=== PATIENT | male | born 1955 | race Caucasian/White ===

== ENCOUNTER 2019-01-02 15:30 | Outpatient (CLI) | payer OTHER, SELFPAY ==
--- NOTE | 2019-01-02 15:50 | DI.RAD_ITS ---
SYMPTOM/DIAGNOSIS: DRY COUGH, R05 PA AND LATERAL CHEST: No priors. There is a poor inspiration with crowding of the pulmonary vasculature. Heart size and pulmonary vasculature are within normal limits. No focal consolidating infiltrates, effusions or pneumothoraces are identified. No acute osseous abnormality is identified. IMPRESSION: 1. Limited exam due to poor inspiration. 2. No acute pulmonary process.
== END 2019-01-02 15:50 ==
PROVIDERS: PCP Nurse Practitioner; Visit Provider Nurse Practitioner
DX: R05 Cough (principal)
CPT/HCPCS: 71046

== ENCOUNTER 2019-05-07 01:57 | Outpatient (CLI) | payer OTHER, SELFPAY ==
[2019-05-07 08:37] LABS: ALT 35 U/L (12-78); AST 24 U/L (15-37); Albumin 3.9 g/dL (3.4-5.0); Alkaline Phosphatase 80 U/L (46-116); BUN 27 mg/dL (7-18); Bilirubin, Total 0.8 mg/dL (0.2-1.0); CREATININE 0.93 mg/dL (0.70-1.30); Calcium 8.6 mg/dL (8.5-10.1); Calculated LDL 103 mg/dL; Chloride 105 mmol/L (98-107); Cholesterol 160 mg/dL (50-200); Glucose 94 mg/dL (70-100); HDL Cholesterol 44 mg/dL (40-60); Potassium 4.5 mmol/L (3.5-5.1); Sodium 141 mmol/L (136-145); Total Protein 6.7 g/dL (6.4-8.2); Triglyceride 66 mg/dL (30-150)
== END 2019-05-07 02:17 ==
PROVIDERS: PCP Nurse Practitioner; Visit Provider Nurse Practitioner
DX: E78.00 Pure hypercholesterolemia, unspecified (principal)
CPT/HCPCS: 36415; 80053; 80061; 83721

== ENCOUNTER 2019-09-06 15:53 | Outpatient (REF) | payer OTHER, SELFPAY ==
--- NOTE | 2019-09-06 15:15 | SKI_PTH ---
PATIENT: Edwin Weiss LOC: [facility] U#:[id number] AGE/SX: 64/M ROOM: RE09/06/[address]: Stephanie Duval APRN : 1955 BED: DIS: 09/06/2019 SPEC #: [id number] RECD: 09/06/19 17:20 STATUS: MARTINE REQ #: [id number] JAMEE: 09/06/19 15:[address]: Stephanie Duval DEPT: Surgical Specimen RECD BY: Akila Velazquez ENTERED: 09/06/19 17:20 SP TYPE: ZAIDA HOLDER DR: Sirena Eli APRN Tissues: 1 - SKIN CYST/TAG/DEBRIDEMENT Procedures: SKIN LEVEL 4 Comments: [id number]
== END 2019-09-06 16:13 ==
LOC: LBN 15:53
PROVIDERS: PCP Nurse Practitioner; Visit Provider Nurse Practitioner Family
DX: L98.0 Pyogenic granuloma (principal)
CPT/HCPCS: 88304; 88305

== ENCOUNTER 2019-12-02 11:13 | Outpatient (CLI) | payer OTHER, SELFPAY ==
[2019-12-02 12:43] LABS: ALT 33 U/L (16-63); AST 21 U/L (15-37); Albumin 3.8 g/dL (3.4-5.0); Alkaline Phosphatase 76 U/L (46-116); Anion Gap 7.5 mmol/L (3-11); BUN 23 mg/dL (7-18); Bilirubin, Total 0.5 mg/dL (0.2-1.0); CO2 29.5 mmol/L (21.0-32.0); Calcium 8.5 mg/dL (8.5-10.1); Chloride 104 mmol/L (98-107); Glucose 100 mg/dL (74-106); Lipase 135 U/L (73-393); Potassium 3.8 mmol/L (3.5-5.1); Sodium 141 mmol/L (136-145); Total Protein 6.5 g/dL (6.4-8.2)
[2019-12-02 14:46] LABS: Abs Immature Grans 0.01 k/cumm (0.0-0.09); Absolute Basophil Count 0.02 k/cumm (0.0-0.2); Absolute Lymphocyte Count 1.71 k/cumm (1.2-3.4); Absolute Monocyte Count 1.06 k/cumm (0.11-0.7); Absolute Neutrophil Count 5.49 k/cumm (1.2-6.7); Basophils % 0.2; Eosinophils % 2.4; HCT 45.4 % (40.0-50.0); HGB 15.1 g/dL (13.5-17.5); Immature Grans % 0.1 %; Lymphocytes % 20.1; Mean Corp. HGB Concentration 33.3 g/dL (32.0-36.0); Mean Corpuscular Hemoglobin 31.6 pg (27.0-33.0); Mean Platelet Volume 10.3 fL (8.0-11.0); Monocytes % 12.5; Neutrophils % 64.7; Platelet Count 290 x1000/uL (130-400); RBC 4.78 m/cumm (4.50-6.00); RBC Distribution Width 12.3 % (11.8-14.1); White Blood Cell Count 8.49 k/cumm (4.4-10.8)
== END 2019-12-02 11:33 ==
PROVIDERS: PCP Nurse Practitioner; Visit Provider Nurse Practitioner
DX: R10.13 Epigastric pain (principal); R19.8 Other specified symptoms and signs involving the digestive system and abdomen; R10.32 Left lower quadrant pain; Z87.19 Personal history of other diseases of the digestive system
CPT/HCPCS: 36415; 80053; 83690; 85025

== ENCOUNTER 2019-12-03 17:47 | Emergency (ER) | payer OTHER, SELFPAY ==
[2019-12-03 17:58] VITALS: BP 161/97; PULSE 71; RESP 18; TEMP 36.6; O2SAT 98
[2019-12-03 18:40] LABS: Abs Immature Grans 0.02 k/cumm (0.0-0.09); Absolute Basophil Count 0.03 k/cumm (0.0-0.2); Absolute Eosinophil Count 0.23 k/cumm (0.0-0.7); Absolute Lymphocyte Count 1.94 k/cumm (1.2-3.4); Absolute Monocyte Count 0.85 k/cumm (0.11-0.7); Absolute Neutrophil Count 4.35 k/cumm (1.2-6.7); Basophils % 0.4; Eosinophils % 3.1; HCT 45.8 % (40.0-50.0); HGB 15.6 g/dL (13.5-17.5); Immature Grans % 0.3 %; Lymphocytes % 26.1; Mean Corp. HGB Concentration 34.1 g/dL (32.0-36.0); Mean Corpuscular Volume 93.9 fL (80-95); Mean Platelet Volume 9.8 fL (8.0-11.0); Monocytes % 11.5; Neutrophils % 58.6; Platelet Count 270 x1000/uL (130-400); RBC 4.88 m/cumm (4.50-6.00); RBC Distribution Width 12.2 % (11.8-14.1); White Blood Cell Count 7.42 k/cumm (4.4-10.8)
[2019-12-03 18:54] LABS: ALT 35 U/L (16-63); AST 25 U/L (15-37); Alkaline Phosphatase 73 U/L (46-116); Anion Gap 6.1 mmol/L (3-11); BUN 18 mg/dL (7-18); Bilirubin, Total 0.8 mg/dL (0.2-1.0); CO2 28.9 mmol/L (21.0-32.0); CREATININE 0.97 mg/dL (0.70-1.30); Calcium 8.5 mg/dL (8.5-10.1); Chloride 105 mmol/L (98-107); Glucose 96 mg/dL (74-106); Lipase 129 U/L (73-393); Potassium 3.9 mmol/L (3.5-5.1); Sodium 140 mmol/L (136-145); Total Protein 7.2 g/dL (6.4-8.2)
[2019-12-03] MEDS: Omnipaque 350 MG/ML 100 ML BTL IV (18:56)
--- NOTE | 2019-12-03 18:58 | DI.CT_ITS ---
EXAM: CT ABDOMEN PELVIS W CLINICAL HISTORY: abdominal pain, tender upper abd, rebound tender TECHNIQUE: Imaging Protocol: Axial computed tomography images with coronal and sagittal reformatted images were created and reviewed CONTRAST MATERIAL: Intravenous: Omnipaque 350 Contrast volume:100 mL Oral: No COMPARISON: No exams were available for comparison FINDINGS: ABDOMEN: Lung Bases: Dependent atelectasis. Liver: Normal density. No measurable mass. Portal, Superior Mesenteric, and Splenic Veins: Unremarkable. Gallbladder and Biliary Tract: No radiodense calculus or dilation. Pancreas: Normal density, no abnormal calcifications or inflammatory process. Spleen: Normal. Adrenals: No masses seen. Kidneys: Normal size, contour and axis. No radiodense stones or obstructive uropathy. 2.5 cm left catie al cyst. Abdominal Aorta: Abdominal portion non-dilated. Bowel: There is mild bowel wall thickening in loops of small bowel in the right upper quadrant of the abdomen. Mild increased attenuation in the surrounding mesentery is noted. The findings are suspic ious for an inflammatory or infectious enteritis. No bowel obstruction. Appendix is unremarkable. Peritoneal Cavity: No ascites, collection or mesenteric inflammatory response. Lymph Nodes: Within normal limits. Bones: Unremarkable. Soft Tissues: Unremarkable. PELVIS: Bladder: Symmetric distention, no gross wall thickening. Reproductive Organs: Unremarkable as visualized. Lymph Nodes: Within normal limits. Bones: Within normal limits. IMPRESSION: Findings suspicious for an inflammatory or infectious enteritis in the right abdomen. DATA REPOSITORY: All CT scans at this facility are submitted to the National Radiology Data Registry (NRDR) Dose Index Registry (DIR) with the [employer] [place] [employer] (ACR). RADIATION OPTIMIZATION: All CT scans at this facility use at least one of these dose optimization te chniques: automated exposure control; mA and/or kV adjustment per patient size (includes targeted exa ms where dose is matched to clinical indication); or iterative reconstruction.
--- NOTE | 2019-12-03 19:31 | DI.VRAD_ITS ---
PROCEDURE INFORMATION: Exam: CT Abdomen And Pelvis With Contrast Exam date and time: 12/03/2019 6:24 PM Age: 64 years old Clinical indication: Other: Abdominal pain, tender upper abd, rebound tender; Prior surgery; Surgery date: 6+ months TECHNIQUE: Imaging protocol: Computed tomography of the abdomen and pelvis with intravenous contrast. Radiation optimization: All CT scans at this facility use at least one of these dose optimization techniques: automated exposure control; mA and/or kV adjustment per patient size (includes targeted exams where dose is matched to clinical indication); or iterative reconstruction. Contrast material: OMNIPAQUE 350; Contrast volume: 100 ml; Contrast route: IV; COMPARISON: No relevant prior studies available. FINDINGS: Liver: There is hepatomegaly and fatty infiltration of the liver. No mass. Gallbladder and bile ducts: Normal. No calcified stones. No ductal dilation. Pancreas: Normal. No ductal dilation. Spleen: Normal. No splenomegaly. Adrenals: Normal. No mass. Kidneys and ureters: 25 mm cyst in left kidney. There is no hydronephrosis. Stomach and bowel: Unremarkable. No obstruction. No mucosal thickening. Appendix: A normal appendix is identified. Intraperitoneal space: Unremarkable. No free air. No significant fluid collection. Vasculature: Unremarkable. No abdominal aortic aneurysm. Lymph nodes: Unremarkable. No enlarged lymph nodes. Bladder: Unremarkable as visualized. Reproductive: The prostate gland is enlarged. Bones/joints: Unremarkable. No acute fracture. Soft tissues: Unremarkable. IMPRESSION: No acute abnormality. Dictated and Authenticated by: Joy Almaraz MD. Ordering:ANDRIA Burnett MD
--- NOTE | 2019-12-03 20:13 | W.ED.GENAD ---
Discharge Plan Disposition Patient Disposition: HOME Condition: Stable Discharge Details Chief Complaint: Abd Prob Clinical Impression: Abdominal pain Primary Care Provider: Sirena Eli ED Provider: Lex Camarillo Home Meds and New Rx's Prescriptions: Continued simvastatin 40 mg tablet 40 mg PO DAILY RF: 0 aspirin [Aspir-81] 81 MG tablet,delayed release (DR/EC) 81 mg PO DAILY Qty: 1 RF: 11 tamsulosin 0.4 mg capsule 0.4 mg PO DAILY Qty: 90 RF: 3 Discharge Instructions Instructions: Abdominal Pain (ED) Additional Instructions: Maintain a clear liquid diet tonight. You may advance her diet to soft bland diet tomorrow and then slowly advance thereafter. Please contact your primary care physician to arrange follow-up. Call tomorrow. Return to the ER immediately for any worsening or new concerning symptoms. Referrals: Sirena Eli, [employer] OFFICER [Primary Care Provider] - Discharge Data Discharge Date/Time-TO BE ENTERED AT DEPARTURE: 12/03/19 20:25 Medical Decision Making 64-year-old male presents with upper bilateral abdominal pain for the past 3 days that seems to be coming in sharp waves. He has tenderness diffuse abdomen with some rebound tenderness. I considered acute life-threatening intra-abdominal surgical process including bowel obstruction versus pancreatitis versus other. Labs were reviewed and nondiagnostic. No leukocytosis. Normal LFTs. Normal lipase. Lactate normal. CT of the abdomen pelvis was reviewed and interpreted by radiology:IMPRESSION:No acute abnormality. Patient was reassessed and was asleep when I first entered the room and remained comfortable with no significant tenderness on exam. Plan for outpatient follow-up with PCP. I encouraged the patient to return immediately for any worsening or new concerning symptoms. Patient verbalized understanding of discharge instructions. Lab Data Lab results reviewed: Yes I reviewed the patient's lab results. HPI General Mode of arrival: ambulatory. Date/Time Provider Initiated Documentation: 12/03/19 18:05. Limitations to Documentation: no limitations. Information obtained by: patient. HPI Narrative: 64-year-old male here with chief complaint of abdominal pain. Patient notes abdominal pain started 2 days ago and has persisted. Pain comes in sharp waves. Pain localized to upper abdomen. No modifiers. No associated fever, nausea, vomiting, or diarrhea. He has no associated chest pain or shortness of breath. Patient states that he has had similar pain localized to his left lower quadrant in the past with flares of diverticulitis. Related Data Home Medications Medication Instructions Recorded Confirmed aspirin [Aspir-81] 81 mg PO DAILY #1 tab-cap 11/27/15 12/03/19 tamsulosin 0.4 mg capsule 0.4 mg PO DAILY #90 cap 06/06/19 12/03/19 simvastatin 40 mg tablet 40 mg PO DAILY 12/02/19 12/03/19 Previous Rx's Medication Instructions Recorded tamsulosin 0.4 mg capsule 0.4 mg PO DAILY #90 cap 06/06/19 Allergies Allergy/AdvReac Type Severity Reaction Status Date / Time No Known Allergies Allergy Verified 12/03/19 18:01 General Stated Complaint: Abd Prob AIDA: 3 Review of Systems All systems reviewed & are unremarkable except as noted in HPI and below Constitutional Constitutional: Denies fever(s) Gastrointestinal Gastrointestinal: Reports as per HPI, Reports abdominal pain, Denies melena, Denies loose stools and Denies hematemesis [facility] Medical History (Updated 12/03/19 @ 22:53 by Lex Camarillo MD) Diverticulitis (Chronic) SCC (squamous cell carcinoma) (Acute) R chondral bowl 04/2003 Surgical History Status post epidural steroid injection (Acute 07/12/18) Cervical epidural steroid injection [facility] Family History Mother No problems noted. Father Diabetes Heart disease Myocardial infarction Sister No problems noted. Sister No problems noted. Sister No problems noted. Brother , cancer at age 70. No problems noted. Brother , cancer at age 70. No problems noted. Brother No problems noted. Son No problems noted. Son No problems noted. 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 Working smoke detector in home: Yes Carbon monox detector in home: Yes Do you feel safe at home: Yes Do you feel safe in your relationship?: Yes Exam Const General: cooperative and no acute distress HENMT Mouth: moist mucous membranes Eyes Conjunctivae: normal conjunctivae Sclera: normal sclerae Resp Auscultation: clear to auscultation bilaterally, no rales, no rhonchi and no wheezes Cardio Jugular venous pressure: no JVD Rate: regular rate and not tachycardic Rhythm: regular rhythm GI Palpation: soft, not firm, no guarding, no masses, not rigid, tender (diffuse, worse upper abdomen) with rebound tenderness and No ascites Auscultation: normal bowel sounds Skin General skin exam: no rashes or lesions noted Neuro General: alert, awake and tone normal Extrem General: no edema Psych Appearance: grossly normal Course Vital Signs Vital signs: Vital Signs Temperature 36.6 C 12/03/19 17:58 Pulse 71 12/03/19 17:58 Respiratory Rate 18 12/03/19 17:58 Blood Pressure 161/97 H 12/03/19 17:58 Pulse Oximetry 98 12/03/19 17:58 Temperature 36.6 C 12/03/19 17:58 Temperature Source Skin 12/03/19 17:58 Pulse 71 12/03/19 17:58 Respiratory Rate 18 12/03/19 17:58 Respiratory Effort Non-Labored 12/03/19 18:09 Blood Pressure 161/97 H 12/03/19 17:58 Pulse Oximetry 98 12/03/19 17:58 Oxygen Delivery Method Room Air 12/03/19 17:58 Oxygen Flow Rate 0 12/03/19 17:58 Pain Level 5 12/03/19 17:58 Lab/Test Results Lab/Test Results: Laboratory Tests Range/Units 12/03/19 12/03/19 12/03/19 18:15 18:15 18:15 WBC (4.4-10.8) k/cumm 7.42 RBC (4.50-6.00) m/cumm 4.88 Hgb (13.5-17.5) g/dL 15.6 Hct (40.0-50.0) % 45.8 MCV (80-95) fL 93.9 MCH (27.0-33.0) pg 32.0 MCHC (32.0-36.0) g/dL 34.1 RDW (11.8-14.1) % 12.2 Plt Count (130-400) x1000/uL 270 MPV (8.0-11.0) fL 9.8 Immature Gran % % 0.3 Neutrophils % 58.6 Lymphocytes % 26.1 Monocytes % 11.5 Eosinophils % 3.1 Basophils % 0.4 Absolute Neutrophils (1.2-6.7) k/cumm 4.35 Absolute Lymphocytes (1.2-3.4) k/cumm 1.94 Absolute Monocytes (0.11-0.7) k/cumm 0.85 H Absolute Eosinophils (0.0-0.7) k/cumm 0.23 Absolute Basophils (0.0-0.2) k/cumm 0.03 Sodium (136-145) mmol/L 140 Potassium (3.5-5.1) mmol/L 3.9 Chloride (98-107) mmol/L 105 Carbon Dioxide (21.0-32.0) mmol/L 28.9 Anion Gap (3-11) mmol/L 6.1 BUN (7-18) mg/dL 18 Creatinine (0.70-1.30) mg/dL 0.97 Estimated GFR/1.73 m2 (mL/min/1.73m2) >= 60.00 Glucose (74-106) mg/dL 96 Lactate (0.6-1.4) mmol/L 1.0 Calcium (8.5-10.1) mg/dL 8.5 Total Bilirubin (0.2-1.0) mg/dL 0.8 AST (15-37) U/L 25 ALT (16-63) U/L 35 Alkaline Phosphatase (46-116) U/L 73 Total Protein (6.4-8.2) g/dL 7.2 Albumin (3.4-5.0) g/dL 4.0 Lipase (73-393) U/L 129
[2019-12-03 20:24] VITALS: BP 145/94; PULSE 61; RESP 16; TEMP 36.9; O2SAT 95
== END 2019-12-03 20:25 | disposition home or self-care (01) ==
PROVIDERS: Emergency Provider Student in an Organized Health Care Education/Training Program; PCP Nurse Practitioner
DX: R10.10 Upper abdominal pain, unspecified (principal)
CPT/HCPCS: 36415; 80053; 83690; 99285; 74177; 83605; 85025; 99284; J3490

== ENCOUNTER 2019-12-30 06:03 | Day surgery (SDC) | payer OTHER, SELFPAY ==
[2019-12-30 06:13] VITALS: BP 131/86; PULSE 73; RESP 16; TEMP 36.6; O2SAT 98
[2019-12-30] MEDS: Lactated Ringers 1,000 ML 80 ML IV (06:36)
--- NOTE | 2019-12-30 06:43 | W.COLOREPORT ---
Date of service: 12/30/19 Time of Service: 07: Colonoscopy Report Date of procedure: 12/30/19 Pre-op diagnosis general: Abnormal CT scan/ Colon Cancer Screening Post-op diagnosis procedure note: other (Colorectal polyps and diverticulosis) Procedure: Colonoscopy with polypectomy Surgeon: Cintia Amaral Anesthesia proc note operative: other (General/ ASA 2/Bessy Guaman, NIKOLE) Estimated blood loss (mL): 5 Pathology: other (Cecal polyps x3, ascending polyp, descending polyp, sigmoid polyp, rectal polyp) Complications: None Disposition: same day Indications: Mr. Weiss is a pleasant 64 year old male who is here to discuss a screening colonoscopy. His last Colonoscopy was in 2009 and showed diverticulosis. He has had one episode of diverticulitis in the past. He has had no changes in bowel habits, melena or hematochezia. He does tell me that he started having LUQ discomfort starting last monday. He went to his PCP who ordered an outpatient CT scan. On monday the pain was worse and so he went to the ER. The CT scan showed a few loops of mildly thickened small bowel. He denies any diarrhea. His discomfort has gotten a little better over the last few days. He denies fevers. Labs in the ER were normal. Risks, benefits and complications have been reviewed. Complications include but are not limited to bleeding, pain, perforation, missed small lesion/polyp, sore throat, aspiration and adverse reaction to the medications. Questions were entertained and answered to their satisfaction and they wished to proceed. No guarantees were given or implied. Prep: Miralax/Dulcolax Procedure Start Time: : Procedure End Time: :01 Retraction Time: 30 minutes Findings: Multiple sessile polyps Handful of diverticula in the transverse and descending colon Procedure Description: After informed consent was obtained the patient was taken to the procedure room and placed in a left decubitous position. Monitors were applied and a time out was done. The patients name, date of , procedure, allergies to medications and metal in their body was reviewed. The patient was then sedated. Once sedated and comfortable a rectal exam was done. External exam was normal. Internal exam revealed a normal sphincter tone and no palpable masses. The prostate felt smooth. The scope was then introduced and retro-flexed. No internal hemorrhoids, masses or polyps were identified on retro-flexion. The scope was then advanced to the cecum without difficulty. The TI and appendiceal orifice were identified. The prep was good. The scope was then slowly retracted over 30 minutes back into the rectum. Polyps were removed with cold forceps in the cecum, ascending, descending, sigmoid and rectum. There was mild diverticulosis of the colon. The scope was removed and the patient was woken up and taken back to Same day surgery in stable condition. The patient tolerated the procedure well and there were no immediate complications. Follow up: The patient should follow up in 3-5 years unless they develop changes in bowel habits or other new gastrointestinal complaints.
--- NOTE | 2019-12-30 06:44 | W.PM.DSUDISC ---
Discharge Plan Disposition Patient Disposition: HOME Condition: Good Discharge Details Reason For Visit: Abnormal CT scan/ Colon Cancer Screening Attending Provider: Cintia Amaral Primary Care Provider: Sirena Eli Home Meds and New Rx's Prescriptions: Continued simvastatin 40 mg tablet 40 mg PO DAILY RF: 0 aspirin [Aspir-81] 81 MG tablet,delayed release (DR/EC) 81 mg PO DAILY Qty: 1 RF: 11 tamsulosin 0.4 mg capsule 0.4 mg PO DAILY Qty: 90 RF: 3 Discharge Instructions Instructions: Colorectal Polyps (GEN), Diverticulosis (DC) Additional Instructions: Findings: mild diverticulosis 7 polyps Follow up: 3-5 years Please call if you develop: fevers >101.5 Nausea or Vomiting Abdominal pain that is not transient DAY SURGERY UNIT POST ENDOSCOPY INSTRUCTIONS 1. Because there will be medication in your system for the next 24 hours, you may feel a little sleepy. Your coordination will be affected. Therefore: a. Do not drive or operate dangerous equipment for 24 hours. b. Do not drink alcohol beverages for 24 hours (not even beer). c. Plan to go home and rest for the day. 2. Generally there are no restrictions on your activity after a day or so has gone by, but you may feel a bit fatigued for a few days. 3 After you arrive home you may have a light meal and return to a normal diet as you can tolerate it without feeling sick to your stomach. 4. After surgery, you may feel pain or discomfort. This should be only transient, but if it persists please contact your doctor. 5. If there are any questions regarding the findings of your procedure, please feel free to contact your doctor. 6. If you are unable to contact your doctor with a problem, contact the hospital at [phone]. 7. Continue all your regular medications unless directed otherwise. I understand the above instructions and have no questions. Signature of Patient or Responsible Adult Escort Date/Time Name of Responsible Adult Escort Signature of Nurse Date/Time Activity:: Activity as Tolerated Diet:: high fiber diet Discharge Orders Discharge Orders: Discharge Order (Routine); Ordered 12/30/19 Ordered By: Cintia Amaral DS: Diagnosis Discharge Diagnosis (1) Colorectal polyps: Status: Acute
--- NOTE | 2019-12-30 07:34 | BOWEL_PTH ---
PATIENT: Edwin Weiss LOC: [facility] U#:[id number] AGE/SX: 64/M ROOM: RE12/30/[address]: Cintia Amaral MD : 1955 BED: DIS: 12/30/2019 SPEC #: [id number] RECD: 12/30/19 12:37 STATUS: MARTINE RE #: [id number] JAMEE: 12/30/19 07:[address]: Cintia Amaral DEPT: Surgical Specimen RECD BY: Akila Velazquez ENTERED: 12/30/19 12:40 SP TYPE: Bowel OTHR DR: Sirena Eli APRN Tissues: 1 - BIOPSY BOWEL 2 - BIOPSY BOWEL 3 - BIOPSY BOWEL 4 - BIOPSY BOWEL 5 - BIOPSY BOWEL Procedures: GROSS AND MICRO LEVEL 4 Comments: [id number]
[2019-12-30 08:35] VITALS: BP 125/79; PULSE 59; RESP 16; TEMP 36.4; O2SAT 98
== END 2019-12-30 09:00 | disposition home or self-care (01) ==
PROVIDERS: PCP Nurse Practitioner; Visit Provider Surgery
PROC: 0DJD8ZZ Inspection of Lower Intestinal Tract, Via Natural or Artificial Opening Endoscopic (ICD-10-PCS; CPT 45378; principal; 2019-12-30 07:30)
DX: Z12.11 Encounter for screening for malignant neoplasm of colon (principal); D12.0 Benign neoplasm of cecum; D12.2 Benign neoplasm of ascending colon; D12.4 Benign neoplasm of descending colon; K63.5 Polyp of colon; K62.1 Rectal polyp; K57.30 Diverticulosis of large intestine without perforation or abscess without bleeding; R93.5 Abnormal findings on diagnostic imaging of other abdominal regions, including retroperitoneum
CPT/HCPCS: 45380; 88305; J2704

== ENCOUNTER 2021-01-08 06:11 | Day surgery (SDC) | payer OTHER, SELFPAY ==
[2021-01-08 06:19] VITALS: BP 140/95; PULSE 70; RESP 18; TEMP 36.6; O2SAT 97
[2021-01-08] MEDS: Lactated Ringers 1,000 ML 80 ML IV (06:36)
--- NOTE | 2021-01-08 07:00 | HPE_ITS ---
Date of service: 01/08/21 Time of Service: 07:00 History of Present Illness History of Present Illness Chief Complaint: Symptomatic hammertoes right foot Narrative: 65-year-old male with increasing pain associated with hallux malleus deformity and hammertoes affecting digits 2, 3, 4, and 5 which is now interfering with comfortable shoe gear and ambulatory activities. Nonoperative treatments have failed to provide lasting relief of symptoms he is seeking surgical repair. [facility] Medical History Abdominal pain BPH without obstruction/lower urinary tract symptoms (07/04/13) Carpal tunnel syndrome (07/04/13) Cervical radiculopathy (11/21/14) prob R C5, C6; epi steroid C7 [facility] [place] 03/03/15 Diverticulitis Enteritis Erectile dysfunction (10/10/14) Ganglion of left hand H/O seborrheic keratosis R lateral cheek-Dr Myrick Hypercholesterolemia (07/25/13) PCEq 9.5%; FRS 15%; LDL baseline 156 Prehypertension (10/10/14) SCC (squamous cell carcinoma) R chondral bowl 04/2003 Verruca vulgaris Surgical History Hernia, umbilical History of biopsy R parietal scalp 07/02/19-Dr Myrick History of uvulopalatopharyngoplasty Hx of elbow surgery States he had a detached muscle repaired. S/P colonoscopy (~12/30/19) Status post epidural steroid injection (07/12/18) Cervical epidural steroid injection [facility] Family History Mother Hypertension Father Diabetes Heart disease Myocardial infarction Cancer Social History (Updated 08/06/20 @ 15:04 by Belkys Dorsey RN) Smoking/Tobacco Use Status: Never Smoking risk assessment performed?: Yes Alcohol Intake: current Alcohol Intake frequency: 0-2 drinks per day Alcohol type: beer Drug use: Never Substance use type: does not use Adopted: No Caregiver/Support person: No Household members: spouse Housing: house Number of Children: 2 number of grandchildren: 3 Communication Needs: None Do you need help understanding health information?: Often current occupation: works at [employer] Pets and animals: No Sexually active: Yes Do you think of yourself as: straight/heterosexual Current gender identity: male What is your relationship status?: How often do you talk on the phone with friends or family?: twice per week How often do you get together with friends or relatives?: once per week How often do you attend nondenominational or hoahaoism services?: 1-3 times per year Do you belong to any clubs or organized social groups?: yes Panel score (0-1 are the most socially isolated patients): 3 What type of physical activity do you participate in: walking Duration: > 90 minutes/day Frequency: 5-6 times per week Special erika needs: No Seatbelt use: sometimes Drive intox 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 Working smoke detector in home: Yes Carbon monox detector in home: Yes Additional Social history: unable to assess [facility] Home Medications and Allergies Allergies Allergy/AdvReac Type Severity Reaction Status Date / Time No Known Allergies Allergy Verified 01/08/21 06:10 Home Medications Medication Instructions Recorded Confirmed Type aspirin [Aspir-81] 81 mg PO DAILY #1 tab-cap 11/27/15 01/06/21 History simvastatin 40 mg tablet 40 mg PO DAILY #90 tab 01/23/20 01/08/21 Rx tamsulosin 0.4 mg capsule 0.4 mg PO DAILY #90 cap 05/18/20 01/08/21 Rx Exam Narrative Exam Narrative: 65-year-old white male looking his stated age in no acute distress. Head is normocephalic Eyes PERRLA Hearing is adequate Uvula was midline, airway looks assessable no suspicious oral lesions noted Heart had regular rate and rhythm without gallops rubs murmurs noted Lung reed are clear Abdomen was soft, bowel sounds x4 Peripheral pulses at the ankle are palpable, CFT under 3 seconds to all toes, no edema calves are soft to palpation Muscle groups 5 out of 5 bilaterally skeletal exam is remarkable for contracture of all toes on the right foot including hallux malleus deformity at the interphalangeal joint, flexion contracture of toes 2 through 5. Periarticular tenderness noted. The digits are semireducible. Neurologically he is grossly intact. Toes are downgoing no focal deficits noted at this time. He has a neuroma of the left third intermetatarsal space which is currently minimally symptomatic. Impressions: Hallux malleus deformity right foot hammertoe deformities 2 through 5 right foot Plan: Edwin is being brought to the OR for surgical repair digits 1 through 5 right foot. He understands potential risk and complications pertaining to pain, scarring, infection, malunion, nonunion, delayed union, recurrence of deformities potentially requiring revisional procedures and/or removal of hardware. Neurologic injury was discussed potential for CRPS discussed. All questions have been answered in detail. No promises made final outcome of surgery. Informed consents been obtained. Results Last Vital Signs Temp 36.6 C 01/08/21 06:19 Pulse 70 01/08/21 06:19 Resp 18 01/08/21 06:19 BP 140/95 H 01/08/21 06:19 Pulse Ox 97 01/08/21 06:19 COVID-19 Screening Have you, or household traveled for leisure in last 14 days?: No Had IN PERSON contact w/suspected or confirmed C-19 person: No
[2021-01-08] MEDS: ceFAZolin 1 GM/50 ML BAG IVPB (07:37)
[2021-01-08] MEDS: Bupivacaine 0.5% Pres-Free 30 ML VIAL (07:54)
[2021-01-08] MEDS: Lidocaine 1% Multi-Dose 50 ML VIAL (07:54)
[2021-01-08] MEDS: Dexamethasone 4 MG/ML VIAL (09:23)
--- NOTE | 2021-01-08 09:40 | W.PM.DSUDISC ---
Discharge Plan Disposition Patient Disposition: HOME Condition: Good Discharge Details Reason For Visit: Correction hammertoes right foot Attending Provider: Ej De Leon Primary Care Provider: Sirena Eli Home Meds and New Rx's Prescriptions: New ibuprofen 600 mg tablet 600 mg PO QID PRN (Reason: pain and inflammation) Qty: 60 RF: 1 hydrocodone-acetaminophen [Vicodin HP] 10-300 mg tablet 1 tab PO Q6H PRN (Reason: pain) Qty: 9 RF: 0 Continued tamsulosin 0.4 mg capsule 0.4 mg PO DAILY Qty: 90 RF: 3 aspirin [Aspir-81] 81 MG tablet,delayed release (DR/EC) 81 mg PO DAILY Qty: 1 RF: 11 simvastatin 40 mg tablet 40 mg PO DAILY Qty: 90 RF: 3 Discharge Instructions Stand Alone Forms: Roxy Instructions-DSU, Jenny Robb (DSU) Activity:: Elevate Remove Dressings/Wound Care:: Do Not Remove Shower/Bathe:: Cover Diet:: Normal Diet Discharge Orders Discharge Orders: Discharge Order (Routine); Ordered 01/08/21 Ordered By: Ej De Leon DS: Diagnosis Discharge Diagnosis (1) Hammertoe of right foot: Status: Acute
--- NOTE | 2021-01-08 09:46 | ROE_ITS ---
Date of service: 01/08/21 Time of Service: 09:46 Operative Note Operative Note Refer to Anesthesia Record Edwin is brought to the operative suite, placed in supine position. Prepped and draped in the usual sterile podiatric fashion. Anesthesia was provided through IV general and local block of the right foot utilizing the digit digital blocks consisting of a total of 20 cc of a 50: 50 mixture, 1% lidocaine plain, 0.5% Marcaine plain. Timeout was performed for safety surgery per protocol The right foot was exsanguinated well-padded ankle tourniquet inflated 250 mmHg. Attention was directed to the great toe with 2 converging transverse incisions were made over the interphalangeal joint of the hallux. Skin wedge was excised. The articular cartilage was noted to be degenerated and resected with power instrumentation. The joint surfaces were fenestrated in preparation for a fusion procedure. Fixation was achieved utilizing a 3.5 cannulated screw without difficulty. The hallux appeared to be in excellent position. Copious irrigation was performed. The extensor tendon was repaired with simple interrupted suture 3-0 Vicryl. Skin was coapted with simple interrupted suture of 4-0 nylon. Attention was now directed to the lesser toes on the right foot. 2 converging semielliptical incisions were placed longitudinally dorsally over the second third fourth and fifth digits. Each maneuver was performed simultaneously alternately on each toe. The skin wedges were all excised consecutively. Soft tissue mobilization was performed the extensor tendon from the surrounding soft tissue. A transverse tenotomy capsulotomy was then performed at the PIPJ level of the second toe third toe fourth toe and fifth toe consecutively. With power instrumentation the head of the proximal phalanges was resected at its surgical neck starting with the second toe and ending on the fifth toe. The bony segments were removed. With a hand rasp all rough and bony edges were rasped smooth. Each toe was copiously irrigated with normal saline. Fixation was now achieved with a 0.062 K wire in retrograde fashion for the second toe and a 0.045 K wire for toes 3 and 4 the fifth toe was not wired. The extensor tendons were shortened appropriately and sutured end-to-end with simple interrupted suture 3-0 Vicryl the skin was then coapted on all incisions with 4- 0 nylon simple interrupted suture. Xeroform Betadine ointment gauze fluff compression dressings were applied. Sharp and sponge counts were correct x2. Tourniquet was released at 89 minutes with vascularity returning immediately to all toes. Edwin left the OR with vital signs stable vascular status intact will be followed by myself in the office next week.
[2021-01-08 10:10] VITALS: BP 122/63; PULSE 76; RESP 18; TEMP 36.4; O2SAT 95
== END 2021-01-08 10:55 | disposition home or self-care (01) ==
PROVIDERS: PCP Nurse Practitioner; Visit Provider Podiatrist
PROC: (CPT 28285; principal; 2021-01-08 07:30)
PROC: (CPT 28285; 2021-01-08 07:30)
DX: M20.41 Other hammer toe(s) (acquired), right foot (principal); E78.00 Pure hypercholesterolemia, unspecified; N40.0 Benign prostatic hyperplasia without lower urinary tract symptoms
CPT/HCPCS: 28285 ×5; NC; J0690; J1100; J1885; J2405; J2704

== ENCOUNTER 2021-03-05 01:55 | Outpatient (CLI) | payer OTHER, SELFPAY ==
[2021-03-05 09:18] LABS: ALT 35 U/L (16-63); AST 18 U/L (15-37); Albumin 3.8 g/dL (3.4-5.0); Alkaline Phosphatase 82 U/L (46-116); Anion Gap 6.6 mmol/L (3-11); BUN 19 mg/dL (7-18); Bilirubin, Total 0.5 mg/dL (0.2-1.0); CO2 30.4 mmol/L (21.0-32.0); Calcium 8.4 mg/dL (8.5-10.1); Calculated LDL 113 mg/dL (<100); Chloride 104 mmol/L (98-107); Cholesterol 165 mg/dL (<200); Glucose 98 mg/dL (74-106); HDL Cholesterol 39 mg/dL (40-60); Potassium 4.5 mmol/L (3.5-5.1); Sodium 141 mmol/L (136-145); Total Protein 6.6 g/dL (6.4-8.2); Triglyceride 67 mg/dL (<150)
== END 2021-03-05 01:56 | disposition home or self-care (01) ==
LOC: LBO 01:55
PROVIDERS: PCP Nurse Practitioner; Visit Provider Nurse Practitioner
DX: E78.00 Pure hypercholesterolemia, unspecified (principal)
CPT/HCPCS: 36415; 80053; 80061

== ENCOUNTER → 2021-10-19 10:56 | Outpatient (BNVA) | payer BC, MEDICARE, SELFPAY | PROVIDERS: PCP Nurse Practitioner; Referring Provider Nurse Practitioner; Visit Provider Nurse Practitioner Gerontology | DX: R69 Illness, unspecified (principal) | CPT/HCPCS: 36415; 99214 ==

== ENCOUNTER 2021-10-19 16:54 | Outpatient (REF) | payer BC, MEDICARE, SELFPAY ==
[2021-10-20 18:00] LABS: PSA, Screening 6.3 ng/mL (0.0-4.5)
== END 2021-10-19 16:55 | disposition home or self-care (01) ==
LOC: NCHCN 16:54
PROVIDERS: PCP Nurse Practitioner; Visit Provider Nurse Practitioner Gerontology
DX: N40.0 Benign prostatic hyperplasia without lower urinary tract symptoms (principal); Z12.5 Encounter for screening for malignant neoplasm of prostate
CPT/HCPCS: 84153

== ENCOUNTER → 2021-11-30 08:22 | Outpatient (BNVA) | payer BC, SELFPAY | PROVIDERS: PCP Nurse Practitioner; Referring Provider Nurse Practitioner; Visit Provider Nurse Practitioner Gerontology | DX: R69 Illness, unspecified (principal) | CPT/HCPCS: 36415 ==

== ENCOUNTER 2021-11-30 09:39 | Outpatient (REF) | payer BC, SELFPAY ==
[2021-11-30 11:46] LABS: CREATININE 1.1 mg/dL (0.70-1.30)
== END 2021-11-30 09:40 | disposition home or self-care (01) ==
LOC: LBN 09:39
PROVIDERS: PCP Nurse Practitioner; Visit Provider Nurse Practitioner Gerontology
DX: R97.20 Elevated prostate specific antigen [PSA] (principal)
CPT/HCPCS: 82565

== ENCOUNTER 2022-04-11 04:13 | Outpatient (CLI) | payer BC, SELFPAY | END 2022-04-11 04:14 | disposition home or self-care (01) | LOC: LBO 04:13 | PROVIDERS: PCP Nurse Practitioner; Visit Provider Nurse Practitioner Gerontology | DX: R97.20 Elevated prostate specific antigen [PSA] (principal) | CPT/HCPCS: 36415; 84153 ==

== ENCOUNTER 2022-08-11 13:21 | Outpatient (CLI) | payer BC, SELFPAY ==
--- NOTE | 2022-08-11 13:15 | RT.EKG_ITS ---
APPROVED REPORT Exam: Resting ECG Reason for Exam: lightheadedness Patient Location: O HR:73 bpm ECG Measurements Heart Rate 73 AXIS CA 151 P 33 QRSd 87 QRS -18 QT 376 T 36 QTc 415 Conclusion Sinus rhythm...normal P axis, V-rate 50- 99 Possible inferior infarct, old...Q >35mS, II III aVF Suspected chest leads reversed, V1 for V3
== END 2022-08-11 13:22 | disposition home or self-care (01) ==
LOC: DI.KIM 13:22
PROVIDERS: PCP Nurse Practitioner; Visit Provider Nurse Practitioner
DX: R42 Dizziness and giddiness (principal); R94.31 Abnormal electrocardiogram [ECG] [EKG]
CPT/HCPCS: 93010

== ENCOUNTER 2022-08-26 01:45 | Outpatient (CLI) | payer BC, SELFPAY ==
--- OUTSIDE RECORDS SUMMARY | 2022-08-26 01:47 | XMS_ITS | Clinical Summary ---
:1955 Author Organization [facility] [place] [address] Care Team Providers Name Role Phone SreedharSirena APRN Primary Care Provider Allergies No known active allergies Medications Medication Sig Dispensed Refills Start Date End Date Status aspirin 325 mg Tablet Take 325 mg by 0 Active mouth daily. tamsulosin (FLOMAX) 0.4 Take 0.4 mg by 0 Active mg Capsule, Sust. mouth daily. Release 24 hr simvastatin (ZOCOR) 40 TAKE ONE TABLET 3 02/07/2017 Active mg Tablet BY MOUTH EVERY DAY zoster vaccine live, PF, Once 0 11/27/2015 Active (ZOSTAVAX) 19,400 unit/0.65 mL Suspension for Reconstitution Active Problems Problem Noted Date Mucous cyst of finger 07/06/2017 Seborrheic keratosis 04/03/2017 Solar lentigo 04/03/2017 Verruca vulgaris 07/16/2015 History of SCC (squamous cell carcinoma) of skin 07/16 Radiculopathy of cervical region 02/24/2015 Social History Tobacco Use Types Packs/Day Years Used Date Never Smoker Smokeless Tobacco: Never Used Sex Assigned at Date Recorded Not on file Last Filed Vital Signs Vital Sign Reading Time Taken Comments Blood Pressure 146/88 07/12/2018 2:22 PM EDT Pulse 84 07/12/2018 2:22 PM EDT Temperature - - Respiratory Rate 16 07/12/2018 2:22 PM EDT Oxygen Saturation 96% 07/12/2018 2:22 PM EDT Inhaled Oxygen Concentration - - Weight 102.1 kg (225 lb) 07/12/2018 2:13 PM EDT Height 193 cm (6' 4) 07/12/2018 2:13 PM EDT Body Mass Index 27.39 07/12/2018 2:13 PM EDT Plan of Treatment Health Maintenance Due Date Last Done Comments Covid-19 Vaccine (#1) 1955 Hepatitis C Screening 1973 Tdap adult 1974 Tetanus vaccine 1974 Colonoscopy 2000 Zoster vaccine (1 of 2) 2005 Advance Directive 2010 Pneumoccocal Vaccine: 65+ (1 - PCV) 2020 Influenza (Flu) vaccine (1 of 1 - Influenza standard 06/30/2022 series) Insurance Payer Benefit Plan / Subscriber ID Effective Dates Phone Addre ss Type Group MEDICARE MEDICARE PART [id number] 2020-Presen [id number] [place] [facility] [place] [address] [facility] [id number] 2021-Prese [phone] [address] [facility] OOS [address] [place] [address] Care Teams Dam Attendant Relationship Specialty Start Date End Date Sirena Eli APRN PCP - General Internal Medicine 07/04/19 [facility] [address] [place], [place] [id number]
--- OUTSIDE RECORDS SUMMARY | 2022-08-26 01:47 | XMS_ITS | Encounter Summary ---
:1955 Author Organization [facility] [place] [address] Care Team Providers Name Role Phone Sirena Eli APRN Primary Care Provider Encounter Details Date Type Department Care Team Description 12/31/2021 Travel Social History Tobacco Use Types Packs/Day Years Used Date Never Smoker Smokeless Tobacco: Never Used Sex Assigned at Date Recorded Not on file documented as of this encounter Plan of Treatment Not on filedocumented as of this encounter Visit Diagnoses Not on filedocumented in this encounter Care Teams Director Music Relationship Specialty Start Date End Date Sirena Eli APRN PCP - General Internal Medicine 07/04/[address] [place] [id number] documented as of this encounter
--- OUTSIDE RECORDS SUMMARY | 2022-08-26 01:47 | XMS_ITS | Encounter Summary ---
:1955 Author Organization [facility] [place] [address] Care Team Providers Name Role Phone Sirena Eli APRN Primary Care Provider Reason for Referral Diagnostic Test (Routine) - Closed Specialty Diagnoses / Procedures Referred By Contact Refer red To Contact Radiology Diagnoses Elevated PSA Cynthia Virk APRN [facility] Rad Mri Procedures MRI Pelvis wwo (Prostate) [address] [place] [id number] Referral ID Status Reason Start Date Expiration Date Visits V isits Requested Authorized [id number] Closed Specialty 12/03/2021 06/02/2023 1 1 Service Requested Reason for Visit Diagnostic Test (Routine) - Closed Specialty Diagnoses / Procedures Referred By Contact Refer red To Contact Radiology Diagnoses Elevated PSA Cynthia Virk APRN [facility] Rad Mri Procedures MRI Pelvis wwo (Prostate) [address] [place] [id number] Referral ID Status Reason Start Date Expiration Date Visits V isits Requested Authorized [id number] Closed Specialty 12/03/2021 06/02/2023 1 1 Service Requested Encounter Details Date Type Department Care Team Description 12/31/2021 Hospital Encounter MRI at [facility] [place] Cynthia Virk, Elevated PSA [facility] [address] [place] [phone] [facility] [place] [phone] (Wo rk) Social History Tobacco Use Types Packs/Day Years Used Date Never Smoker Smokeless Tobacco: Never Used Sex Assigned at Date Recorded Not on file documented as of this encounter Medications at Time of Discharge Medication Sig Dispensed Refills Start Date End Date zoster vaccine live, PF, Once 0 11/27/2015 (ZOSTAVAX) 19,400 unit/0.65 mL Suspension for Reconstitution simvastatin (ZOCOR) 40 mg TAKE ONE TABLET BY 3 Tablet MOUTH EVERY DAY aspirin 325 mg Tablet Take 325 mg by 0 mouth daily. tamsulosin (FLOMAX) 0.4 mg Take 0.4 mg by 0 Capsule, Sust. Release 24 hr mouth daily. documented as of this encounter Plan of Treatment Not on filedocumented as of this encounter Procedures Procedure Name Priority Date/Time Associated Diagnosis Comme nts MRI PELVIS WWO Routine 12/31/2021 3:47 PM Elevated PSA Results for this (PROSTATE) EST procedure are i n the results section. documented in this encounter Results MRI Pelvis wwo (Prostate) (12/31/2021 3:47 PM EST) Anatomical Region Laterality Modality Pelvis Magnetic Resonance Specimen (Source) Anatomical Location Collection Method / Collectio n Time Received Time / Laterality Volume Impressions 12/31/2021 4:06 PM EST No focal lesions. ??BPH. PI-RADS 2. Clin ically significant cancer is unlikely to be present. PI-RADS v2.1 Assessment Categories PI-RADS 1 -- Very low (clinically signif icant cancer is highly unlikely to be present) PI-RADS 2 -- Low (clinically significant cancer is unlikely to be present) PI-RADS 3 -- Intermediate (the presence of clinically significant cancer is equivocal) PI-RADS 4 -- High (clinically significan t cancer is likely to be present) PI-RADS 5 -- Very high (clinically signi ficant cancer is highly likely to be present) References: Damian S1, Juan Carlos JH1, Ibarra S1, Smi th C1, Gardner J1, Czarniecki M1, Gold S1, Motley G1, Rayn K1, Josh MJ1, Don BJ1, Isaac PA1, Camila PL1, Debra B1. ??A Grading System for the Assessment of Ris k of Extraprostatic Extension of Prostate Cancer at Multiparametric MRI. Radiology. 2019 Dec;290(3):709-719. doi: 10.1148/radiol.5378861863. Epub 2018Nov 20. Thank you for letting us participate in the care of this patient. ??If you are a health care provider and have any questi ons regarding this report, please contact the number below. ??For patients who have questions please contact the health home care aide that requested your imaging first. ? Electronically signed by: Martell ayers MD, [facility] ([phone]), at 12/31/2021 4:06 PM Narrative 12/31/2021 4:06 PM EST EXAMINATION: MRI PELVIS WWO (PROSTATE) CLINICAL HISTORY: Elevated PSA REASON FOR PROSTATE EXAM: HAS PATIENT HAD PREVIOUS BIOPSY?:No, MOST RECENT PSA LEVEL:6.3 EDU SCORE: TECHNIQUE: Multiparametric MRI of the pr ostate prior to and following IV administration of 20 cc of Dotarem contr ast. ?? QUALITY: Meets PI-RADS technical criteri a. COMPARISON: None FINDINGS: Prostate dimensions: 4.8 x 8 x 6cm. Estimated prostate volume: 120cc (X x Y x Z x 0.52) PSA density: 0.05 (PSA/prostate volume > 0.15 susp, 0.25 highly susp) Peripheral zone: T2: Linear intensities. No focal lesions. Combined PI-RADs: 2. Transition zone: T2: Typical encapsulate d and homogenous circumscribed nodules. No focal lesions. Combined PI-RADs: 2. Extraprostatic disease: N/A Other findings: None. Procedure Note Martell Lance MD - 12/31/2021For matting of this note might be different from the original. EXAMINATION: MRI PELVIS WWO (PROSTATE) CLINICAL HISTORY: Elevated PSA REASON FOR PROSTATE EXAM: HAS PATIENT HAD PREVIOUS BIOPSY?:No, MOST RECENT PSA LEVEL:6.3 EDU SCORE: TECHNIQUE: Multiparametric MRI of the pr ostate prior to and following IV administration of 20 cc of Dotarem contr ast. QUALITY: Meets PI-RADS technical criteri a. COMPARISON: None FINDINGS: Prostate dimensions: 4.8 x 8 x 6cm. Estimated prostate volume: 120cc (X x Y x Z x 0.52) PSA density: 0.05 (PSA/prostate volume > 0.15 susp, 0.25 highly susp) Peripheral zone: T2: Linear intensities. No focal lesions. Combined PI-RADs: 2. Transition zone: T2: Typical encapsulate d and homogenous circumscribed nodules. No focal lesions. Combined PI-RADs: 2. Extraprostatic disease: N/A Other findings: None. IMPRESSION No focal lesions. BPH. PI-RADS 2. Clinic ally significant cancer is unlikely to be present. PI-RADS v2.1 Assessment Categories PI-RADS 1 -- Very low (clinically signif icant cancer is highly unlikely to be present) PI-RADS 2 -- Low (clinically significant cancer is unlikely to be present) PI-RADS 3 -- Intermediate (the presence of clinically significant cancer is equivocal) PI-RADS 4 -- High (clinically significan t cancer is likely to be present) PI-RADS 5 -- Very high (clinically signi ficant cancer is highly likely to be present) References: Damian S1, Juan Carlos JH1, Ibarra S1, Smi th C1, Gardner J1, Czgiancarlo M1, Gold S1, Motley G1, Rayduane K1, Josh MJ1, Don BJ1, Isaac PA1, Camila PL1, Debra B1. A Grading System for the Assessment of Ris k of Extraprostatic Extension of Prostate Cancer at Multiparametric MRI. Radiology. 2019 Mar;290(3):709-719. doi: 10.1148/radiol.9347012509. Epub 2018Nov 20. Thank you for letting us participate in the care of this patient. If you are a health care provider and have any questi ons regarding this report, please contact the number below. For patients w ho have questions please contact the health home care aide that requested your imaging first. Electronically signed by: Martell ayers MD, [facility] ([phone]), at 12/31/2021 4:06 PM Cynthia Virk APRN IMG MRI ORDERABLES documented in this encounter Visit Diagnoses Diagnosis Elevated PSA Elevated prostate specific antigen (PSA) documented in this encounter Administered Medications Inactive Administered Medications - up to 3 most recent administrations Medication Order MAR Action Action Date Dose Rate Site gadoterate meglumine (Dotarem) Given 12/31/2021 3:35 PM EST 20 m Ls (0.5 mMol/mL) injection solution 0-100 mL 0-100 mL, Intravenous, ONCE PRN, 1 dose, Starting on Mon12/31/21 at 1455, Until Mon12/31/21 at 1535, Per Protocol, Radiology Contrast, Routine documented in this encounter Care Teams Wood Panel Inspector Relationship Specialty Start Date End Date Sirena Eli APRN PCP - General Internal Medicine 07/04/[address] [place] [place] [address] documented as of this encounter
--- OUTSIDE RECORDS SUMMARY | 2022-08-26 01:47 | XMS_ITS | Encounter Summary ---
:1955 Author Organization [facility] [place] [address] Care Team Providers Name Role Phone SreedharSirena APRN Primary Care Provider Reason for Visit Reason Comments Follow-up Encounter Details Date Type Department Care Team Description 08/03/2021 Office Visit Dermatology at [facility], History of SCC (squamous cell carcinoma) of skin; Kristin BETHEA Seborrheic keratosis; [address] [facility] [place], [place] [id number] [phone] Social History Tobacco Use Types Packs/Day Years Used Date Never Smoker Smokeless Tobacco: Never Used Sex Assigned at Date Recorded Not on file documented as of this encounter Progress Notes Luke Myrick MD - 08/03/2021 10:15 AM EDT Problem: 1.?Visit for skin tag removal. 2. ??History of SCCA right chonchal bowl April 2003 3. History of BCC with infiltrative features left anterior thigh June 2021 Edwin follows today for treatment of some irritated tags present. He did present on his neck and intohis left arm and on his chest a total of 8 are noted. Assessment and plan: Acrochordons, irritated 1. After obtaining informed patient consent, the sites were anesthetized and then removed with electrodesiccation 2. Not submitted for pathologic analysis 3. Return to clinic here as needed for new lesions/concerns. CC: Sirena Eli APRN documented in this encounter Plan of Treatment Not on filedocumented as of this encounter Visit Diagnoses Diagnosis History of SCC (squamous cell carcinoma) of skin Personal history of other malignant neop lasm of skin Seborrheic keratosis Other seborrheic keratosis Inflamed acrochordon Unspecified hypertrophic and atrophic co ndition of skin documented in this encounter Care Teams Lab Animal Technician Relationship Specialty Start Date End Date Sirena Eli APRN PCP - General Internal Medicine 07/04/[address] [place] [address] documented as of this encounter
--- OUTSIDE RECORDS SUMMARY | 2022-08-26 01:48 | XMS_ITS | Encounter Summary ---
:1955 Author Organization [facility] [place] [address] Care Team Providers Name Role Phone Shannon Remy MD Primary Care Provider Encounter Details Date Type Department Care Team Description 11/21/2018 [place] [facility] [place] Mucous cyst of [address] [place] [address] Dr Govind MD [facility] [phone] [place] [phone] [place] [address] Social History Tobacco Use Types Packs/Day Years [...] mg by 0 Capsule, Sust. Release 24 mouth daily. hr predniSONE (DELTASONE) 20 Daily 0 10/10/2014 07/12/2021 mg Tablet documented as of this encounter Plan of Treatment Not on filedocumented as of this encounter Procedures Procedure Name Priority Date/Time Associated Diagnosis Comme nts XR HAND MIN 3 VIEWS Routine 11/21/2018 4:58 PM Mucous cyst of Results for this RIGHT EST finger procedure are i n the results section. documented in this encounter Results XR Hand Min 3 views Right (Generic) (11/21/2018 4:58 PM EST) Anatomical Region Laterality Modality Hand Right Digital Radiography Specimen (Source) Anatomical Location Collection Method / Collectio n Time Received Time / Laterality Volume Impressions 11/21/2018 5:26 PM EST Small well-defined lucency at the margin of the index DIP joint consistent with the clinically described cyst. A similar larger lucency at the middle f samuel proximal interphalangeal joint is also consistent with a cyst as is a less well-defined lucency at the third metacarpal head. Thank you for letting us participate in the care of this patient. For questions regarding this report, please contact e number below. ? Narrative 11/21/2018 5:26 PM EST EXAMINATION: XR HAND MIN 3 VIEWS RIGHT (GENERIC) CLINICAL HISTORY: right index finger cys t TECHNIQUE: 3 views RIGHT hand COMPARISON: None FINDINGS: There is a well-defined radiolucency wit h a sclerotic rim within the proximal aspect of the middle finger middle phala nx. There is no periostitis. The appearance is consistent with a cyst. At both the index finger and the middle finger metacarpal head, a small well defined foci of radiolucency is seen at the margin of the DIP joint and the metacarpophalangeal joint. In both cases the appearance is consistent with subchondral cyst formation. Elsewhere there is severe degenerative a rthropathy at the triscaphe joint and the first carpometacarpal joint. Less we ll-seen is degenerative arthropathy at the distal radioulnar joint. Procedure Note Avel Jones MD - 11/21/2018Forma tting of this note might be different from the original. EXAMINATION: XR HAND MIN 3 VIEWS RIGHT ( GENERIC) CLINICAL HISTORY: right index finger cys t TECHNIQUE: 3 views RIGHT hand COMPARISON: None FINDINGS: There is a well-defined radiolucency wit h a sclerotic rim within the proximal aspect of the middle finger middle phala nx. There is no periostitis. The appearance is consistent with a cyst. At both the index finger and the middle finger metacarpal head, a small well defined foci of radiolucency is seen at the margin of the DIP joint and the metacarpophalangeal joint. In both cases the appearance is consistent with subchondral cyst formation. Elsewhere there is severe degenerative a rthropathy at the triscaphe joint and the first carpometacarpal joint. Less we ll-seen is degenerative arthropathy at the distal radioulnar joint. IMPRESSION Small well-defined lucency at the margin of the index DIP joint consistent with the clinically described cyst. A similar larger lucency at the middle f samuel proximal interphalangeal joint is also consistent with a cyst as is a less well-defined lucency at the third metacarpal head. Thank you for letting us participate in the care of this patient. For questions regarding this report, please contact e number below. Cas Whitney MD IMG DX ORDERABLES documented in this encounter Visit Diagnoses Diagnosis Mucous cyst of finger Sebaceous cyst documented in this encounter Care Teams Smoke Jumper Relationship Specialty Start Date End Date Shannon Remy MD PCP - General General Internal Medicine 06/09/17 07/03/19 [address] [place] [address] documented as of this encounter
--- OUTSIDE RECORDS SUMMARY | 2022-08-26 01:48 | XMS_ITS | Encounter Summary ---
:1955 Author Organization [facility] [place] [address] Care Team Providers Name Role Phone Shannon Remy MD Primary Care Provider Reason for Visit Reason Comments Advice Only mucous cyst right index fing er Consultation (Routine) - Closed Specialty Diagnoses / Procedures Referred By Contact Refer red To Contact Plastic Surgery Diagnoses mucous cyst of finger Shannon Remy MD [facility] [address] [address] [place] [address] Referral ID Status Reason Start Date Expiration Date Visits V isits Requested Authorized [id number] Closed Consult, 06/09/2017 06/09/2018 1 1 [facility] Encounter Details Date Type Department Care Team Description 07/06/2017 Office Visit Plastic Surgery at [facility] s cyst of finger [facility] [place] Govind [facility] [address] [place] PLASTIC [place] [address] [place] [address] [phone] Social History Tobacco Use Types Packs/Day Years Used Date Never Smoker Smokeless Tobacco: Never Used Sex Assigned at Date Recorded Not on file documented as of this encounter Last Filed Vital Signs Vital Sign Reading Time Taken Comments Blood Pressure - - Pulse - - Temperature - - Respiratory Rate - - Oxygen Saturation - - Inhaled Oxygen Concentration - - Weight 102.1 kg (225 lb) 07/06/2017 2:06 PM EDT per pt Height 190.5 cm (6' 3) 07/06/2017 2:06 PM EDT per pt Body Mass Index 28.12 07/06/2017 2:06 PM EDT documented in this encounter Patient Instructions Patient InstructionsHazel Coffman RMA - 07/06/2017 2:15 PM EDT You were given written and verbal preoperative instructions today. To prepare for your upcoming surgery, please review the Pre-Operative Instruction brochure that was given to you. Remember to do the pre op wash, with Hibiclens soap, as instructed. 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 Feel free to call our office @ [phone] if you have any questions or concerns. We monitor the phonesfrom 8-5 Monday through Monday.Written and verbal preoperative instructions were given at this visit. Please review the written information prior to your procedure and contact us with any questions. Feel free to call our office at if you have any questions or concerns. We monitor the phones from 8-5 Monday - Monday. documented in this encounter Progress Notes Cas Whitney MD - 07/06/2017 2:15 PM EDT Plastic Surgery Hand Consultation Note I have been asked to see the patient by Shannon Remy MD CC: Mucous cyst of right index finger Hand Dominance: Right Workers Compensation: No Mechanism of Injury and HPI: Edwin Weiss is a 62 y.o. male who presents with a mass at the dorsal aspect of the PIP of the right index finger. He reports that a couple months ago he bumped the finger and once the scabbing fell away the bump remained. No past medical history on file. No past surgical history on file. Social History Social History ??? Marital status: Spouse name: N/A ??? Number of children: N/A ??? Years of education: N/A Occupational History ??? Not on file. Social History Main Topics ??? Smoking status: Never Smoker ??? Smokeless tobacco: Never Used ??? Alcohol use Not on file ??? Drug use: Not on file ??? Sexual activity: Not on file Other Topics Concern ??? Not on file Social History Narrative No Known Allergies Current Outpatient Prescriptions on File Prior to Visit Medication Sig Dispense Refill ??? simvastatin (ZOCOR) 40 mg Tablet TAKE ONE TABLET BY MOUTH EVERY DAY 3 ??? aspirin 325 mg Tablet Take 325 mg by mouth daily. ??? tamsulosin (FLOMAX) 0.4 mg Capsule, Sust. Release 24 hr Take 0.4 mg by mouth daily. No current facility-administered medications on file prior to visit. Examination: No acute distress Right Upper extremity: Hand: Thumb CMC joint with no subluxation, negative CMC Grind, no thenar/intrinsic atrophy, OA of index DIP, mass at dorsum of PIP c/w ganglion Cyst, no PIP extension lag, all fingers warm/pink/sensateto LT, no nail abnormality, no skin abnormality Impression: Edwin Weiss is a 62 y.o. male patient with a mucous cyst of his right index finger. I explained that the bump is likely a result of arthritis and increased production of fluid. We discussed multiple treatment options including steroid injection and surgical excision. Plan: Surgical scheduling for excision of cyst MNS Procedure: Excision of mucous cyst on right index finger Timeframe: Elective Time allotted: 60 minutes CPT : 91285 Follow up: 7-10 days IMily, am acting as scribe for Cas Palma MD . All work documented was performed by Cas Palma MD. ???I performed the above scribed service and agree with the accuracy of the note?? Cas Whitney MD. Hazel Coffman RMA - 07/06/2017 2:15 PM EDT Pre-Op Teaching for Surgery Surgery: Mucous cyst removal right index Written and verbal pre-operative instructions were given and reviewed with patient: Patient was advised to perform the pre-op scrub, and to coordinate a ride home following surgery. Smoking status and medications were further reviewed to rule out/address current use of Nicotine, Coumadin, Plavix. Patient was instructed to call the clinic at with any questions or concerns prior to surgery. documented in this encounter Plan of Treatment Not on filedocumented as of this encounter Visit Diagnoses Diagnosis Mucous cyst of finger Sebaceous cyst documented in this encounter Care Teams Analytics Intern Relationship Specialty Start Date End Date Shannon Remy MD PCP - General General Internal Medicine 06/09/17 07/03/[address] [place] [address] documented as of this encounter
--- OUTSIDE RECORDS SUMMARY | 2022-08-26 01:48 | XMS_ITS | Encounter Summary ---
:1955 Author Organization [facility] [place] [address] Care Team Providers Name Role Phone Sirena Eli APRN Primary Care Provider Reason for Visit Reason Comments Skin Check Consultation (Routine) - Closed Specialty Diagnoses / Procedures Referred By Contact Refer red To Contact Dermatology Diagnoses Other hypertrophic disorders of the skin Other seborrheic keratosis Hemangioma of skin and subcutaneous tissue Melanocytic nevi, unspecified Skin Tag, Seborrheic Keratosis, Peters Angioma, Numerous Moles, Sirena Eli, Luke Dalton MD Non-Healing Wound; Est. Patient-Notes Re ceived [address] [facility] Procedures Consult [place], [place] DERMATOLOGY [address] [place] [address] Fax: Referral ID Status Reason Start Date Expiration Date Visits V isits Requested Authorized [id number] Closed Consult, Test 03/02/2021 03/02/2022 6 6 & Treat PCP Updated and/or Approved Encounter Details Date Type Department Care Team Description 07/12/2021 Office Visit Dermatology at Luke Myrick, History of SCC (squamous cell carcinoma) of skin; Kristin BETHEA Seborrheic keratosis [address] [facility] Eren B DERMATOLOGY [place], [place] [address] [phone] Social History Tobacco Use Types Packs/Day Years Used Date Never Smoker Smokeless Tobacco: Never Used Sex Assigned at Date Recorded Not on file documented as of this encounter Progress Notes Luke Myrick MD - 07/12/2021 2:00 PM EDT Problem: 1. ?? New skin lesions of concern 2. 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 It has been present for a number of years but has not healed. He also has some tags like to have removed. Physical examination reveals an erythematous 2 cm crusting scabbing area on the left anterior thigh concerning for SCC versus BCCA. He has number of tags present on his arms and the base of his neck laterally left and right. 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 After obtaining informed consent site was anesthetized removed with shave C&D x3 2. After curettage site measured 2 cm in diameter. 3. Wound care instructions and supplies given Acrochordons, underarms and base of neck 1. Schedule a 15-minute appointment for removal of these in the near future. CC: Sirena Eli APRN ?? documented in this encounter Plan of Treatment Not on filedocumented as of this encounter Visit Diagnoses Diagnosis History of SCC (squamous cell carcinoma) of skin Personal history of other malignant neop lasm of skin Seborrheic keratosis Other seborrheic keratosis documented in this encounter Care Teams Oracle Bpm Developer Relationship Specialty Start Date End Date Sirena Eli APRN PCP - General Internal Medicine 07/04/[address] [place] [address] documented as of this encounter
--- OUTSIDE RECORDS SUMMARY | 2022-08-26 01:48 | XMS_ITS | Encounter Summary ---
:1955 Author Organization [facility] [place] [address] Care Team Providers Name Role Phone Shannon Remy MD Primary Care Provider Reason for Referral Diagnostic Test (Routine) - Closed Specialty Diagnoses / Procedures Referred By Contact Refer red To Contact Radiology Diagnoses Radiculopathy of cervical region Yao Rosales MD [facility] Rad Mri Procedures MRI Cervical Spine wo Contrast (Generic) [place] [address] [place] [address] Referral ID Status Reason Start Date Expiration Date Visits V isits Requested Authorized [id number] Closed Specialty 07/09/2018 07/09/2019 1 1 Service Requested Reason for Visit Diagnostic Test (Routine) - Closed Specialty Diagnoses / Procedures Referred By Contact Refer red To Contact Radiology Diagnoses Radiculopathy of cervical region Yao Rosales MD [facility] Rad Mri Procedures MRI Cervical Spine wo Contrast (Generic) [place] [address] [place] [address] Referral ID Status Reason Start Date Expiration Date Visits V isits Requested Authorized [id number] Closed Specialty 07/09/2018 07/09/2019 1 1 Service Requested Encounter Details Date Type Department Care Team Description 07/12/2018 Hospital Encounter MRI at [facility] Yao Rosales Radiculopathy of [facility] MD Tasha cervical region Drive [facility] [address] PAIN MEDICINE [phone] [place] [address] Social History Tobacco Use Types Packs/Day Years [...] Priority Date/Time Associated Diagnosis Comme nts MRI CERVICAL SPINE Routine 07/12/2018 7:46 AM Radiculopathy of Results for this WO CONTRAST EDT cervical region procedure ar e in the results section. documented in this encounter Results MRI Cervical Spine wo Contrast (Generic) (07/12/2018 7:46 AM EDT) Anatomical Region Laterality Modality C-spine Magnetic Resonance Specimen (Source) Anatomical Location Collection Method / Collectio n Time Received Time / Laterality Volume Impressions 07/12/2018 9:22 AM EDT 1. ??Severe spinal canal narrowing at C5-C6 and moderate spinal canal narrowing at C6-C7. 2. ??Severe bilateral neural foraminal n arrowing at C5-C6. 3. ??Severe right-sided neural foraminal narrowing at C6-C7. Narrative 07/12/2018 9:22 AM EDT EXAMINATION: MRI CERVICAL SPINE WO CONTRAST (GENERIC) CLINICAL HISTORY: cervical spine pain an d radicular arm pain TECHNIQUE: Cervical spine MRI without co ntrast. Routine radiculopathy protocol. COMPARISON: None FINDINGS: Alignment is near-anatomic. Mi ld disc degenerative changes most prominent at C5-C6. No aggressive marrow lesions. The cervical cord is of normal size and signal intensity. Following disc levels are outlined below : At C2-C3 canal and neural foramen are pa tent. At C3-C4 is a posterior disc osteophyte complex that mildly narrows the thecal sac. Uncovertebral and facet arthropathy severely narrow the left-sided neural foramen. Minimal right-sided neural fora holly narrowing. At C4-C5 is a right paracentral disc ext rusion that mildly indents the thecal sac. No significant neural foraminal clau rowing. At C5-C6 is severe spinal canal narrowin g because of a posterior disc osteophyte complex. Bilateral foraminal/far lateral disc herniations with uncovertebral and facet arthropathy severely narrow the bi lateral neural foramen. At C6-C7 is moderate canal narrowing bec ause of a posterior disc osteophyte complex. Right foraminal/far lateral dis c extrusion along with facet arthropathy severely narrows the right-sided foramen . Mild left-sided neural foraminal narrowing because of degenerative change . At C7-T1 no significant canal or neural foraminal narrowing. Procedure Note Josiah Motta MD - 07/12/2018Formatti ng of this note might be different from the original. EXAMINATION: MRI CERVICAL SPINE WO CONTR AST (GENERIC) CLINICAL HISTORY: cervical spine pain an d radicular arm pain TECHNIQUE: Cervical spine MRI without co ntrast. Routine radiculopathy protocol. COMPARISON: None FINDINGS: Alignment is near-anatomic. Mi ld disc degenerative changes most prominent at C5-C6. No aggressive marrow lesions. The cervical cord is of normal size and signal intensity. Following disc levels are outlined below : At C2-C3 canal and neural foramen are pa tent. At C3-C4 is a posterior disc osteophyte complex that mildly narrows the thecal sac. Uncovertebral and facet arthropathy severely narrow the left-sided neural foramen. Minimal right-sided neural fora holly narrowing. At C4-C5 is a right paracentral disc ext rusion that mildly indents the thecal sac. No significant neural foraminal clau rowing. At C5-C6 is severe spinal canal narrowin g because of a posterior disc osteophyte complex. Bilateral foraminal/far lateral disc herniations with uncovertebral and facet arthropathy severely narrow the bi lateral neural foramen. At C6-C7 is moderate canal narrowing bec ause of a posterior disc osteophyte complex. Right foraminal/far lateral dis c extrusion along with facet arthropathy severely narrows the right-sided foramen . Mild left-sided neural foraminal narrowing because of degenerative change . At C7-T1 no significant canal or neural foraminal narrowing. IMPRESSION 1. Severe spinal canal narrowing at C5-C 6 and moderate spinal canal narrowing at C6-C7. 2. Severe bilateral neural foraminal clau rowing at C5-C6. 3. Severe right-sided neural foraminal n arrowing at C6-C7. Yao Rosales MD IMG MRI ORDERABLES documented in this encounter Visit Diagnoses Diagnosis Radiculopathy of cervical region Brachial neuritis or radiculitis nos documented in this encounter Care Teams Rubber Cutting Machine Tender Relationship Specialty Start Date End Date Shannon Remy MD PCP - General General Internal Medicine 06/09/17 07/03/[address] [place] [address] documented as of this encounter
--- OUTSIDE RECORDS SUMMARY | 2022-08-26 01:48 | XMS_ITS | Encounter Summary ---
:1955 Author Organization [facility] [place] [address] Care Team Providers Name Role Phone Julius Antonio MD Primary Care Provider [phone] Encounter Details Date Type Department Care Team Description 01/07/2015 Orders Only Functional Hinduism Eric Beavers MD Program at [facility] [address] [place] [address] [place], [place] [id number] [phone] (Wo rk) Social History Tobacco Use Types Packs/Day Years Used Date Never Assessed Sex Assigned at Date Recorded Not on file documented as of this encounter Plan of Treatment Not on filedocumented as of this encounter Procedures Procedure Name Priority Date/Time Associated Diagnosis Comme nts FILM LIBRARY Routine 01/07/2015 11:55 AM Results for this STORAGE ONLY MR EDT procedure ar e in SPINE the results section. documented in this encounter Results Film Library- Storage only MR Spine (01/07/2015 11:55 AM EDT) Anatomical Region Laterality Modality Other Specimen (Source) Anatomical Collection Method Collection Time Re ceived Time Location / / Volume Laterality 01/07/2015 11:55 AM EDT Narrative 02/23/2015 12:03 PM EDT This is a Non-reportable exam Procedure Note INDER, UNSIGNED REPORT - 02/23/2015Formatt ing of this note might be different from the original. This is a Non-reportable exam Raymond Beavers MD IMG FILM LIBRARY ORDERABLES documented in this encounter Visit Diagnoses Not on filedocumented in this encounter Care Teams Low Pressure Kettle Operator Relationship Specialty Start Date End Date Julius Antonio MD PCP - General 09/21/10 04/03/[address] [place] [address] documented as of this encounter
--- OUTSIDE RECORDS SUMMARY | 2022-08-26 01:48 | XMS_ITS | Encounter Summary ---
:1955 Author Organization [facility] [place] [address] Care Team Providers Name Role Phone Sirena Eli APRN Primary Care Provider Encounter Details Date Type Department Care Team Description 07/03/2019 External Results Medical Records Provider, [place] [address] Social History Tobacco Use Types Packs/Day Years Used Date Never Smoker Smokeless Tobacco: Never Used Sex Assigned at Date Recorded Not on file documented as of this encounter Plan of Treatment Not on filedocumented as of this encounter Procedures Procedure Name Priority Date/Time Associated Diagnosis Comme nts SURGICAL PATHOLOGY Routine 07/03/2019 Results f or this SCAN procedure are i n the results section . documented in this encounter Results Scan Doc: Surgical Pathology (07/03/2019) Narrative This result has an attachment that is no t available. Historical Provider MD HANKINS MGR SCAN EXT ORDR/RSLT documented in this encounter Visit Diagnoses Not on filedocumented in this encounter Care Teams Wood Strip Block Floor Installer Relationship Specialty Start Date End Date Sirena Eli APRN PCP - General Internal Medicine 07/04/[address] [place] [id number] documented as of this encounter
--- OUTSIDE RECORDS SUMMARY | 2022-08-26 01:48 | XMS_ITS | Encounter Summary ---
:1955 Author Organization [facility] [place] [address] Care Team Providers Name Role Phone Shannon Remy MD Primary Care Provider Reason for Visit Reason Comments Follow Up Surgery right index mass removal Encounter Details Date Type Department Care Team Description 01/09/2019 Office Visit Plastic Surgery at [facility] s cyst of finger Heater Kostas Faust MD [address] [place] [address] PLASTIC SURGERY [phone] [place] [id number] Social History Tobacco Use Types Packs/Day Years Used Date Never Smoker Smokeless Tobacco: Never Used Sex Assigned at Date Recorded Not on file documented as of this encounter Progress Notes Cas Whitney MD - 01/09/2019 2:15 PM EDT Plastic Surgery Post Op Note Reason for visit: F/U status post procedure Date of surgery: 12/27/18 Procedure(s): Right index finger cyst excision Complications: None reported Date of surgery: 07/27/17 ??Procedure(s): Excision mucous cyst, right index finger Complications: None reported HPI: Pt reports he has been well. Examination: Patient is alert, conversant, comfortable, ambulating Incision: CDI, healing well. No collection, no erythema, no evidence of cellulitis. Mild finger swelling, ROM intact, no sign of recurrence Impression: Edwin Weiss is a 63 y.o. male who was seen today for follow-up after the above procedure. Please see the operative note for details. He is doing well without complaints. Plan: Follow up with recurrent symptoms Light use of finger another 2 weeks I, Amanda Cardona, have performed the documentation for this encounter in the presence of and acting as a scribe for Dr. Whitney. I performed the services which were documented by the scribe, and I agree with the accuracy of the documentation in this encounter. Cas Whitney MD documented in this encounter Plan of Treatment Not on filedocumented as of this encounter Visit Diagnoses Diagnosis Mucous cyst of finger Sebaceous cyst documented in this encounter Care Teams Head Of Art Relationship Specialty Start Date End Date Shannon Remy MD PCP - General General Internal Medicine 06/09/17 07/03/[address] [place] [address] documented as of this encounter
--- OUTSIDE RECORDS SUMMARY | 2022-08-26 01:48 | XMS_ITS | Encounter Summary ---
:1955 Author Organization [facility] [place] [address] Care Team Providers Name Role Phone Julius Antonio MD Primary Care Provider [phone] Reason for Visit Reason Comments Neck Pain Encounter Details Date Type Department Care Team Description 04/03/2015 Office Visit Spine [facility] at [facility] Cabrera Radiculo pathy [facility] PT cervical region [facility] [place] [address] Social History Tobacco Use Types Packs/Day Years Used Date Never Smoker Smokeless Tobacco: Never Used Sex Assigned at Date Recorded Not on file documented as of this encounter Progress Notes Collette Cabrera, PT - 04/03/2015 3:07 PM EDT Spine Center Physical Therapy Note Referring provider: Raymond Beavers M.D. Diagnosis: 1. Radiculopathy of cervical region 2. 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 Weiss reports in general his distal symptoms of present less frequently. Mr. Weiss currently complains of neck pain with intermittent radiation into the right shoulder and scapulaand it intermittently to the right elbow. There is intermittent numbness and tingling in the dorsum of the right hand including digits 1 through 4, but no weakness. Symptoms worsen when looking down, looking up, turning, side bending to the right, and lying on the right side. Symptoms ease when lying on the left side, sitting reclined, or lying in the supine position. The pain is usually at its leastin the morning and then worsens by noon and remains relatively stable throughout the remainder of the day. Sleep continues to be occasionally disturbed due to the pain, but less so than in the past. Objective: Mr. Weiss returns today for a scheduled follow up appointment. He 's about in the examroom without difficulty and appears comfortable while seated. Sitting and standing posture is good. Active range of motion of the cervical spine is limited to 50?? flexion, 40?? extension, 60?? right rotation, 60?? left rotation, 35?? right sidebending, and 35?? left sidebending. End range extension, bilateral rotation, and right sidebending worsens the pain. Repeated movement testing of the cervicalspine did seem to suggest a directional preference toward retraction. Treatment Received: Discussed the natural history of neck and arm pain in the context of underlying degenerative changes and the rational for exercise based treatment. Patient Education/ Home Exercise Program: Reviewed and modified Mr. Weiss 's home exercise program. The home exercise program now includes cervical retraction with or without overpressure followed by extension 6-8 times per day. He will continue to use cervical left sidebending or cervical flexion combined with left rotation as needed throughout the day to relieve his symptoms. Assessment: Mr. Weiss's symptoms are improving and he is now ready to progress the home exercise program. Goals: 1. Independent with home exercise program 2. Able to sit without discomfort 3. Able to turn without discomfort 4. Able to look up without discomfort Plan: Follow up in 1 week to reassess and progress the home exercise program. Mr. Weiss was encouraged to call with any questions or concerns regarding todays visit or the home exercise program. Length of visit: A total of 20 minutes was spent re-assessing, treating, and instructing Edwin Weiss in a home exercise program. documented in this encounter Plan of Treatment Not on filedocumented as of this encounter Visit Diagnoses Diagnosis Radiculopathy of cervical region Brachial neuritis or radiculitis nos documented in this encounter Care Teams Supervisor [employer] Relationship Specialty Start Date End Date Julius Antonio MD PCP - General 09/21/10 04/03/[address] [place] [address] documented as of this encounter
--- OUTSIDE RECORDS SUMMARY | 2022-08-26 01:48 | XMS_ITS | Encounter Summary ---
:1955 Author Organization [facility] [place] [address] Care Team Providers Name Role Phone Julius Olmedo MD Primary Care Provider [phone] Reason for Visit Reason Comments Back Pain Right Shoulder Pain Encounter Details Date Type Department Care Team Description 03/03/2015 Procedure visit Pain Management at Aram Pillai V, Radi culopathy of [facility] DO cervical region Counts include 234 beds at the [facility] [address] [place], [place] [phone] [facility] Social History Tobacco Use Types Packs/Day Years Used Date Never Smoker Smokeless Tobacco: Never Used Sex Assigned at Date Recorded Not on file documented as of this encounter Last Filed Vital Signs Vital Sign Reading Time Taken Comments Blood Pressure 140/95 03/03/2015 10:45 AM EDT Pulse 71 03/03/2015 10:45 AM EDT Temperature - - Respiratory Rate 20 03/03/2015 10:45 AM EDT Oxygen Saturation 96% 03/03/2015 10:45 AM EDT Inhaled Oxygen Concentration - - Weight 104.3 kg (230 lb) 03/03/2015 10:28 AM EDT Height 193 cm (6' 4) 03/03/2015 10:28 AM EDT Body Mass Index 28 03/03/2015 10:28 AM EDT documented in this encounter Patient Instructions Patient Ofelia Bullock LPN - 03/03/2015 10:30 AM EDT Pain Management Center Discharge Instructions: You were seen by Dr. Aram Pillai DO who performed cervical epidural steroid injection. It is normal that the injection site will be sore for up to 48 hours. You may also experience mild stiffness in the joint near the injection site. [x] You may resume your normal activities: tomorrow. You may shower today. DO NOT tub bathe, use whirlpools, hot tubs or pool therapy for 2 days. Remove Band-Aid(s) later today/tomorrow. Do not drive until tomorrow. Use caution walking/climbing stairs as you may be unsteady on your feet. You may use your usual medications, including pain medications, as directed, unless otherwise instructed. You may use an ice pack as needed for the first 24 hours, on for 20 minutes then off for 20 minutes.Do not apply heat today. Attempt to empty your bladder 4-6 hours after your procedure. You received the following medications: Lidocaine, Omnipaque (contrast dye) and Dexamethasone SodiumPhosphate 10 mg. During regular business hours, please phone the Pain Management Center at for appointments or with any questions or if the following or other troubling symptoms develop: 1) Prolonged dizziness or weakness (more than 1 day). 2) Localized swelling, redness or drainage at the injection site(s). 3) Temperature of 101 degrees that lasts for more than 4 hours. After 5 PM or on weekends, call and ask for Pain Clinic provider on-call. If you are unable to reach the Pain Management Center and have a complication, please call your Primary Care Provider or proceed to your local emergency department. Ofelia Hammonds LPN documented in this encounter Progress Notes Ofelia Hammonds LPN - 03/03/2015 10:29 AM EDT Pre-Procedure Screening Questions: 1. Status: No 2. Patient states they have a company driver to transport after procedure? Yes 3. Patient taking antibiotics at present? No 4. NPO per Pain Management Center protocol? Yes 5. Patient diabetic: No 6. Patient routinely taking anticoagulants ? No Anticoagulant: Date Stopped: Current INR: Patient Vital Signs documented in Doc Flowsheets associated with this encounter. Patient Discharge Instructions were reviewed with patient and copy provided to patient. documented in this encounter Procedure Notes Aram Pillai DO - 03/03/2015 10:52 AM EDTAssociated Order(s): EPIDURAL STEROID INJECTION Procedure(s): EPIDURAL STEROID INJECTION Pre-Procedure Diagnose(s): Radiculopathy of cervical region Procedure Note Cervical Interlaminar Epidural Steroid Injection Date of Service: 03/03/2015 Patient: Edwin Weiss Provider: Aram Camarillo DO Edwin Weiss has been referred to the Pain Management Center for cervical epidural steroid injection. Mr. Weiss was interviewed and the medical record were reviewed. There were no medical, pharmacologic, radiographic or other structural contraindications to attempting fluoroscopically guided cervical interlaminar epidural steroid injection. Risks, potential side effects, indications, and potential benefits of the procedure were reviewed with Mr. Weiss. Questions and concernswere addressed. After it was clear that the patient was fully informed about the procedure, the printed consent form was signed by the patient and myself. A standard time-out procedure was performed. The patient was placed in the prone position on the fluoroscopy table and automated blood pressure cuff as well as pulse oximeter was applied. The skin entry point for entering the epidural space by a midline C7-T1 interlaminar approach was identified under fluoroscopy and marked. The skin entry pointwas thoroughly cleaned with Chlorhexadine preparation and the skin was draped. Next a mixture of 9ccof 1% lidocaine mixed with 1cc of Sodium Bicarbonate was infiltrated into the area of the planned skin entry point and underlying subcutaneous tissues. Next an 18 gauge Tuohy needle was placed under flu oroscopic guidance and with loss of resistance technique into the epidural space utilizing multiple AP and 55 degree contralateral fluoroscopic views. Upon correct needle placement and loss of resistance, there were no paresthesiae or return of blood or CSF through the needle. Next 2cc of preservative-free Omnipaque 240 was injected with clear epidural spread in the A/P and oblique views. Next, a solution of 10mg of preservative-free Dexamethasone mixed with 1ml of preservative-free normal saline was injected through with no unusual discomfort expressed by Mr. Weiss. Mr. Weiss's vital signs were stable throughout the procedure and were as recorded in the docflowsheet by the nursing staff. If given, dosages of intravenous drugs for anxiolysis and analgesia were documented in MAR. Follow up plans and appointments were discussed with the Mr. Weiss. Post procedure instruction was given as documented in nursing documentation and having met discharge criteria, he was discharged from the Pain Management Center. COMMENTS: Follow up with Dr. Beavers in 3 weeks. ARAM PILLAI DO, MPH ABPMR-subspecialty board certification in Pain Medicine Attending Physician-Pain Management CC: Raymond Beavers MD [facility] [place] [address] JULIUS OLMEDO MD [address] [place] [id number] documented in this encounter Plan of Treatment Not on filedocumented as of this encounter Procedures Procedure Name Priority Date/Time Associated Diagnosis Comme nts FILM LIBRARY Routine 03/03/2015 11:04 Results for this STORAGE ONLY PAIN AM EDT procedure are in CLINIC C ARM the results section. EPIDURAL STEROID Routine 03/03/2015 10:53 Radiculopathy of Res ults for this INJECTION AM EDT cervical region procedure ar e in the results section. documented in this encounter Results Film Library-storage only pain clinic C-arm (03/03/2015 11:04 AM EDT) Anatomical Region Laterality Modality Other Specimen (Source) Anatomical Collection Method Collection Time Re ceived Time Location / / Volume Laterality 03/03/2015 11:04 AM EDT Narrative 03/03/2015 11:04 AM EDT This is a Non-reportable exam Procedure Note INDER, UNSIGNED REPORT - 03/03/2015Formatt ing of this note might be different from the original. This is a Non-reportable exam Aram Camarillo DO IMG FILM LIBRARY ORDERABLES EPIDURAL STEROID INJECTION (03/03/2015 10:53 AM EDT) Narrative Aram Pillai DO - 03/03/2015 10:53 AM EDT Aram Pillai DO ? 03/03/2015 10:53 AM Procedure Note Cervical Interlaminar Epidural Steroid I njection Date of Service: ??03/03/2015 Patient: ??Edwin Weiss ?? MRN: ??[id number] Provider: ??Aram Pillai V, DO ?? Edwin Weiss has been referred to the Pain Management Center for cervical epidural steroid injection. ?? Mr. Weiss was interviewed and the [facility] record were reviewed. ??There were no medical, pharm acologic, radiographic or other structural contraindications to at tempting fluoroscopically guided cervical interlaminar epidural st eroid injection. ??Risks, potential side effects, indications, and potential benefits of the procedure were reviewed with Mr. Margarito luong. ??Questions and concernswere addressed. ??After it was c lear that the patient was fully informed about the procedure, the printed consent form was signed by the patient and myself. ??A andard time-out procedure was performed. The patient was placed in the prone posi tion on the fluoroscopy table and automated blood pressure cuff as well as pulse oximeter was applied. ??The skin entry point for entering the epidural space by a midline C7-T1 interlaminar ap proach was identified under fluoroscopy and marked. ??The skin entry point was thoroughly cleaned with Chlorhexadine pr eparation and the skin was draped. ??Next a mixture of 9cc of 1 % lidocaine mixed with 1cc of Sodium Bicarbonate was infiltrated in to the area of the planned skin entry point and underlying subcutaneous tissues. ?? Next an 18 gauge Tuohy needle was placed under fluoroscopic guidance and with loss of resistance ashley hnique into the epidural space utilizing multiple AP and 55 degre e contralateral fluoroscopic views. ??Upon correct needl e placement and loss of resistance, there were no paresthesiae o r return of blood or CSF through the needle. Next 2cc of preserva tive-free Omnipaque 240 was injected with clear epidural spread in the A/P and oblique views. Next, a solution of 10mg of prese rvative-free Dexamethasone mixed with 1ml of preserva tive-free normal saline was injected through with no unusual dis comfort expressed by Mr. Weiss. Mr. Weiss's vital signs were stable t hroughout the procedure and were as recorded in the docflowsheet by the nursing staff. ?? If given, dosages of intravenous drugs f or anxiolysis and analgesia were documented in MAR. Follow up plans and appointments were di scussed with the Mr. Weiss. ??Post procedure instruction w as given as documented in nursing documentation and having met dis charge criteria, he was discharged from the Pain Management Cent er. COMMENTS: Follow up with Dr. Beavers in 3 weeks. ARAM PILLAI DO, MPH ABPMR-subspecialty board certification i n Pain Medicine Attending Physician-Pain Management CC: Raymond Beavers MD [facility] [place] [address] JULIUS OLMEDO MD [address] [place] [address] Aram Camarillo DO NEUROLOGY ORDERABLES documented in this encounter Visit Diagnoses Diagnosis Radiculopathy of cervical region Brachial neuritis or radiculitis nos documented in this encounter Administered Medications Inactive Administered Medications - up to 3 most recent administrations Medication Order MAR Action Action Date Dose Rate Site dexamethasone sodium (PF) Given 03/03/2015 11:15 AM EDT 10 mg injection 10 mg 10 mg, Epidural, ONCE, 1 dose, On Tu03/03/15 at 1115, Routine iohexol (OMNIPAQUE) 240 mg/mL solution 1 mL Given 03/03/2015 11:15 AM EDT 1 mL 1 mL, Epidural, ONCE, 1 dose, On Tu03/03/15 at 1115, Wasted 49 ml, Routine documented in this encounter Care Teams Black Off Worker Relationship Specialty Start Date End Date Julius Olmedo MD PCP - General 09/21/10 04/03/17 [address] [place], [place] [address] documented as of this encounter
--- OUTSIDE RECORDS SUMMARY | 2022-08-26 01:48 | XMS_ITS | Encounter Summary ---
:1955 Author Organization [facility] [place] [address] Care Team Providers Name Role Phone Shannon Remy MD Primary Care Provider Encounter Details Date Type Department Care Team Description 07/09/2018 Orders Only Pain Management at Yao Rosales Rad iculopathy [facility] MD cervical region [facility] (Pr imary Dx) Drive [place], [place] PAIN MEDICINE [address] [place] [address] [phone] Social History Tobacco Use Types Packs/Day Years Used Date Never Smoker Smokeless Tobacco: Never Used Sex Assigned at Date Recorded Not on file documented as of this encounter Plan of Treatment Not on filedocumented as of this encounter Visit Diagnoses Diagnosis Radiculopathy of cervical region - Prima ry Brachial neuritis or radiculitis nos documented in this encounter Care Teams Guest Advisor Relationship Specialty Start Date End Date Shannon Remy MD PCP - General General Internal Medicine 06/09/17 07/03/[address] [place] [address] documented as of this encounter
--- OUTSIDE RECORDS SUMMARY | 2022-08-26 01:48 | XMS_ITS | Encounter Summary ---
:1955 Author Organization [facility] [place] [address] Care Team Providers Name Role Phone Shannon Remy MD Primary Care Provider Reason for Visit Reason Comments Follow-up Encounter Details Date Type Department Care Team Description 07/02/2019 Office Visit Dermatology at [facility], History of SCC (squamous cell carcinoma) of skin; Kristin BETHEA Verruca vulgaris; [address] Seborrheic keratosis Eren B DERMATOLOG[facility] [place], [place] [id number] [phone] Social History Tobacco Use Types Packs/Day Years Used Date Never Smoker Smokeless Tobacco: Never Used Sex Assigned at Date Recorded Not on file documented as of this encounter Progress Notes Luke Myrick MD - 07/02/2019 4:30 PM EDT Problem: 1. New lesions of concern 2. 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 He was treated x4 by Dr. Remy. Examination was a pleasant 64-year-old gentleman who has a fleshy to tone papule on the right parietal scalp, he has a small seborrheic keratosis on the right lateral cheek, and he has a verrucous papule 111 mm in length on the right lateral index finger. He is well tanned. Assessment plan: Growing nevus x1 year, right parietal scalp 1. After obtaining informed consent site was anesthetized and removed with shave biopsy and electro desiccated 2. Triple antibiotic ointment placed 3. Wound care instructions and supplies given 4. We will notify patient of his biopsy results in 1 week. Benign seborrheic keratosis right lateral cheek 1. Patient reassured Verruca vulgaris right index finger lateral 1. LN 2 x 2 applied aggressively to site 2. Patient admitted this was a more vigorous freezing then he experienced previously 3. Return to clinic in 3 weeks for repeat check. Hold in reserve the option of bleomycin injections CC: Shannon Remy MD documented in this encounter Plan of Treatment Not on filedocumented as of this encounter Visit Diagnoses Diagnosis History of SCC (squamous cell carcinoma) of skin Personal history of other malignant neop lasm of skin Verruca vulgaris Viral warts, unspecified Seborrheic keratosis Other seborrheic keratosis documented in this encounter Care Teams Harvesting Manager Relationship Specialty Start Date End Date Shannon Remy MD PCP - General General Internal Medicine 06/09/17 07/03/[address] [place] [address] documented as of this encounter
--- OUTSIDE RECORDS SUMMARY | 2022-08-26 01:48 | XMS_ITS | Encounter Summary ---
:1955 Author Organization [facility] [place] [address] Care Team Providers Name Role Phone Shannon Remy MD Primary Care Provider Reason for Referral Surgical (Routine) - Specialty Diagnoses / Procedures Referred By Contact Refer red To Contact Plastic Surgery Diagnoses Mucous cyst of finger Cas Whitney MD [facility] Plastics Procedures Excision digital mucous cyst [facility] [place] [address] [place] [address] Referral ID Status Reason Start Date Expiration Date Visits V isits Requested Authorized [id number] Consult, 12/27/2018 12/27/2019 1 1 Test & Treat Reason for Visit Reason Comments Procedure right index finger cyst exci lb Surgical (Routine) - Closed Specialty Diagnoses / Procedures Referred By Contact Refer red To Contact Plastic Surgery Diagnoses right index finger cyst excision, CPT 54655 Self Cas Whitney MD [facility] PLASTIC SURGERY [place], [place] [address] Phone: Fax: Referral ID Status Reason Start Date Expiration Date Visits Requ ested Visits Authorized [id number] Closed 11/21/2018 11/21/2019 1 1 Encounter Details Date Type Department Care Team Description 12/27/2018 Procedure visit Plastic Surgery at Cas Whitney cous cyst of finger [facility] [place] Govind [facility] [address] [place], [place] PLASTIC SURGERY [address] [place] [address] [phone] Social History Tobacco Use Types Packs/Day Years Used Date Never Smoker Smokeless Tobacco: Never Used Sex Assigned at Date Recorded Not on file documented as of this encounter Patient Instructions Patient InstructionsVoight-Sabino Hazel M, Ziyad - 12/27/2018 3:00 PM EST The healing process is different for each person / and or procedure. You can expect some discomfort. There will also be swelling and possible bruising that will subside in the next few days or weeks. Note that your pain, swelling, bruising and drainage are directly related to activity. Dressing: Keep your incision/dressing dry 2 days. You may shower after this time, but do not soak in a pool or bath until completely healed. Sutures: Your sutures are absorbable and do not need to be removed. Spitting Sutures : Occasionally an area of redness & tenderness develops where a dissolving stitch becomes irritated & pushed to the surface. This stitch is clear or white & looks like fishline. If it occurs, it is not an emergency. You may clip the stitch or call the clinic for an appointment with the nurse. If bleeding occurs which soaks through the outside bandage, apply firm, direct pressure with your hand over the bandage for 15 minutes. Activity Restrictions: To minimize swelling,pain, & bleeding follow these instructions: Hand Surgery: Keep the affected hand elevated above the heart for the next 2-7 days. Do not lift with or strain the hand. Do not wash dishes or soak in a tub of water. Medication: Take regular or extra strength Tylenol as directed. Avoid Ibuprofen and Aspirin for 48 hours. Problems to report to your doctor: . A Temperature over 100 F or 38 C. . Excessive redness or warmth spreading away from the incision line after the first 48 hours. . Thick, yellow, foul smelling drainage larger than a dime from the incision or drain site. . Increased pain that is not relieved by you pain medicine. Contact Your Doctor: . During Office Hours: Monday through Monday from 8am - 5pm Call . On weekends or after office hours:Call and ask the test operator to page the plastic surgeon information technology intern. . Prescription Line: Call the line at from 8am-4pm Monday through Monday. documented in this encounter Procedure Notes Cas Whitney MD - 12/27/2018 3:00 PM ESTAssociated Order(s): EXCISION OF DIGITAL MUCOUS CYST Pre-Procedure Diagnose(s): Mucous cyst of finger Consent: Written from patient after discussion of risks and benefits. I have reviewed the risks, benefits and alternatives to the surgical management of excision of lesion including infection, bleeding, recurrence, nerve injury, identification of malignancy need for treatment with steroids and scar revision. All issues were discussed and the patients understanding this wishes to proceed. ?? Physicians: Cas Whitney M.D. Anesthesia: Local with lidocaine 1% with epi in digital block Description: After anesthesia was provided, the site was prepped and draped in sterile fashion. A finger tourniquet was placed. A curvilinear incision over the dorsum of the PIP joint was re-insiced and the underlying cyst dissected free form the skin, the mass was adherent to the extensor tenosynovium and once released release a mucinous clear fluid c/w joint fluid. The finger tourniquet was released, hemostasis obtained with bipolar and the skin closed with 4-0 chromic sutures and a sterile dressing applied. Specimens: none Complications: none immediate EBL: 3 cc Disposition: Pt. tolerated the procedure well. After the procedure, the patient was discharged home. Hazel Coffman RMA - 12/27/2018 3:00 PM EST Plastic Surgery Minor Worksheet Surgery: right index finger mass removal Skin Prep: Chlorhaprep Cautery Unit: MNS 1 [id number] Settings: Coa Cuttin Tornicot Site: Right index Xylocaine Plain: 8.0 cc Prescription: none Post op instructions: See AVS documented in this encounter Plan of Treatment Not on filedocumented as of this encounter Procedures Procedure Name Priority Date/Time Associated Diagnosis Comme nts EXCISION OF DIGITAL Routine 12/27/2018 3:00 PM Mucous cyst of Results for this MUCOUS CYST EST finger procedure are i n the results section. documented in this encounter Results Excision digital mucous cyst (12/27/2018 3:00 PM EST) Narrative Cas Whitney MD - 12/27/2018 3:00 PM EST Cas Whitney MD ? 01/01/2019 ??9:30 AM Consent: Written from patient after disc ussion of risks and benefits. I have reviewed the risks, benefits and alternatives to the surgical management of excision of lesio n including infection, bleeding, recurrence, nerve injury, iden tification of malignancy need for treatment with steroids and sca r revision. All issues were discussed and the patients understa nding this wishes to proceed. ?? Physicians: Cas Whitney M.D. Anesthesia: Local with lidocaine 1% with epi in digital block Description: After anesthesia was provid ed, the site was prepped and draped in sterile fashion. ??A finge r tourniquet was placed. ?? A curvilinear incision over the dorsum o f the PIP joint was re-insiced and the underlying cyst disse cted free form the skin, the mass was adherent to the extensor te nosynovium and once released release a mucinous clear fluid c/w joint fluid. ??The finger tourniquet was released, hemostas is obtained with bipolar and the skin closed with 4-0 chromic sut ures and a sterile dressing applied. Specimens: none Complications: none immediate EBL: 3 cc Disposition: Pt. tolerated the procedure well. After the procedure, the patient was discharged ho la. Cas Whitney MD PROCEDURE/MINOR SURGICAL ORD ERABLES documented in this encounter Visit Diagnoses Diagnosis Mucous cyst of finger Sebaceous cyst documented in this encounter Care Teams Waiter/Waitress First Class Relationship Specialty Start Date End Date Shannon Remy MD PCP - General General Internal Medicine 06/09/17 07/03/[address] [place] [address] documented as of this encounter
--- OUTSIDE RECORDS SUMMARY | 2022-08-26 01:48 | XMS_ITS | Encounter Summary ---
:1955 [place] [address] Care Team Providers Name Role Phone Julius Antonio MD Primary Care Provider Encounter Details Date Type Department Care Team Description 11/12/2015 Office Visit Pain Management at [facility] Josiah Crenshaw DO [facility] [place] [address] PAIN CLINIC [phone] [place], [place] [address] (Wo rk) Social History Tobacco Use Types Packs/Day Years Used Date Never Smoker Smokeless Tobacco: Never Used Sex Assigned at Date Recorded Not on file documented as of this encounter Plan of Treatment Not on filedocumented as of this encounter Procedures Procedure Name Priority Date/Time Associated Diagnosis Comme nts FILM LIBRARY Routine 11/13/2015 3:00 PM Pain Results f or this STORAGE ONLY PAIN EST procedure are in CLINIC C ARM the results section. documented in this encounter Results Film Library-storage only pain clinic C-arm (11/13/2015 3:00 PM EST) Specimen (Source) Anatomical Location Collection Method / Collectio n Time Received Time / Laterality Volume Narrative RAD - 11/13/2015 3:00 PM EST See PACS for result report. Josiah Camarillo DO G FILM LIBRARY ORDERABLES Performing Organization Address City/State/ZIP Code Phon e Number [place], [place] documented in this encounter Visit Diagnoses Diagnosis Pain Generalized pain documented in this encounter Care Teams Elementary Librarian Relationship Specialty Start Date End Date Julius Antonio MD PCP - General 09/21/10 04/03/[address] [place] [address] documented as of this encounter
--- OUTSIDE RECORDS SUMMARY | 2022-08-26 01:48 | XMS_ITS | Encounter Summary ---
:1955 Author Organization [facility] Address [place] [id number] Care Team Providers Name Role Phone Sirena Eli APRN Primary Care Provider Reason for Visit Reason Comments Follow-up Consultation (Routine) - Specialty Diagnoses / Procedures Referred By Contact Refer red To Contact Dermatology Diagnoses Disorder of the skin and subcutaneous tissue, unspecified Facial Lesion Sirena Eli APRN Hammer, Charles J, MD Procedures Consult [address] [place], [place] DERMATOLOGY [address] [place] [address] Fax: Referral ID Status Reason Start Date Expiration Date Visits V isits Requested Authorized [id number] 05/01/2019 04/30/2020 1 1 Encounter Details Date Type Department Care Team Description 07/25/2019 Office Visit Dermatology at [facility], History of SCC (squamous cell carcinoma) of skin; Kristin BETHEA Verruca vulgaris; [address] [facility] Seborrheic keratosis Eren B DERMATOLOGY [place], [place] [id number] [phone] Social History Tobacco Use Types Packs/Day Years Used Date Never Smoker Smokeless Tobacco: Never Used Sex Assigned at Date Recorded Not on file documented as of this encounter Progress Notes Luke Myrick MD - 07/25/2019 3:00 PM EDT Problem: 1. Follow-up verruca vulgaris 2. 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 What not to be a hemangioma of his right parietal scalp, is healing well. Physical examination reveals a pleasant 64-year-old gentleman who has a minimal crust scab remainingat the hemangioma biopsy site on his right parietal scalp, and has some crust scab still present also at the right lateral index finger. It is difficult to rule in or rule out residual verruca. Assessment plan: Verruca vulgaris right lateral index finger 1. Today no treatment given 2. Instead recommend that I see him again in another 3 weeks for repeat check. 3. May cancel his appointment if it has healed without residual verruca. 4. Hold in reserve the option of bleomycin injections CC: Shannon Remy MD documented in this encounter Plan of Treatment Not on filedocumented as of this encounter Visit Diagnoses Diagnosis History of SCC (squamous cell carcinoma) of skin Personal history of other malignant neop lasm of skin Verruca vulgaris Viral warts, unspecified Seborrheic keratosis Other seborrheic keratosis documented in this encounter Care Teams Hose Wrapper Relationship Specialty Start Date End Date Sirena Eli APRN PCP - General Internal Medicine 07/04/[address] [place] [address] documented as of this encounter
--- OUTSIDE RECORDS SUMMARY | 2022-08-26 01:48 | XMS_ITS | Encounter Summary ---
:1955 Author Organization [facility] [place] [address] Care Team Providers Name Role Phone Julius Antonio MD Primary Care Provider [phone] Encounter Details Date Type Department Care Team Description 10/21/2015 Telephone Pain Management at [facility] [place] [address] Social History Tobacco Use Types Packs/Day Years Used Date Never Smoker Smokeless Tobacco: Never Used Sex Assigned at Date Recorded Not on file documented as of this encounter Miscellaneous Notes Telephone Encounter - Jamarcus Puentes LPN - 10/21/2015 10:08 AM EST Fluoroscopy Procedure Request Procedure Requested: Neither cervical epidural steroid injection Date(s) of Last Procedure: 03-03-15 Did requested procedure relieve pain? _x__ Yes - For how long 5.5months? 90 % of relief received from previous injection. Have you had any steroid injections anywhere in your body within the last two weeks? no Patient taking anticoagulants? _x__ No Patient has pacemaker/defibrillator: No Changes in usual pain pattern or pertinent recent trauma or surgery? _x_ No, patient transferred or will be contacted by planetarium technician to make appointment for requested procedure. Patient's questions regarding requested procedure were answered and patient verbalized understanding. Patient knows how to contact the Pain Management Center and understands that they may do so at any time should they have further questions or concerns. Jamarcus F. Puentes, COLD ROLL INSPECTOR documented in this encounter Plan of Treatment Not on filedocumented as of this encounter Visit Diagnoses Not on filedocumented in this encounter Care Teams Operating Room Registered Nurse Relationship Specialty Start Date End Date Julius Antonio MD PCP - General 09/21/10 04/03/[address] [place] [address] documented as of this encounter
--- OUTSIDE RECORDS SUMMARY | 2022-08-26 01:48 | XMS_ITS | Encounter Summary ---
:1955 Author Organization [facility] [place] [address] Care Team Providers Name Role Phone Shannon Remy MD Primary Care Provider Reason for Visit Consultation (Routine) - Closed Specialty Diagnoses / Procedures Referred By Contact Refer red To Contact Pain Management Diagnoses CERVICAL RADICULOPATHY, RIGHT SHOULDER PAIN, UNSPECIFIED CHRONICITY Sirena Eli APRN [facility] 3d Procedures PRO INJECTION DX/THER SBST INTRLMNR CRV/THRC W/IMG GDN [address] [place] [place] [id number] [place] [phone] Fax: Referral ID Status Reason Start Date Expiration Date Visits V isits Requested Authorized [id number] Closed Consult, 05/31/2018 05/31/2019 1 1 Test & Treat Connection Center Encounter Details Date Type Department Care Team Description 07/09/2018 Procedure visit Pain Management at [facility] PATIENT NOT SEEN SHALOM Cordova MD [facility] [address] [facility] PAIN MEDICINE [address] [place] [address] [phone] Social History Tobacco Use Types Packs/Day Years Used Date Never Smoker Smokeless Tobacco: Never Used Sex Assigned at Date Recorded Not on file documented as of this encounter Progress Notes Yao Rosales MD - 07/09/2018 9:42 AM EDT This patient was not seen in this encounter. He requires a cervical MRI completed within the last 24months in order to proceed with ANASTASIIA. His most recent cervical MRI was 42 [address] an order for a cervical MRI and he will have is ANASTASIIA rescheduled. Yao [facility] MD [facility] Board Certified Fruit Rancher documented in this encounter Plan of Treatment Not on filedocumented as of this encounter Visit Diagnoses Diagnosis DH PATIENT NOT SEEN documented in this encounter Care Teams Technical Developer Relationship Specialty Start Date End Date Shannon Remy MD PCP - General General Internal Medicine 06/09/17 07/03/[address] [place] [address] documented as of this encounter
--- OUTSIDE RECORDS SUMMARY | 2022-08-26 01:48 | XMS_ITS | Encounter Summary ---
:1955 Author Organization [facility] [place] [address] Care Team Providers Name Role Phone Julius Antonio MD Primary Care Provider [phone] Reason for Referral Consultation (Routine) - Closed Specialty Diagnoses / Procedures Referred By Contact Refer red To Contact Pain Management Diagnoses Radiculopathy of cervical region Raymond Beavers MD [facility] [address] [place] [address] SP[place], [place] [address] [place] [phone] Fax: Referral ID Status Reason Start Date Expiration Date Visits V isits Requested Authorized [id number] Closed Consult, 02/24/2015 02/24/2016 3 3 Test & Treat Reason for Visit Reason Comments Right Arm Pain elbow to hand Right Shoulder Pain Other pain in right ribs Encounter Details Date Type Department Care Team Description 02/24/2015 Office Visit Spine Center at Raymond Beavers Radiculop [facility] Carmella Cordova MD cervical region [facility] [address] [place] [address] [phone] Social History Tobacco Use Types Packs/Day Years Used Date Never Smoker Smokeless Tobacco: Never Used Sex Assigned at Date Recorded Not on file documented as of this encounter Last Filed Vital Signs Vital Sign Reading Time Taken Comments Blood Pressure 149/91 02/24/2015 3:10 PM EDT Pulse - - Temperature - - Respiratory Rate - - Oxygen Saturation - - Inhaled Oxygen Concentration - - Weight 104.3 kg (230 lb) 02/24/2015 3:10 PM EDT Height 193 cm (6' 4) 02/24/2015 3:10 PM EDT Body Mass Index 28 02/24/2015 3:10 PM EDT documented in this encounter Progress Notes Raymond Beavers MD - 02/24/2015 3:48 PM EDT CHIEF COMPLAINT: Neck and right arm pain and numbness. SUBJECTIVE: This problem began without injury or incident in 08/2014 with a stiff neck, which gradually involved pain radiating down to his right elbow and then diffusely into his right hand with numbness all of this affecting more the thumb, index, and long finger compared to the fourth and fifth digits. No power loss with this, but this is a very annoying problem of pain and numbness and has not really resolved over recent months despite efforts with physical therapy and home exercise program, a course of what sounds like oral steroids. He has been able to continue to work and he has no problems with coordination of his hand nor with gait disturbance. He feels his general health is otherwise very stable. OBJECTIVE: His affect is bright. Cervical range of motion is important for exact reproduction of his right upper extremity symptoms with extension and a coupled side flexion to the right. He is easily able to relieve this, however, by resuming by a neutral position. His touch sensation is grossly accurate in the upper extremities. His power screen has done without weakness. He is symmetrically hyporeflexic throughout all four extremities. There is no Mary sign and no ataxia on tandem walking. His MRI of the cervical spine from 12/2014 was reviewed with him at length. This showed straightening of the usual cervical lordosis with disc osteophyte complexes that are right side predominant at C4-C5, C5-C6, and C6-C7. 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 In this context, this was a counseling-based visit for 25 of the 45-minute encounter talking about the options of temporizing, cervical epidural steroid injection, surgical decompression with anterior cervical discectomy and fusion, and consideration of trying to pinpoint the offended nerve root, perhaps more specifically more with electrodiagnostic testing. I think he and his have a good understanding of these issues and we have mutually decided to proceed as follows. PLAN: Cervical epidural steroid injection, review progress three weeks thereafter with contingency of surgical consultation if this is not effective for him. documented in this encounter Plan of Treatment Scheduled Referrals Name Type Priority Associated Diagnoses Order S chedule Referral to Pain Outpatient Referral Routine Radiculopathy of Ordered: Clinic cervical region 02/24/2015 documented as of this encounter Visit Diagnoses Diagnosis Radiculopathy of cervical region Brachial neuritis or radiculitis nos documented in this encounter Care Teams Time Clerk Relationship Specialty Start Date End Date Julius nAtonio MD PCP - General 09/21/10 04/03/[address] [place] [address] documented as of this encounter
--- OUTSIDE RECORDS SUMMARY | 2022-08-26 01:48 | XMS_ITS | Encounter Summary ---
:1955 Author Organization [facility] [place] [address] Care Team Providers Name Role Phone Shannon Remy MD Primary Care Provider Reason for Referral Consultation (Routine) - Closed Specialty Diagnoses / Procedures Referred By Contact Refer red To Contact Orthopaedics Diagnoses Osteoarthritis of spine with radiculopathy, cervical region [facility] [address] [place] [address] [address] [phone] Referral ID Status Reason Start Date Expiration Date Visits V isits Requested Authorized [id number] Closed Consult, 07/12/2018 07/12/2019 1 1 Test & Treat Reason for Visit Reason Comments Right Arm Pain Surgical (Routine) - Closed Specialty Diagnoses / Procedures Referred By Contact Refer red To Contact Pain Management Diagnoses Spondylolysis, cervical region ANASTASIIA (NPO) Sirena Eli, MANAGER QA Obed Alvarado MD Procedures PRO INJECTION DX/THER SBST INTRLMNR CRV/THRC W/IMG GDN PROCEDURE [address] [place], [place] PAIN CLINIC [id number] [place] [phone] Fax: Referral ID Status Reason Start Date Expiration Date Visits Requ ested Visits Authorized [id number] Closed 07/12/2018 07/12/2019 1 1 Encounter Details Date Type Department Care Team Description 07/12/2018 Procedure visit Pain Management at Obed Alvarado, Os teoarthritis of spine with radiculopathy, cervical region (Primary Dx); [facility] Radiculopathy of cervical region [facility] [address] [facility] [place] [phone] Social History Tobacco Use Types Packs/Day Years [...] Mass Index 27.39 07/12/2018 2:13 PM EDT documented in this encounter Patient Instructions Patient InstructionsPamela Vivar LPN - 07/12/2018 2:15 PM EDT Pain Management Center Discharge Instructions: You were seen by Dr. Obed Alvarado MD and Corazon Griffin MD who performed cervical epidural steroid injection. It [...] your procedure. You received the following medications: Depo-Medrol 80 mg, Lidocaine and Omnipaque (contrast dye). During regular business hours, please phone the Pain Management Center at with any questions or if the following [...] or proceed to your local emergency department. Pamela Vivar LPN Special instructions documented in this encounter Progress Notes Corazon Griffin MD - 07/12/2018 2:15 PM EDT PREPROCEDURE HISTORY AND PHYSICAL Date of Visit: July 12, 2018 Chief Complaint: Neck pain HPI: Subjective Edwin Weiss is a 63 y.o. male who presents today for cervical epidural steroid injection. The history is obtained from the patient, and I have reviewed medical records provided by the referring physician and located in the electronic medical record to fill in gaps in the patient's recollection of events, treatments and outcomes. LOCATION: Neck and right upper extremity. PAIN LEVEL AT REST 10 PAST MEDICAL HISTORY: No past medical history on file. PAST SURGICAL HISTORY: No past surgical history on file. ALLERGIES: Review of patient's allergies indicates no known allergies. MEDICATIONS: Medications 07/12/18 5749 Medication Sig Taking? predniSONE (DELTASONE) 20 mg Tablet Daily zoster vaccine live, PF, (ZOSTAVAX) 19,400 unit/0.65 mL Suspension for Reconstitution Once simvastatin (ZOCOR) 40 mg Tablet TAKE ONE TABLET BY MOUTH EVERY DAY aspirin 325 mg Tablet Take 325 mg by mouth daily. tamsulosin (FLOMAX) 0.4 mg Capsule, Sust. Release 24 hr Take 0.4 mg by mouth daily. FAMILY HISTORY: No family history on file. SOCIAL HISTORY: Social History Social History ??? Marital status: [...] ??? Not on file Social History Narrative ROS: Patient denies recent fevers, chills, infections, wounds, hospitalizations, ED visits or antibioticsuse PHYSICAL EXAM: CV: RRR Pulm: CTA B Skin: No concerning infection, erythema or warmth near the procedure site RADIOLOGIC DATA: MRI reviewed ASSESSMENT: 1. Osteoarthritis of spine with radiculopathy, cervical region Assessment Edwin Wesis is a 63 y.o. male who presents today for cervical epidural steroid injection. Risks and benefits were discussed with the patient and all questions answered. There are no contraindications to proceed. PLAN: Proceed with procedure as planned. Corazon Griffin MD Pain Fellow [facility] Cervical Epidural Steroid Injection Date of Service: 07/12/2018 Patient: Edwin Weiss Provider: Corazon Griffin MD Edwin Weiss has been referred to the Pain Management Center for cervical epidural steroid injection. Mr. Weiss was interviewed and the medical record reviewed. There were no medical, pharmacologic, radiographic or other structural contraindications to attempting fluoroscopically guided epidural steroid injection. Risks and expected side effects as well as potential benefit of the procedure were rev iewed with Mr. Weiss, and his voiced concerns addressed. The printed consent form was signed and witnessed. Standard time-out procedure was performed. The patient was placed in the prone position on the fluoroscopy table and automated blood pressure cuff and pulse oximeter applied. The skin entry point for entering the epidural space by a midline C7-T1 interlaminar approach was identified under fluoroscopy and marked. Following thorough Chlorhexadine preparation of the skin and draping and 1% lidocaine infiltration of the skin entry point and subcutaneous tissues, an 17 gauge Tuohy needle was placed under fluoroscopic guidance and with loss of resistance technique into the epidural space. Upon needle placement and loss of resistance there were no paresthesiae or return of blood or CSF through the needle. An Arrow catheter was thread cephalad to the C7-T1 level right of midline. 1 ml of Omnipaque 240 were injected with clear epiduralspread in the A/P, lateral and oblique views. 80mg Depomedrol with 1ml sterile normal saline were injected through the catheter with no unusual discomfort expressed by Mr. [...] discharged from the Pain Management Center. COMMENTS: No IV needed. Patient was sent to the Spine center for cervical evaluation for severe cervical stenosis. CC: Shannon Remy MD [address] [place] [address] Pamela Vivar LPN - 07/12/2018 2:15 PM EDT Pre-Procedure Screening Questions: 1. Status: No 2. 3. Patient states they have a local driver to transport after procedure? Yes 4. Patient taking antibiotics at present? No 5. NPO per Pain Management Center protocol? Yes 6. 7. Patient diabetic: No __ borderline (not treated with medications) __ managed with oral medications __ managed with injected medications 8. Patient routinely taking anticoagulants ? No Date stopped Current INR Patient Vital Signs documented in Doc Flowsheets associated with this encounter. Patient Discharge Instructions were reviewed with patient and copy provided to patient. documented in this encounter Plan of Treatment Scheduled Referrals Name Type Priority Associated Diagnoses Order S chedule Referral to Spine Outpatient Referral Routine Osteoarthritis o f spine Ordered: Center with radiculopathy, 07/12/20 18 cervical region documented as of this encounter Visit Diagnoses Diagnosis Osteoarthritis of spine with radiculopat hy, cervical region - Primary Radiculopathy of cervical region Brachial neuritis or radiculitis nos documented in this encounter Administered Medications Inactive Administered Medications - up to 3 most recent administrations Medication Order MAR Action Action Date Dose Rate Site iohexol (OMNIPAQUE) 240 mg/mL Given 07/12/2018 2:45 PM EDT 1 mL solution 1 mL 1 mL, Epidural, ONCE, 1 dose, On Mari 07/12/18 at 1445, Wasted 49 ml, Routine methylPREDNISolone acetate (DEPO-Medrol) Given 07/12/2018 2:45 P M EDT 80 mg injection 80 mg 80 mg, Epidural, ONCE, 1 dose, On Mari 07/12/18 at 1445, Routine documented in this encounter Care Teams Manager Quality Systems Relationship Specialty Start Date End Date Shannon Remy MD PCP - General General Internal Medicine 06/09/17 07/03/[address] [place] [address] documented as of this encounter
--- OUTSIDE RECORDS SUMMARY | 2022-08-26 01:48 | XMS_ITS | Encounter Summary ---
:1955 Author Organization [place] [address] Care Team Providers Name Role Phone Julius Antonio MD Primary Care Provider [phone] Reason for Visit Reason Comments Skin Check Encounter Details Date Type Department Care Team Description 04/03/2017 Office Visit Dermatology at [facility], History of SCC (squamous cell carcinoma) of skin; Kristin BETHEA Seborrheic keratosis; [address] Solar lentigo Eren B DERMATOLOGY [place], [place] [id number] [phone] Social History Tobacco Use Types Packs/Day Years Used Date Never Smoker Smokeless Tobacco: Never Used Sex Assigned at Date Recorded Not on file documented as of this encounter Progress Notes Luke Myrick MD - 04/03/2017 4:00 PM EDT PROBLEM: 1. New moles of concern. 2. History of SCCA right conchal bowl, 04/2003. Edwin follows up and has been doing well. His is concerned about some lesions on his back. He continues to get a lot of sun. He was out this weekend working on a deck and got quite red, but he states he never babb. He turns red as a lobster but then he just turns all to burgos. 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 Often he is out on a boat or camping as well. I asked him initially if he had been down in [place] this summer, but no. This is just all from exposure that he has had just in February. Physical examination reveals a pleasant 61-year-old gentleman who has numerous lentigos and ephelides over the upper shoulders and upper back. He has a couple of lentigos that are turning to small SKs on his midback, right at midline. Fortunately, careful examination of the thinning vertex of the scalp, the face, the ears, the neck, the chest, the back, hands, arms, forearms, thighs and calves is otherwise benign. A/P: Benign skin examination. a. Patient reassured about benign solar lentigos and seborrheic keratoses. b. Stressed to him, urged him, to follow better sun avoidance precautions, wear a shirt when working out on the deck, use sunscreen, wear a hat, etc. Stressed that he has already had 1 SCCA and that more are on their way, at heightened risk if he continues his current sun exposure levels. c. Patient states that he will try to do better. Recommend I see him back here p.r.n. for new lesions/concerns. CC: Julius Antonio MD documented in this encounter Plan of Treatment Not on filedocumented as of this encounter Visit Diagnoses Diagnosis History of SCC (squamous cell carcinoma) of skin Personal history of other malignant neop lasm of skin Seborrheic keratosis Other seborrheic keratosis Solar lentigo Other dyschromia documented in this encounter Care Teams Medical Legal Investigator Relationship Specialty Start Date End Date Julius Antonio MD PCP - General 09/21/10 04/03/17 [address] [place] [address] documented as of this encounter
--- OUTSIDE RECORDS SUMMARY | 2022-08-26 01:48 | XMS_ITS | Encounter Summary ---
:1955 Author Organization [facility] [place] [address] Care Team Providers Name Role Phone Julius Atnonio MD Primary Care Provider [phone] Encounter Details Date Type Department Care Team Description 11/11/2015 Telephone Pain Management [place] [address] Social History Tobacco Use Types Packs/Day Years Used Date Never Smoker Smokeless Tobacco: Never Used Sex Assigned at Date Recorded Not on file documented as of this encounter Miscellaneous Notes Telephone Encounter - Ofelia Hammonds LPN - 11/11/2015 1:44 PM EST Edwin Weiss :1955 Message left: I left a message on answering machine Mr. Weiss at 1:44 PM regarding his upcoming cervical epidural steroid injection with Dr. Josiah Crenshaw DO. Message included the followin. Patient instructed to arrive at 7:00 (30 minutes prior to procedure start time) on 11/12/15 (date of procedure) with their vending route driver. 2. Following instructions left in the message: - Bring Updated list of medications including dosage and reason for taking. - Call the Pain Clinic Nurse at for: ~Procedure instructions. ~If you are taking antibiotics. ~If you have any signs or symptoms of infection, cold or flu. ~If you have any skin breakdown (rashes, cysts, or abscess.) ~If you are taking anticoagulants / blood thinners (Plavix, Pletal, Lovenox, Coumadin, etc). ~If you had any steroid injections anywhere in your body within the last two weeks? 3. If patient NPO: No food after 1:30 (6 hours prior to procedure start time); clear fluids only up until 5:30 (2 hours prior to procedure start time) JOHN Gilbert documented in this encounter Plan of Treatment Not on filedocumented as of this encounter Visit Diagnoses Not on filedocumented in this encounter Care Teams Clamp Operator Relationship Specialty Start Date End Date Julius Antonio MD PCP - General 09/21/10 04/03/[address] [place] [address] documented as of this encounter
--- OUTSIDE RECORDS SUMMARY | 2022-08-26 01:48 | XMS_ITS | Encounter Summary ---
:1955 Author Organization [facility] [place] [address] Care Team Providers Name Role Phone Shannon Remy MD Primary Care Provider Encounter Details Date Type Department Care Team Description 07/09/2018 [facility] [place] [address] Social History Tobacco Use Types Packs/Day Years Used Date Never Smoker Smokeless Tobacco: Never Used Sex Assigned at Date Recorded Not on file documented as of this encounter Plan of Treatment Not on filedocumented as of this encounter Visit Diagnoses Not on filedocumented in this encounter Care Teams Health Unit Supervisor Relationship Specialty Start Date End Date Shannon Remy MD PCP - General General Internal Medicine 06/09/17 07/03/19 [address] [place] [address] documented as of this encounter
--- OUTSIDE RECORDS SUMMARY | 2022-08-26 01:48 | XMS_ITS | Encounter Summary ---
:1955 Author Organization [facility] [place] [place] [address] Care Team Providers Name Role Phone Shannon Remy MD Primary Care Provider Reason for Visit Reason Comments Neck Pain tingling to right arm someti mes fingers go numb Consultation (Routine) - Closed Specialty Diagnoses / Procedures Referred By Contact Refer red To Contact Orthopaedics Diagnoses Osteoarthritis of spine with radiculopathy, cervical region Obed Alvarado MD [facility] D [facility] [place] [address] [place] [address] Referral ID Status Reason Start Date Expiration Date Visits V isits Requested Authorized [id number] Closed Consult, 07/12/2018 07/12/2019 1 1 Test & Treat Encounter Details Date Type Department Care Team Description 07/24/2018 Office Visit Spine Center at Ricardo Wilcox, Radiculo mukesh of [place] cervical region [facility] [address] [place] [address] [phone] Social History Tobacco Use Types Packs/Day Years Used Date Never Smoker Smokeless Tobacco: Never Used Sex Assigned at Date Recorded Not on file documented as of this encounter Progress Notes Ricardo Wilcox MD - 07/24/2018 3:00 PM EDT Images from the original note were not included. Ricardo Wilcox MD MS FAOA Department of Orthopaedics [facility] July 24, 2018 Mr. Weiss is a 63-year-old tpsab-nzyu-pumiahzs gentleman seen today in the Spine Center in consultation from Dr. Alvarado. He is seen and evaluated for resolving right arm pain numbness and tingling to all digits of the right hand. Left upper extremity is asymptomatic. Right arm was more problematicthan the neck pain. He had a similar problem 3 years ago when he was seen in the Spine Center at that time. He underwent physical therapy which did not help. He underwent an injection which alleviated his symptoms up until most recently when about 3 months ago with a spontaneous onset he redeveloped right arm pain as described above. He has no weakness. He is worse with cervical extension. Night paingenerally is not a problem. He has no problems with gait balance of fine motor control. His review of systems is negative for GI, , constitutional symptoms. 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 He has a history of diverticulitis. He has no medication allergies. Height is 6 feet 4 inches, weight is 225 pounds with a body mass index of 27.23. Pain over the past week is rated as a 1. He is accompanied by his . This is a healthy-appearing physically fit gentleman. He moves easily and comfortably about the office. His gait is normal. He can Toe Walk and Heel Walk and tandem gait without problems. His cervical spine is normal in appearance and is nontender to palpation. He has about 60 degrees of bilateral rotation full flexion of 50% of extension. He has neck pain with extension. Spurling's maneuver is notable for right-sided shoulder pain only. His reflexes are notable for diminished brachioradialis on theright otherwise his reflexes are normal clonus and Babinski's are absent. Mary reflexes are negative. He is not spastic. Is not myelopathic. Cervical MRI is reviewed from this institution on 07/12/18 demonstrating multilevel cervical spondylosis worse at C5-6, and C6-C7 but present also at C4- C5 on the right and C3-C4 left greater than right. Impression: Resolving right cervical radiculitis, level unclear based on global numbness in all fingers of his right hand. Neurologic exam is very reassuring for the absence of any myelopathic symptoms. Symptoms have responded well to his first epidural injection the cervical spine on 07/12/18. Recommendation: I reviewed these findings including the MRI with the patient and his . I noted the multilevel degenerative changes which would certainly complicate any surgical strategy from an anterior point of view. Options would include ACDF C5-6 C6-C7 recognizing that this may not be his last operation even adjacent segment degeneration. Additional options for consideration would be posteriorcervical foraminotomies multilevel right side. If his symptoms return I would recommend return to the pain clinic for epidural injections as these have been quite helpful and consideration of gabapentin. Will check as needed. authorGEN voice recognition was used for this dictation and I apologize for any mis-wording. [facility] Center Response Trends Patient-reported scores: myD-H Spine Questionnaire responses 02/24/2015 07/23/2018 VR36 - Physical Function (Range: 0-100) 54.5 - VR36 - Bodily Pain (Range: 0-100) 52.7 - VR36 - PCS (Range: 0-100) 50 - VR36 - MCS (Range: 0-100) 30.9 - Neck Disability Index (Range: 0-100) 18 (Mild disability) 16 (Mild disability) PROMIS-10 Physical Health Score - 50.8 PROMIS-10 Mental Health Score - 50.8 Ricardo Wilcox MD MS FAOA Department of Orthopaedic Surgery [place] [address] [facility] Department Chair of Orthopaedic Surgery [facility] [phone] [email or web address] documented in this encounter Plan of Treatment Scheduled Referrals Name Type Priority Associated Diagnoses Order S chedule Referral to Spine Outpatient Referral Routine Osteoarthritis o f spine Ordered: Center with radiculopathy, 07/12/20 18 cervical region documented as of this encounter Visit Diagnoses Diagnosis Radiculopathy of cervical region Brachial neuritis or radiculitis nos documented in this encounter Care Teams Aircraft Tool Maker Relationship Specialty Start Date End Date Shannon Remy MD PCP - General General Internal Medicine 06/09/17 07/03/[address] [place] [address] documented as of this encounter
--- OUTSIDE RECORDS SUMMARY | 2022-08-26 01:48 | XMS_ITS | Encounter Summary ---
:1955 Author Organization [facility] [place] [place] [address] Care Team Providers Name Role Phone Shannon Remy MD Primary Care Provider Encounter Details Date Type Department Care Team Description 07/24/2018 Hospital Encounter XRay at [facility] Ricardo Wilcox, Stenosis of cervical [facility] spine [facility] [address] [place] [phone] [place] [address] Social History Tobacco Use Types Packs/Day Years [...] Priority Date/Time Associated Diagnosis Comme nts XR CERVICAL SPINE 2 Routine 07/24/2018 1:48 PM Stenosis of cer vical Results for this OR 3 VIEWS EDT spine procedure are i n the results section. documented in this encounter Results XR Cervical Spine 2 Or 3 Views (07/24/2018 1:48 PM EDT) Anatomical Region Laterality Modality C-spine N/A Digital Radiography Specimen (Source) Anatomical Location Collection Method / Collectio n Time Received Time / Laterality Volume Impressions 07/24/2018 4:15 PM EDT Degenerative disc disease at the 5/C6 without evidence of dynamic instability. I have personally reviewed the image(s) and the residents interpretation and agree with the findings, Lakeshia Saucedo at 07/01 4:15 PM Narrative 07/24/2018 4:15 PM EDT EXAMINATION: XR CERVICAL SPINE 2 OR 3 VIEWS CLINICAL HISTORY: Cervical spine stenosi s. TECHNIQUE: AP, lateral extension, and lateral flexi on views of the cervical spine. COMPARISON: MR cervical spine dated 07/12/2018. FINDINGS: On the lateral views, cervical spine is only visualized as far inferiorly as the C7 superior endplate. No spondylolisthes is is identified on either the flexion or extension view. The predental interva l is normal in both flexion and extension views. There is no evidence of dynamic instability. The visualized vertebral body heights are preserved. Th ere is slightly decreased intervertebral disc space height at C5/C6, compatible w ith known degenerative disc disease, with small associated endplate osteophyt es. No significant prevertebral soft tissue swelling. Procedure Note Lakeshia Saucedo MD - 07/24/2018Formatting o f this note might be different from the original. EXAMINATION: XR CERVICAL SPINE 2 OR 3 EWS CLINICAL HISTORY: Cervical spine stenosi s. TECHNIQUE: AP, lateral extension, and lateral flexi on views of the cervical spine. COMPARISON: MR cervical spine dated 07/12/2018. FINDINGS: On the lateral views, cervical spine is only visualized as far inferiorly as the C7 superior endplate. No spondylolisthes is is identified on either the flexion or extension view. The predental interva l is normal in both flexion and extension views. There is no evidence of dynamic instability. The visualized vertebral body heights are preserved. Th ere is slightly decreased intervertebral disc space height at C5/C6, compatible w ith known degenerative disc disease, with small associated endplate osteophyt es. No significant prevertebral soft tissue swelling. IMPRESSION Degenerative disc disease at the 5/C6 wi thout evidence of dynamic instability. I have personally reviewed the image(s) and the residents interpretation and agree with the findings, Lakeshia Saucedo at 07/01 4:15 PM Ricardo Wilcox MD IMG DX ORDERABLES documented in this encounter Visit Diagnoses Diagnosis Stenosis of cervical spine Spinal stenosis in cervical region documented in this encounter Care Teams Stage Driver Relationship Specialty Start Date End Date Shannon Remy MD PCP - General General Internal Medicine 06/09/17 07/03/[address] [place] [address] documented as of this encounter
--- OUTSIDE RECORDS SUMMARY | 2022-08-26 01:48 | XMS_ITS | Encounter Summary ---
:1955 Author Organization [facility] [place] [address] Care Team Providers Name Role Phone Julius Antonio MD Primary Care Provider [phone] Reason for Visit Reason Comments Neck Pain Encounter Details Date Type Department Care Team Description 03/25/2015 Office Visit Spine Center at Collette Cabrera, PT [facility] Radiculopathy [facility] Julius Antonio MD [address] [place] [address] [place] [phone] Social History Tobacco Use Types Packs/Day Years Used Date Never Smoker Smokeless Tobacco: Never Used Sex Assigned at Date Recorded Not on file documented as of this encounter Progress Notes Collette Cabrera PT - 03/25/2015 9:34 AM EDT PHYSICAL THERAPY INITIAL EXAMINATION Date of First Exam/ First Treatment: 03/25/2015 Referring provider: Raymond Beavers M.D. Diagnosis: 1. Radiculopathy of cervical region 2. Disc osteophyte complex C4-C5, C5-C6, and C6-C7 Date of onset: August 2014 Work Status: [employer]; at work Edwin Weiss was [facility] physical therapy consult at the request of Raymond Beavers M.D. He was seen with the expectation to see if there is anything that can be done from an exercise perspective to ease the pain and improve his ability to function. History of Present Illness: Mr. Weiss reports in August 2014 without incident or trauma he began to have a stiff and painful and neck. These symptoms gradually worsened over the next several days and began to radiate down the right upper extremity to the elbow. A recent MRI of the cervical spine has revealed disc osteophyte complexes at C4-C5, C5-C6, and C6-C7. Treatment to date has included physical therapy and most recently a cervical epidural steroid injection. Since his injection the pain has improved considerably. Mr. Weiss currently complains of neck pain with radiation to the right shoulder and scapula and intermittently to that right elbow. He has intermittent numbness and tinglingin the dorsum of the right hand including digits 1 through 4, but no weakness. Symptoms worsen when looking down, looking up, turning, side bending to the right, and lying on the right side. Symptoms sees when lying on the left side, sitting reclined, or lying in the supine position. The pain is usually at its least in the morning and then worsens by noon time and remains relatively stable throughoutthe rest of the day. Sleep is disturbed on occasion due to the pain. Mr. Weiss's functional self care goal includes being able to look down and without difficulty. Patient Active Problem List Diagnosis Code ??? 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 He does not use tobacco, drinks alcohol in moderation and exercises by walking. Physical Exam: Mr. Weiss is a pleasant 59 y.o. male who moves about in the exam room without difficulty and appears somewhat uncomfortable while seated. Sitting posture is poor and standing is good.Examination of the spine in the standing position reveals a mildly protruded head posture. Active range of motion of bilateral shoulders is full and painless. Active range of motion of the cervical spine is limited to 50?? flexion, 20?? extension, 40?? right rotation, 40?? left rotation, 30?? right sidebending, and 30?? left sidebending. End range flexion, extension, bilateral rotation, and right sidebending all worsen the pain. Slouched sitting worsens and peripheralizes the pain while sitting fully erect centralizes it. Repeating movement testing of the cervical spine did not reveal a clear directional preference. In fact, it is clear he feels most comfortable with the spine in midrange. Physical Therapy Assessment: Mr. Weiss is a man with a history of neck and right arm pain which is interfering with his ability to function. The physical exam is significant for poor sitting posture, reduced range of motion of the cervical spine, and no clear directional preference with movement testing. The history and exam is consistent with cervical radiculopathy likely related to disc osteophyte complexes at multiple levels. I believe that these deficits can improve with physical therapy treatments directed to the neck consisting of instruction in mechanical soft care, posture correction, and self mobilization exercises. Mr. Weiss has a good rehabilitation potential and I anticipate to meet with him for 4-5 additional visits over the next 8-10 weeks. Treatment Plan: The natural history of radiculopathies and rational for exercise based treatment wasreviewed. Mr. Weiss was given a home exercise program consisting of cervical left sidebending or cervical flexion combined with left rotation as needed throughout the day to relieve his symptoms. Along with the prescribed exercises, we discussed the principles of symptom self monitoring and posturecorrection of the seated and lying position. While here in the clinic he trialed several supports and found the original Gabbi cervical roll and the original Gabbi SuperRoll to be most comfortable. He was strongly encouraged to read the Treat Your Own Neck booklet prior to the next appointment. He will call with any questions, concerns, or if the pain worsens. Mr. Weiss will [facility] a follow up appointment early next week with the hope that he is ready to [facility]. Physical Therapy Goals in 4 weeks: 1. Independent with home exercise program 2. Able to sit without discomfort 3. Able to turn without discomfort 4. Able to look up without discomfort The plan has been discussed with the patient and Edwin Weiss has agreed with the planned treatment. 45 minutes were spent interviewing, assessing, and instructing Edwin Weiss in a home exercise program. documented in this encounter Plan of Treatment Not on filedocumented as of this encounter Visit Diagnoses Diagnosis Radiculopathy of cervical region Brachial neuritis or radiculitis nos documented in this encounter Care Teams Attending Anesthesiologist Relationship Specialty Start Date End Date Julius Antonio MD PCP - General 09/21/10 04/03/[address] [place] [address] documented as of this encounter
--- OUTSIDE RECORDS SUMMARY | 2022-08-26 01:48 | XMS_ITS | Encounter Summary ---
:1955 Author Organization [place] [address] Care Team Providers Name Role Phone Julius Antonio MD Primary Care Provider [phone] Encounter Details Date Type Department Care Team Description 10/21/2015 Telephone Pain Management at [facility] Jamarcus Puentes, [place] [address] Social History Tobacco Use Types Packs/Day Years Used Date Never Smoker Smokeless Tobacco: Never Used Sex Assigned at Date Recorded Not on file documented as of this encounter Miscellaneous Notes Telephone Encounter - Jamarcus Puentes LPN - 10/21/2015 10:04 AM EST Returned pt's call related to scheduling a repeat procedure. No answer. Left message. documented in this encounter Plan of Treatment Not on filedocumented as of this encounter Visit Diagnoses Not on filedocumented in this encounter Care Teams Philosophy Instructor Relationship Specialty Start Date End Date Julius Antonio MD PCP - General 09/21/10 04/03/17 [address] [place] [address] documented as of this encounter
--- OUTSIDE RECORDS SUMMARY | 2022-08-26 01:48 | XMS_ITS | Encounter Summary ---
:1955 Author Organization [facility] Address [place] [address] Care Team Providers Name Role Phone Julius Antonio MD Primary Care Provider [phone] Reason for Referral Physical Therapy (Routine) - Closed Specialty Diagnoses / Procedures Referred By Contact Refer red To Contact Physical Therapy Diagnoses Radiculopathy of cervical region Raymond Beavers MD [facility] Spine Pt [facility] D [facility] SPINE [address] [address] Referral ID Status Reason Start Date Expiration Date Visits V isits Requested Authorized [id number] Closed Evaluate and 03/25/2015 03/24/2016 3 3 Treat Reason for Visit Reason Comments Right Shoulder Pain Right Arm Pain Encounter Details Date Type Department Care Team Description 03/25/2015 Office Visit Spine Center at Raymond Beavers Radiculop nikki Carmella Cordova MD cervical region [facility] [address] [place] [facility] [address] [place] [address] [phone] Social History Tobacco Use Types Packs/Day Years Used Date Never Smoker Smokeless Tobacco: Never Used Sex Assigned at Date Recorded Not on file documented as of this encounter Plan of Treatment Scheduled Referrals Name Type Priority Associated Diagnoses Order S chedule Referral to Outpatient Referral Routine Radiculopathy of Orde red: Physical Therapy cervical region 03/25/20 15 documented as of this encounter Visit Diagnoses Diagnosis Radiculopathy of cervical region Brachial neuritis or radiculitis nos documented in this encounter Care Teams Loom Changer Relationship Specialty Start Date End Date Julius Antonio MD PCP - General 09/21/10 04/03/[address] [place] [address] documented as of this encounter
--- OUTSIDE RECORDS SUMMARY | 2022-08-26 01:48 | XMS_ITS | Encounter Summary ---
:1955 Author Organization [place] [address] Care Team Providers Name Role Phone Shannon Remy MD Primary Care Provider Reason for Visit Reason Comments Follow Up Surgery s/p excision digital mucous cyst dos 07/27/17 Encounter Details Date Type Department Care Team Description 08/03/2017 Office Visit Plastic Surgery at Cas Whitney s cyst of finger [facility] MD Govind [facility] [address] [place] PLASTIC SURGERY [address] [place] [address] [phone] Social History Tobacco Use Types Packs/Day Years Used Date Never Smoker Smokeless Tobacco: Never Used Sex Assigned at Date Recorded Not on file documented as of this encounter Progress Notes Cas Whitney MD - 08/03/2017 4:00 PM EDT Plastic Surgery Post Op Note Reason for visit: F/U status post procedure Date of surgery: 07/27/17 Procedure(s): Excision mucous cyst Complications: None reported HPI: Pt reports he has been doing well since surgery. He has been keeping the incision line covered with a bandage. Examination: Patient is alert, conversant, comfortable, ambulating Incision: CDI, healing well. No collection, no erythema, no evidence of cellulitis. FROM of finger, finger n/v intact. Impression: Edwin Weiss is a 62 y.o. male who was seen today for follow-up after the above procedure. Please see the operative note for details. He is doing well without complaints. I recommend he not soak the finger in water for one more week. He may follow up with me with any concerns. Plan: Ok to wash with soap and water, pat dry Do not soak for 1 more week Follow up PRN I, Mily Childs, am acting as scribe for Cas Palma MD . All work documented was performed by Cas Palma MD. ???I performed the above scribed service and agree with the accuracy of the note?? Cas Whitney MD documented in this encounter Plan of Treatment Not on filedocumented as of this encounter Visit Diagnoses Diagnosis Mucous cyst of finger Sebaceous cyst documented in this encounter Care Teams Electronic Video Games Servicer Relationship Specialty Start Date End Date Shannon Remy MD PCP - General General Internal Medicine 06/09/17 07/03/[address] [address] documented as of this encounter
--- OUTSIDE RECORDS SUMMARY | 2022-08-26 01:48 | XMS_ITS | Encounter Summary ---
:1955 Author Organization [facility] [place] [address] Care Team Providers Name Role Phone Julius Olmedo MD Primary Care Provider [phone] Reason for Visit Reason Comments Neck Pain Surgical (Routine) - Closed Specialty Diagnoses / Procedures Referred By Contact Refer red To Contact Pain Management Procedures Aram Pillai DO [facility] Mso Pain PRO INJ CERV/THORAC, W/WO [facility] Ocon[facility] PRG FLUORO [place]IDE [place], [place] [address] [place] [address] Phone: Fax: Referral ID Status Reason Start Date Expiration Date Visits Requ ested Visits Authorized [id number] Closed 10/22/2015 10/21/2016 1 1 Encounter Details Date Type Department Care Team Description 11/12/2015 Procedure visit Pain Management at Aram Pillai Spon dylolysis of [facility] DO cervical region [facility] [address] [facility] [address] [place], [place] [phone] [facility] Social History Tobacco Use Types Packs/Day Years Used Date Never Smoker Smokeless Tobacco: Never Used Sex Assigned at Date Recorded Not on file documented as of this encounter Last Filed Vital Signs Vital Sign Reading Time Taken Comments Blood Pressure 153/107 11/12/2015 7:39 AM EST Pulse 58 11/12/2015 7:39 AM EST Temperature - - Respiratory Rate 18 11/12/2015 7:39 AM EST Oxygen Saturation 98% 11/12/2015 7:39 AM EST Inhaled Oxygen Concentration - - Weight 99.8 kg (220 lb) 11/12/2015 7:30 AM EST Height 190.5 cm (6' 3) 11/12/2015 7:30 AM EST Body Mass Index 27.5 11/12/2015 7:30 AM EST documented in this encounter Patient Instructions Patient InstructionsPamela Vivar, JOHN - 11/12/2015 7:37 AM EST Pain Management Center Discharge Instructions: You were seen by Dr. Aram Pillai DO and Sherri Harrison DO who performed cervical epidural steroid injection. [...] instructions documented in this encounter Progress Notes Pamela Vivar LPN - 11/12/2015 7:31 AM EST Pre-Procedure Screening Questions: 1. Status: No 2. 3. Patient states they have a delivery route driver to transport after procedure? Yes 4. Patient taking antibiotics at present? No 5. NPO per Pain Management Center protocol? No 6. 7. Patient diabetic: No __ borderline (not treated with medications) __ managed with oral medications __ managed with injected medications 8. Patient routinely taking anticoagulants ? No Date stopped Current INR Patient Vital Signs documented in Doc Flowsheets associated with this encounter. Patient Discharge Instructions were reviewed with patient and copy provided to patient. documented in this encounter Procedure Notes Sherri Harrison DO - 11/12/2015 7:27 AM ESTAssociated Order(s): EPIDURAL STEROID INJECTION Procedure(s): EPIDURAL STEROID INJECTION Pre-Procedure Diagnose(s): Spondylolysis of cervical region Procedure Note Cervical Interlaminar Epidural Steroid Injection Date of Service: 11/12/2015 Patient: Edwin Weiss Provider: SHERRI HARRISON DO Edwin Weiss has been referred to [...] from the Pain Management Center. COMMENTS: No complications. I was the attending physician supervising the resident in the above care and I was present with the resident for the entire procedure. ARAM PILLAI DO, MPH Territory Sales Executive of Anesthesiology and Medicine/Formerly [facility] [employer] [facility] Stock Wetter, Pain Medicine Fellowship ABPM&R - Subspecialty board certification in Pain Medicine CC: Julius Olmedo MD [facility] [place] [address] JULIUS OLMEDO MD [facility] [place] [address] documented in this encounter Plan of Treatment Not on filedocumented as of this encounter Procedures Procedure Name Priority Date/Time Associated Diagnosis Comme nts EPIDURAL STEROID Routine 11/12/2015 8:41 AM Spondylolysis of R esults for this INJECTION EST cervical region procedure ar e in the results section. documented in this encounter Results EPIDURAL STEROID INJECTION (11/12/2015 8:41 AM EST) Anais Pillai Aram Camarillo, DO - 11/12/2015 8:[address] Pillai Aram Camarillo, DO ? 11/12/2015 ??8:41 AM Procedure Note Cervical Interlaminar Epidural Steroid I njection Date of Service: ??11/12/2015 Patient: ??Edwin Weiss ?? MRN: ??[id number] Provider: ??SHERRI HARRISON, DO ?? Edwin Weiss has been referred to the Pain Management Center for cervical epidural steroid injection. ?? Mr. Weiss was interviewed and the [facility] record were reviewed. ??There were no [...] signed by the patient and myself. ??A st beatty time-out procedure was performed. The patient was [...] from the Pain Management Cent er. COMMENTS: No complications. I was the attending physician supervisin g the resident in the above care and I was present with the re sident for the entire procedure. 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 documented in this encounter Administered Medications Inactive Administered Medications - up to 3 most recent administrations Medication Order MAR Action Action Date Dose Rate Site dexamethasone(PF) (DECADRON) 10 Given 11/12/2015 7:45 AM EST 10 mg mg/mL injection 10 mg 10 mg, Epidural, ONCE, 1 dose, On Mari 11/12/15 at 0745, Routine iohexol (OMNIPAQUE) 240 mg/mL solution 1 mL Given 11/12/2015 7:45 AM EST 1 mL 1 mL, Epidural, ONCE, 1 dose, On Mari 11/12/15 at 0745, Wasted 49 ml, Routine documented in this encounter Care Teams Car Detailer Relationship Specialty Start Date End Date Julius Olmedo MD PCP - General 09/21/10 04/03/17 [address] [place] [address] documented as of this encounter
--- OUTSIDE RECORDS SUMMARY | 2022-08-26 01:48 | XMS_ITS | Encounter Summary ---
:1955 Author Organization [facility] [place] [address] Care Team Providers Name Role Phone Shannon Remy MD Primary Care Provider Encounter Details Date Type Department Care Team Description 07/02/2019 [place] [address] Social History Tobacco Use Types Packs/Day Years [...] Associated Diagnosis Comme nts SURGICAL PATHOLOGY Routine 07/02/2019 12:00 PM Re sults for this REPORT EDT procedure are i n the results section. documented in this encounter Results Surgical Pathology Report (07/02/2019 12:00 PM EDT) Component Value Ref Test Analysis Performed At [facility] Method Time Signature Surgical [id number] ? Location: [facility] Pathology MARTIN Report The signing pathologist has (i) examined the relevant preparation(s) for the [facility] specimen(s) and (ii) rendered or confirmed the diagnosis(es) . HOSPITAL LABORATORY . ?Surgic al Pathology DIAGNOSIS Skin, right parietal scalp, shave biopsy: - ??Hemangioma, ??present at the base of the biopsy specimen Electronically signed by: ??Sp BETHEA, PhD, Martin Verified: ??07/04/2019 ?Dermatopathologist Performed at: ??-[facility] Dept. of Pathology, [place], [place] CLINICAL INFORMATION Specimen Submitted: A - Skin, R parietal scalp, shave Clinical History and Diagnosis: Growing papule; nevus, adnexal tumor versus? Referring Identifier: ?(not provided) SPECIMEN PROCESSING A - Labeled/Fixative: Patient demographics, formalin. Quantity/Size: ??Single, 0.7 x 0.6 x 0.2 cm. Tissue Description: Shave of centrally nodular, pink-burgos ski n. Sections/Processing: Inked, bisected and entirely submitted in 1 cassette labeled A1. ??ejr Specimen (Source) Anatomical Collection Method Collection Time Re ceived Time Location / / Volume Laterality 07/02/2019 12:00 PM EDT Luke Myrick MD PATHOLOGY/CYTOLOGY ORDERABLE S Performing Organization Address City/State/ZIP Code Phon [place] [address] documented in this encounter Visit Diagnoses Not on filedocumented in this encounter Care Teams Automobile Mechanic Helper Relationship Specialty Start Date End Date Shannon Remy MD PCP - General General Internal Medicine 06/09/17 07/03/[address] [place] [address] documented as of this encounter
--- OUTSIDE RECORDS SUMMARY | 2022-08-26 01:48 | XMS_ITS | Encounter Summary ---
:1955 Author Organization [facility] [place] [address] Care Team Providers Name Role Phone Shannon Remy MD Primary Care Provider Reason for Visit Reason Onset Date Comments Pre Procedure Call 07/10/2018 Encounter Details Date Type Department Care Team Description 07/10/2018 Telephone Pain Management at [facility], [place] [phone] Social History Tobacco Use Types Packs/Day Years Used Date Never Smoker Smokeless Tobacco: Never Used Sex Assigned at Date Recorded Not on file documented as of this encounter Miscellaneous Notes Telephone Encounter - [facility], [place] - 07/10/2018 3:20 PM EDT Edwin Weiss :1955 Contact made with patient: I spoke to Mr. Weiss at 3:20 PM regarding his upcoming Neither cervical epidural steroid injection scheduled on 07/12/18 (date) scheduled at 2:15 (time) with Dr. Obed Alvarado MD. Medication and Allergy reconciliation: 1. Changes were made in the telephone encounter per patient; marked as reviewed, and closed. 2. Patient confirmed no IVP dye allergy. 3. Have you had any steroid injections anywhere in your body within the last two weeks? no Arrival time: The patient was instructed to arrive at 1:45 (30 minutes prior to procedure start time - 60 minutes prior for RF patients with a pacemaker) on 07/12/18 (date of procedure). Orchestra Leader: The patient was reminded that they need to have a wedding transportation driver accompany them to his procedure who will remain onsite. Antibiotics/Skin assessment/Illness symptoms/Pain level assessment : 1. The patient confirmed that he is not taking antibiotics at this time. 2. The patient confirmed that he does not have any rashes, blisters, or skin breakdown on their body. 3. The patient confirmed that he does not have any active infections. 4. The patient confirmed that he does not have any symptoms of illness: fever, chills, cold, flu, nausea, vomiting. 5. The patient confirmed that he isstill experiencing significant pain. (Significant pain is definedas interfering with performing ADL.) Pain and Anti-anxiety Medications: 1. Nerve Block Procedure Patients: Patient was instructed NOT to take their pain medications on the day of the procedure and anti-anxiety medications are part of their daily medication regiment; they can and should continue taking that medication. 2. All Other Procedure Patients: The patient was instructed that if they take daily pain or anti-anxiety medications, they can and should continue taking on the day of the procedure. Does patient have history of any diagnosed bleeding disorders: No Anticoagulants: No NSAIDs: Does the patient take Aspirin/ASA? Yes 325 The patient confirmed that he discontinued taking Aspirin on 06/30/18 (date). Does the patient take an NSAID? No Diabetic instructions: Patient was advised to inform their PCP regarding safe fasting and the NPO requirements for their upcoming procedure and given the Pain Management Center Nurse Triage Line . Implant: Patient has pacemaker/defibrillator: No Prior to checking in at [facility], please be sure to empty your bladder. Patient confirmed understanding that if they do not follow the above their instructions, their procedure is likely to be cancelled. JARETT Weaver documented in this encounter Plan of Treatment Not on filedocumented as of this encounter Visit Diagnoses Not on filedocumented in this encounter Care Teams Retail Merchandising Manager Relationship Specialty Start Date End Date Shannon Remy MD PCP - General General Internal Medicine 06/09/17 07/03/[address] [place] [address] documented as of this encounter
--- OUTSIDE RECORDS SUMMARY | 2022-08-26 01:48 | XMS_ITS | Encounter Summary ---
:1955 Author Organization [facility] [place] [address] Care Team Providers Name Role Phone Julius Antonio MD Primary Care Provider [phone] Reason for Visit Reason Comments Neck Pain Encounter Details Date Type Department Care Team Description 03/30/2015 Office Visit [facility] at [facility], [facility] Radiculopathy [facility] Julius Antonio MD [address] [place] [address] [place] [phone] Social History Tobacco Use Types Packs/Day Years Used Date Never Smoker Smokeless Tobacco: Never Used Sex Assigned at Date Recorded Not on file documented as of this encounter Progress Notes Collette Cabrera PT - 03/30/2015 3:22 PM EDT Spine Center Physical Therapy Note Referring provider: Raymond Beavers M.D. Diagnosis: 1. Radiculopathy of cervical region 2. Disc osteophyte complex C4-C5, C5-C6, and C6-C7 Date of onset: August 2014 Work Status: [employer]; at work Subjective: Mr. Weiss reports in [...] but less so than in the past. A towel roll tucked inside the pillowcase has been helpful in making him able to sleep better. Objective: Mr. Weiss returns today for a scheduled follow up appointment. He 's about in the examroom without difficulty and appears comfortable while seated. Sitting and standing posture is good. Active range of motion of the cervical spine is limited to 50?? flexion, 30?? extension, 50?? right rotation, 50?? left rotation, 30?? right sidebending, and 30?? left sidebending. End range extension, bilateral rotation, and right sidebending worsens the pain. Repeated movement testing of the cervicalspine didn't seem to suggest a directional preference toward retraction. Treatment Received: Discussed the natural history of neck and arm pain in the context of underlying degenerative changes and the rational for exercise based treatment. Patient Education/ Home Exercise Program: Reviewed and modified Mr. Weiss 's home exercise program. The home exercise program now includes cervical retraction with or without overpressure 6-8 times per day. He will continue [...] look up without discomfort Plan: Follow up on Monday to reassess and progress the home exercise [...] nos documented in this encounter Care Teams Stone Gang Sawyer Relationship Specialty Start Date End Date Julius Antonio MD PCP - General 09/21/10 04/03/[address] [place] [address] documented as of this encounter
--- OUTSIDE RECORDS SUMMARY | 2022-08-26 01:48 | XMS_ITS | Encounter Summary ---
:1955 Author Organization [facility] Address [place] [id number] Care Team Providers Name Role Phone Julius Antonio MD Primary Care Provider Reason for Visit Reason Comments Skin Check Skin Lesion Encounter Details Date Type Department Care Team Description 07/16/2015 Office Visit Dermatology at Luke Myrick, History of SCC (squamous cell carcinoma) of skin; Kristin BETHEA Verruca vulgaris [address] Eren B DERMATOLOGY [place], [place] [id number] [phone] Social History Tobacco Use Types Packs/Day Years Used Date Never Smoker Smokeless Tobacco: Never Used Sex Assigned at Date Recorded Not on file documented as of this encounter Patient Instructions Patient InstructionsLibra Dias LPN - 07/16/2015 2:55 PM EDT Images from the original note were not included. [facility] Skin Lesions: After Your Visit Your Care Instructions A skin lesion is a general term used for the different types of bumps, spots, moles or other growthsthat may appear on your skin. Most skin lesions are harmless, but sometimes they can be a sign of skin cancer or other health problems. Depending on what type of lesion you have, your doctor may cut out all or a small area of the skin tissue and send it to a lab to be looked at under a microscope. This is called a biopsy. A biopsy may be done to figure out what the lesion is or to make sure it is not skin cancer. Follow-up care is a barbosa part of your treatment and safety. Be sure to make and go to all appointments, and call your doctor if you are having problems. It's also a good idea to know your test results and keep a list of the medicines you take. How can you care for yourself at home? ?? If your doctor removed or biopsied a skin lesion, keep the wound bandaged and dry for the first day. ?? After the first day, clean the wound with soap and water 2 times a day unless your doctor gives you different instructions. Don't use hydrogen peroxide or alcohol, which can slow healing. ?? You may cover the wound with a thin layer of petroleum jelly, such as Vaseline, and a nonstick bandage. ?? If you have stitches, you may get other instructions. You will have to return to have the stitches removed. ?? If a scab forms, do not pull it off. Let it fall off on its own. Wounds heal faster if no scab forms. Washing the area every day and using the ointment will help keep a scab from forming. ?? If the wound bleeds, put direct pressure on it with a clean cloth until the bleeding stops. ?? Take an [id number] pain medicine, such as acetaminophen (Tylenol), ibuprofen (Advil, Motrin), or naproxen (Aleve). Read and follow all instructions on the label. ?? Do not take two or more pain medicines at the same time unless the doctor told you to. Many pain medicines have acetaminophen, which is Tylenol. Too much acetaminophen (Tylenol) can be harmful. ?? If you had a growth frozen off with liquid nitrogen, you may get a blister. Do not break it. Let it dry up on its own. It is common for the blister to fill with blood. You do not need to do anything about this, but if it becomes too painful, call your doctor. When should you call for help? Call your doctor now or seek immediate medical care if: ?? You have signs of infection, such as: ?? Increased pain, swelling, warmth, or redness. ?? Red streaks leading from the wound. ?? Pus draining from the wound. ?? A fever. ?? The wound is bleeding a lot, and direct pressure does not stop it. Watch closely for changes in your health, and be sure to contact your doctor if: ?? You do not get better after 2 weeks of home care. Where can you learn more? Visit our health information library at [email or web address] Eighto You can also view health information on [employer], your personal patient account. Log in or sign up today. Enter E372 in the search box to learn more about Skin Lesions: After Your Visit. ?? [id number] [employer]. Care instructions adapted under license by [facility]. This care instruction is for use with your licensed healthcare professional. If you have questionsabout a medical condition or this instruction, always ask your healthcare professional. [employer] disclaims any warranty or liability for your use of this information. Content Version: 10.4.851834; Current as of: January 08, 2014 documented in this encounter Progress Notes Luke Myrick MD - 07/16/2015 3:12 PM EDT Problem: 1. Repeat skin check. 2. New skin lesion of concern. 3. History of SCCA, right conchal bowl, April 2003. Edwin follows up and is doing well. He is concerned about some new lesion. His is sure that he uses sunscreen when they are out on their boat or out camping. He still gets quite a dark burgos. He has had a lesion behind his left knee that is often rubbed and irritated, does not heal and go away. He also has some other spots he would like me to check. Physical examination reveals a pleasant now 60-year-old gentleman who has a verruca vulgaris on the left popliteal fossa. He has a dermatofibroma on the left medial knee. 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 Fortunately, careful examination of the head and the neck, the chest, the back, hands, arms, forearms, thighs, and calves is otherwise benign. There is no evidence of any malignant or premalignant lesions. Assessment and Plan: 1. Verruca vulgaris. a. LN2 times two applied to single site. 2. Benign skin examination, rodriguez red hemangiomas/dermatofibromas. a. Patient reassured. b. No treatment necessary. c. Recommend return to clinic here p.r.n. for new lesions/concerns. d. Encouraged him to continue use of sunscreen when out of doors, as his is insistent upon. Return to clinic here p.r.n. at the patient's request or that of Dr. Antonio. COPY: Julius Antonio M.D. documented in this encounter Plan of Treatment Not on filedocumented as of this encounter Visit Diagnoses Diagnosis History of SCC (squamous cell carcinoma) of skin Personal history of other malignant neop lasm of skin Verruca vulgaris Viral warts, unspecified documented in this encounter Care Teams Support Worker Relationship Specialty Start Date End Date Julius Antonio MD PCP - General 09/21/10 04/03/[address] [place] [address] documented as of this encounter
--- OUTSIDE RECORDS SUMMARY | 2022-08-26 01:48 | XMS_ITS | Encounter Summary ---
:1955 Author Organization [facility] [place] [address] Care Team Providers Name Role Phone Shannon Remy MD Primary Care Provider Reason for Visit Reason Comments Follow-up right index cyst Encounter Details Date Type Department Care Team Description 11/21/2018 Office Visit Plastic Surgery at [facility] s cyst of finger [facility] [address] MD Govind [address] [place] [address] PLASTIC SURGERY [phone] [place] [address] Social History Tobacco Use Types Packs/Day Years Used Date Never Smoker Smokeless Tobacco: Never Used Sex Assigned at Date Recorded Not on file documented as of this encounter Patient Instructions Patient InstructionsHazel Coffman RMA - 11/21/2018 3:45 PM EST You were given written and verbal preoperative instructions today. To prepare for your upcoming surgery, please review the Pre-Operative Instruction brochure that you were given at today's appointment. Remember to do the pre op wash as instructed, remove all jewelry, and wear clothing that is easy to get in and out of. There is no dietary restriction. You may eat and drink up until the time of your procedure. Feel free to call our office [phone] if you have any questions or concerns. We monitor the phones from 8-5 Monday through Monday. documented in this encounter Progress Notes [facility] MD - 11/21/2018 3:45 PM EST Plastic Surgery Post Op Note Reason for visit: F/U status post procedure Date of surgery: 07/27/17 Procedure(s): Excision right index mucous cyst Complications: None reported HPI: Pt reports the cyst of his right index finger returned approximately 3-4 months ago. Examination: Patient is alert, conversant, comfortable, ambulating Incision: CDI, healed well, recurrent 1cm dorsal mass at PIP c/w ganglion as before No collection, no erythema, no evidence of cellulitis. FROM of finger, finger n/v intact. Impression: Edwin Weiss is a 63 y.o. male who was seen today for follow-up after the above procedure. His cyst has recurred in the same location. I do not suspect a steroid injection will be effective at reducing the size of this cyst given its larger size. Plan: XR right hand prior to surgery Surgical scheduling for right index finger cyst excision I, Mily Childs, have performed the documentation for this encounter in the presence of and acting as a scribe for [facility] MD. I performed the services which were documented by the scribe, and I agree with the accuracy of the documentation in this encounter. [facility] MD documented in this encounter Plan of Treatment Not on filedocumented as of this encounter Results XR Hand Min 3 [...] Diagnosis Mucous cyst of finger Sebaceous cyst Mucous cyst of finger Sebaceous cyst documented in this encounter Care Teams Loan Approver Relationship Specialty Start Date End Date Shannon Remy MD PCP - General General Internal Medicine 06/09/17 07/03/[address] [place] [address] documented as of this encounter
--- OUTSIDE RECORDS SUMMARY | 2022-08-26 01:48 | XMS_ITS | Encounter Summary ---
:1955 Author Organization [facility] [place] [address] Care Team Providers Name Role Phone Shannon Remy MD Primary Care Provider Reason for Visit Reason Comments Procedure exc digital mucous cyst righ t index finger Surgical (Routine) - Closed Specialty Diagnoses / Procedures Referred By Contact Refer red To Contact Plastic Surgery Diagnoses EXC DIGITAL MUCOUS CYST cpt: [phone] Shannon Remy MD Matthew, Michael K, MD Procedures PRO EXC SKIN BENIG 1.1-2CM FACE, FACIAL PROCEDURE [address] [facility] [address] [place] PLASTIC SUR[facility] [place] [address] [place] [address] Fax: Referral ID Status Reason Start Date Expiration Date Visits Requ ested Visits Authorized [id number] Closed 07/27/2017 07/27/2018 1 1 Encounter Details Date Type Department Care Team Description 07/27/2017 Procedure visit [facility]astic Surgery at [facility] coustefani cyst of finger [facility] MD Govind [facility] [address] [place] [facility] [address] [place] [address] [phone] Social History Tobacco Use Types Packs/Day Years Used Date Never Smoker Smokeless Tobacco: Never Used Sex Assigned at Date Recorded Not on file documented as of this encounter Patient Instructions Patient InstructionsVoight-Hazel Gallo Ziyad - 07/27/2017 3:00 PM EDT The healing process is different for each [...] or soak in a tub of water. Keep surgery site elevated as much as possible for several days. Protect your incision from the sun for at least 6 months. Medication: Take regular or extra strength Tylenol [...] or after office hours:Call and ask the spot machine operator to page the plastic surgeon char conveyor tender cellar. . Prescription Line: Call the line at from 8am-4pm Monday through Monday. Narcotic renewals will not be honored after hours or on weekends. Make your request a few days before you run out as it may take up to 24 hours for physician approval. documented in this encounter Progress Notes Hazel Coffman RMA - 07/27/2017 3:00 PM EDT Plastic Surgery Minor Worksheet Surgery: Right index mass removal Skin Prep: Chlorhaprep Cautery Unit: MNS 1 [id number] Bipolar Settings: Coa Cuttin Tornicot Site: Right index Xylocaine Plain: 8.0 cc Prescription: none Post op instructions: See AVS documented in this encounter Procedure Notes [facility] MD - 07/27/2017 3:00 PM EDTAssociated Order(s): EXCIS BENIGN FACE,EARS,EYELIDS,NOSE,LIPS(MSO) Procedure Note Plastic Surgery Procedure: Excision lesion 1 cm with simple closure 1 cm Anatomic Location: Right index finger Pre-op diagnosis: Finger mass Consent: Written from patient after discussion of risks and benefits. I have reviewed the risks, benefits and alternatives to the surgical management of excision of lesion including infection, bleeding, recurrence, nerve injury, identification of malignancy need for treatment with steroids and scar revision. All issues were discussed and the patients understanding this wishes to proceed. Physicians: Cas Whitney M.D. Anesthesia: Local with lidocaine 1% with epi in digital block Description: After anesthesia was provided, the site was prepped and draped in sterile fashion. A finger tourniquet was placed. A curvilinear incision over the dorsum of the PIP joint was made and the underlying cyst dissected free form the skin, the mass was adherent to the extensor tenosynovium and once released release a mucinous clear fluid c/w joint fluid. No significant communication to the PIPjoint was noted. The finger tourniquet was released, hemostasis obtained with bipolar and the skin closed with 4-0 chromic sutures and a sterile dressing applied. Specimens: none Complications: none immediate EBL: 3 cc Disposition: Pt. tolerated the procedure well. After the procedure, the patient was discharged home. documented in this encounter Plan of Treatment Not on filedocumented as of this encounter Procedures Procedure Name Priority Date/Time Associated Diagnosis Comme nts EXCISION BENIGN Routine 07/27/2017 3:28 PM Result s for this FACE, EARS, EDT procedure are i n EYELIDS, NOSE, LIPS the resu lts section. documented in this encounter Results ExcisBen Les(Face/ear/eyld/nse/lip)(MSO) (07/27/2017 3:28 PM EDT) Narrative Cas Whitney MD - 07/27/2017 3:28 PM EDT [facility] MD ? 07/27/2017 ??3:28 PM Procedure Note Plastic Surgery Procedure: Excision lesion 1 cm with sim ple closure 1 cm Anatomic Location: Right index finger Pre-op diagnosis: Finger mass Consent: Written from patient after disc ussion of risks and benefits. I have reviewed the risks, benefits and alternatives to the surgical management of excision of lesio n including infection, bleeding, recurrence, nerve injury, iden tification of malignancy need for treatment with steroids and sca r revision. All issues were discussed and the patients understa nding this wishes to proceed. Physicians: Cas Whitney M.D. Anesthesia: Local with lidocaine 1% with epi in digital block Description: After anesthesia was provid ed, the site was prepped and draped in sterile fashion. ??A finge r tourniquet was placed. ?? A curvilinear incision over the dorsum o f the PIP joint was made and the underlying cyst dissected free f orm the skin, the mass was adherent to the extensor tenosynoviu m and once released release a mucinous clear fluid c/w joint fluid. ??No significant communication to the PIP joint was noted . ??The finger tourniquet was released, hemostasis obtained with b ipolar and the skin closed with 4-[address] and a [address] erile dressing applied. Specimens: none Complications: none immediate EBL: 3 cc Disposition: Pt. tolerated the procedure well. After the procedure, the patient was discharged ho ny. [facility] MD DERM PROCEDURE ORDERABLES documented in this encounter Visit Diagnoses Diagnosis Mucous cyst of finger Sebaceous cyst documented in this encounter Care Teams News Content Specialist Relationship Specialty Start Date End Date Shannon Remy MD PCP - General General Internal Medicine 06/09/17 07/03/[address] [place] [address] documented as of this encounter
--- OUTSIDE RECORDS SUMMARY | 2022-08-26 01:50 | XMS_ITS | Encounter Summary ---
:1955 Author Organization [facility] Address [address] [place] [address] Care Team Providers Name Role Phone Unavailable Primary Care Provider Unavailable Encounter Details Date Type Department Care Team Description 01/01/2010 Results Only [facility] Kirk Spencer MD Laboratory Services - [facility] [address] [place] [address] [address] [place] [address] Social History Tobacco Use Types Packs/Day Years Used Date Never Assessed Sex Assigned at Date Recorded Not on file documented as of this encounter Plan of Treatment Not on filedocumented as of this encounter Procedures Procedure Name Priority Date/Time Associated Diagnosis Comme [facility] SURGICAL PATHOLOGY Routine 01/01/2010 0:00 EST Re sults for this procedure are i n the results section. documented in this encounter Results SURGICAL PATHOLOGY (01/01/2010 0:00 EST) Pathology Report: SURGICAL PATHOLOGY REPORT ? [facility] Reports generated via electr KiteDesk interface contain original data; ? LAB however they are lacking the format of the original report. ? Caution should be taken when reading/interpreting unformatted reports. ? Name: ? LEITHEAD, EDWIN ? Accession #: ? [id number] ? : ? 1955 (Age: 54) ??M ? Collec t Date: ? 01/01/2010 ? Location: ? [facility] ? R eceive Date: ? 01/01/2010 ? Provider: SREEDHAR GARCIA SON DO ? Copy to: STEVEN OLMEDO MD ? Final Pathologic Diagnosis: ? A. ?Colon, sigm oid, biopsy: ? 1. ?Colonic muc rios with no specific pathologic features. ??See comment. ?? B. ?Rectum, bio psy: ? 1. ?Colorectal mucosa with no pathologic features. ? Comment: ? Sections of the sigmo id show very rare acute inflammatory cells associated with the epithelium, the cli nical significance of which is uncertain and may be related to bowel prep effect . ??No features of chronicity are seen. (. ? Butnor)/mpl ? Document reviewed and electr onically signed by: ? DARLEEN Fernandez BUTNOR MD ? Report ??Date: 01/05/2010 14 :30 ? By the signature above, the attending physician certifies that he/she has ? personally conducted a gross and/or microscopic examination of the described ? specimens and rendered or co nfirmed the above diagnosis. ? Specimen(s) Received: ? A. ?Bx sigmoid ? B. ? Bx rectum ? Clinical History: ? Hx of diverticulitis ? Gross Description: ? Received in Hollande' s fixative labelled Leithead, Edwin and bx sigmoid are three pieces of tissue w hich range from 0.3 x 0.3 x 0.2 cm to 0.2 x 0.2 x ?? 0.1 cm, which are submitted intact as (A). ? Received in Aryan's fixat gibson labelled Leithead, Edwin and bx rectum are ?? two pieces of tissue which m easure 0.2 x 0.2 x 0.2 cm which are submitted intact as (B). ??(J. Tessitorphill)/mpl ? End of Report ? Specimen Performing Organization Address City/State/ZIP Code Phon e Number [facility] [address] [place] [address] SERVICES [facility] [address] [place] [address] documented in this encounter Visit Diagnoses Not on filedocumented in this encounter
--- OUTSIDE RECORDS SUMMARY | 2022-08-26 01:50 | XMS_ITS | Encounter Summary ---
:1955 Author Organization [facility] Address [address] [place] [address] Care Team Providers Name Role Phone Julius Antonio MD Primary Care Provider [phone] Encounter Details Date Type Department Care Team Description 09/07/2019 Lab Requisition [facility] Stephanie Duval for other Pathology & E, DYE RANGE OPERATOR general examination Laboratory Medicine - [address] [place] [address] [address] [place] [phone] Social History Tobacco Use Types Packs/Day Years Used Date Never Assessed Sex Assigned at Date Recorded Not on file documented as of this encounter Plan of Treatment Not on filedocumented as of this encounter Procedures Procedure Name Priority Date/Time Associated Diagnosis Comme nts SURGICAL PATHOLOGY Today 09/06/2019 15:15 Encounter for othe r Results for this EST general examination procedur e are in the results section. documented in this encounter Results SURGICAL PATHOLOGY (09/06/2019 15:15 EST) Final Diagnosis A. SKIN OF BACK, RIGHT LOW, BIOPSY: [facility] Electronically - Pyogenic granuloma. CENTER signed by CONY Rasmussen M D on SERVICES 09/10/2019 at 1 010 Microscopic There is a papule [facility] [[email or web address] MEDICAL Description formed by a dermal CENTER proliferation of LABORATORY vascular channels SERVICES associated with an edematous and inflamed stroma. The vessels are lined by hypertrophic endothelial cells and there is mural swelling. The overlying epidermis is centrally ulcerated but forms a collarette at the periphery of the papule. Clinical History Skin tag versus nevus got ir ritated and started to detach and bleed and would not stop bleeding was removed with scissors; skin tag/nevus removal with scissors; was located right low back. [facility] SERVICES Attestation By the signature [facility] [[email or web address] MEDICAL Electronica lly below, the attending CENTER signed by Grady, physician certifies LABORATORY Tania Wilburn MD on that they have SERVICES 09/10/2019 at 1010 personally conducted a gross and/or microscopic examination of the described specimens and rendered or confirmed the above diagnosis. Gross Description A. Received in formalin labe lled with proper patient identification (initials L, G) and skin/back is a shave biopsy of an irregularly burgos-brown slightly crusted papule (0.9 x 0.5 x 0.1 cm). The margin is inked blue. Bisected and submitted in A1. [facility] MIHRAB ALI 09/09/2019 08:51 LABORATORY SERVICES Scanned Images [facility] SERVICES Specimen Tissue - Skin (tissue) specimen (specime n) Performing Organization Address City/State/ZIP Code Phon e Number [facility] [address] [place] [address] SERVICES documented in this encounter Visit Diagnoses Diagnosis Encounter for other general examination documented in this encounter Care Teams Firefighter Relationship Specialty Start Date End Date Julius Antonio MD PCP - General 01/04/[address] [place] [phone] documented as of this encounter
--- OUTSIDE RECORDS SUMMARY | 2022-08-26 01:50 | XMS_ITS | Encounter Summary ---
:1955 Author Organization [facility] Address [address] [place] [address] Care Team Providers Name Role Phone Julius Antonio MD Primary Care Provider Encounter Details Date Type Department Care Team Description 12/30/2019 Lab Requisition [facility] Haydee Amaral for Pathology & MD Mike screening for Laboratory Medicine [address] malignant neoplasm - [place], [place] of colon [address] [facility] [address] [place], [place] [address] Social History Tobacco Use Types Packs/Day Years Used Date Never Assessed Sex Assigned at Date Recorded Not on file documented as of this encounter Plan of Treatment Not on filedocumented as of this encounter Procedures Procedure Name Priority Date/Time Associated Diagnosis Comme [facility] SURGICAL PATHOLOGY Today 12/30/2019 7:34 EST Encounter for R esults for this screening for procedure are in malignant neoplasm the resul ts of colon section. documented in this encounter Results SURGICAL PATHOLOGY (12/30/2019 7:34 EST) Final Diagnosis A. COLON, CECUM, POLYP X3, BIOPSY: [facility] MEDICAL Electronically - Tubular adenomas. CENTER signed b CONY Melendrez MD on B. COLON, ASCENDING, POLYP, BIOPSY: SERVI GONZALEZ 12/31/2019 at 1242 - Fragments of sessile serrated adenoma. C. COLON, DESCENDING, POLYP, BIOPSY: - Tubular adenoma. D. COLON, SIGMOID, POLYP, BIOPSY: - Hyperplastic polyp. E. RECTUM, POLYP, BIOPSY: - Hyperplastic polyp. Clinical History Abnormal CT scan/screening [facility] SERVICES Attestation By the signature [facility] lly below, the attending CENTER signed by Hipolito Leon, physician certifies LABORATORY Lloyd Faust MD on that they have 1) SERVICES 12/31/2019 a t 1242 personally conducted a gross and/or microscopic examination of the described specimen(s), and/or personally interpreted the results of laboratory testing of the described specimen(s), and 2) personally rendered or confirmed the above diagnosis. Gross Description A. Received in formalin labe lled with proper patient identification (initials L, G) and cecal polyp are multiple fragments of burgos tissue, each measuring 0.2 x 0.2 x 0.2 cm. The specimens are submitted entirely in A 1-A2. [facility] B. Received in formalin labe lled with proper patient identification (initials L, G) and ascending colon polyp is an aggregate of polypoid tissue (0.6 x 0.5 x 0.2 cm). The specimen is submitted entirely in B 1-B2. LAB ORATORY SERVICES C. Received in formalin labe lled with proper patient identification (initials L, G) and descending colon polyp are 2 fragments of burgos tissue; each measuring 0.3 x 0.2 x 0.2 cm. The specimens are submitted entirely in C1. D. Received in formalin labe lled with proper patient identification (initials L, G) and sigmoid colon polyp is a single fragment of burgos tissue (0.2 x 0.2 x 0.2 cm). The specimen is submitted entirely in D1. E.Received in formalin label led with proper patient identification (initials L, G) and rectum polyp is a single fragment of burgos tissue (0.3 x 0.2 x 0.1 cm). The specimen is submitted entirely in E1. 12/30/2019 17:23 Scanned Images [facility] SERVICES Specimen Tissue - Specimen from rectum (specimen) Tissue specimen (specimen) - Ascending c olon structure (body structure) Tissue specimen (specimen) - Descending colon structure (body structure) Tissue specimen (specimen) - Entire sigm oid colon (body structure) Tissue specimen (specimen) - Specimen fr om rectum (specimen) Performing Organization Address City/State/ZIP Code Phon e Number [facility] [address] [place] [address] SERVICES documented in this encounter Visit Diagnoses Diagnosis Encounter for screening for malignant ne oplasm of colon Special screening for malignant neoplasm s, colon documented in this encounter Care Teams Selling Specialist Relationship Specialty Start Date End Date Julius Antonio MD PCP - General 01/04/10 [address] [place] [phone] documented as of this encounter
--- OUTSIDE RECORDS SUMMARY | 2022-08-26 01:50 | XMS_ITS | Clinical Summary ---
:1955 Author Organization [facility] Address [address] [place] [address] Care Team Providers Name Role Phone Julius Antonio MD Primary Care Provider [phone] Social History Tobacco Use Types Packs/Day Years Used Date Never Assessed Sex Assigned at Date Recorded Not on file Plan of Treatment Health Maintenance Due Date Last Done Comments Hepatitis C Screen 1955 COVID-19 Vaccine (#1) 1960 Fall Risk Screening 2020 Care Teams Evp And Chief Operating Officer Relationship Specialty Start Date End Date Julius Antonio MD PCP - General 01/04/10 [address] [place] [phone]
--- OUTSIDE RECORDS SUMMARY | 2022-08-26 01:50 | XMS_ITS | Encounter Summary ---
:1955 Author Organization [facility] Address [address] [place] [address] Care Team Providers Name Role Phone Julius Olmedo MD Primary Care Provider [phone] Encounter Details Date Type Department Care Team Description 10/13/2003 Results Only [facility] - Katharina Louis MD conversion [address] [place], [place] [id number] [place] [address] [id number] [phone] Social History Tobacco Use Types Packs/Day Years Used Date Never Assessed Sex Assigned at Date Recorded Not on file documented as of this encounter Plan of Treatment Not on filedocumented as of this encounter Procedures Procedure Name Priority Date/Time Associated Diagnosis Comme nts SURGICAL PATHOLOGY Routine 10/13/2003 0:00 EST Re sults for this procedure are i n the results section. documented in this encounter Results SURGICAL PATHOLOGY (10/13/2003 0:00 EST) Pathology Report: SURGICAL PATHOLOGY REPORT NAVA HUYNH Reports generated via electronic interface contain ba ginal data; LAB however they are lacking the format of the original re port. Caution should be taken when reading/interpreting unfo rmatted reports. Name: ? EDWIN HOOD ? Accession #: ? [id number] ? : ? 1955 (Age: 48) ??M ? Collect Date: ? 10/13/2003 ? Location: ? [facility] ? Receive Date: ? 003 ? Provider: KATHARINA DIETRICH MD Copy to: JULIUS OMLEDO MD ? Final Pathologic Diagnosis: A. ?Tonsil, right, tonsillectomy: 1. ?Tonsil with reactive follicular hyper plasia. 2. 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 B. ?Tonsil, left, tonsillectomy: 1. ? Tonsil with reactive follicular hype rplasia. 2. 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 C. ?Uvula, uvulectomy: 1. ?Uvula with no significant histopathol ogic features. 2. ?Negative for malignancy. Document reviewed and electronically signed by: DARLEEN FRANCES MD Report ??Date: 10/16/2003 18:13 By the signature above, the attending physician certif ies that he/she has personally conducted a gross and/or microscopic examin ation of the described specimens and rendered or confirmed the above diagnosi s. Specimen(s) Received: A. ?Right tonsil B. ?Left tonsil C. ?Uvula Clinical History: ? UPPP & tonsillectomy Gross Description: ? Received in formalin labeled Leithead and right tonsil is a burgos-pink ovoid unoriented 2.3 x 1.5 x 1.2 cm soft tissue surfac ed by a burgos smooth to wrinkled mucosa. ??Upon sectioning, the cut surfaces a re burgos-pink with an unremarkable crypt-like arch itecture. ??A client relations representative section is submitted as (A). Received in formalin labeled Leithead and lef t tonsil is a burgos-pink ovoid unoriented 2.4 x 1.8 x 1.2 cm soft tissu e surfaced by a burgos-smooth to wrinkled mucosa. ??Upon sectioning, the cut surfaces are burgos-pink with an unremarkable crypt-like architecture. ??A client relations representative section is submitted as (B). Received in formalin labeled Leithead and uvu la is a burgos-white triangular 2.0 x 1.5 x 0.8 cm soft tissue surfaced by a burgos thomas h to wrinkled mucosa. Upon sectioning, the cut natalya faces are burgos-white and homogeneous. The specimen is longitudinally bisected and entirely submitted as (C). ??(Quinn Spaulding)/[facility] End of Report Specimen Performing Organization Address City/State/ZIP Code Phon e Number [facility] [address] [place] [address] SERVICES [facility] [address] [place] [address] documented in this encounter Visit Diagnoses Not on filedocumented in this encounter Care Teams Production Designer Relationship Specialty Start Date End Date Julius Olmedo MD PCP - General 01/04/[address] [place] [address] [phone] documented as of this encounter
--- OUTSIDE RECORDS SUMMARY | 2022-08-26 01:50 | XMS_ITS | Encounter Summary ---
:1955 Author Organization [facility] Address [address] [place] [address] Care Team Providers Name Role Phone Julius Antonio MD Primary Care Provider [phone] Encounter Details Date Type Department Care Team Description 10/20/2021 Lab Requisition [facility] Outr Resulting Lab, Pathology & Laboratory Provider [facility] [address] [place] [id number] Social History Tobacco Use Types Packs/Day Years Used Date Never Assessed Sex Assigned at Date Recorded Not on file documented as of this encounter Plan of Treatment Not on filedocumented as of this encounter Procedures Procedure Name Priority Date/Time Associated Comments Diagnosis PSA TOTAL, Routine 10/19/2021 11:30 Results for this DIAGNOSTIC EST procedure are i n the results section. documented in this encounter Results (ABNORMAL) PSA TOTAL, DIAGNOSTIC (10/19/2021 11:30 EST) Pathologist Sig nature PSA 6.3 (H) 0.0 - 4.5 ng/mL [facility] Specimen Blood - Venous blood (substance) Narrative [facility] - 10/20/2021 17:55 EST NOTE: Serum PSA concentration should not be in terpreted as absolute evidence for the presence or absence of malignant disease. Assayed on Siemens ADVIA Centaur XPT usi ng chemiluminescent technology.??Values obtained by using different assay methods cannot be used interchangeably. Performing Organization Address City/State/ZIP Code Phon e Number [facility] [address] [place] [address] SERVICES documented in this encounter Visit Diagnoses Not on filedocumented in this encounter Care Teams Commission Clerk Relationship Specialty Start Date End Date Julius Antonio MD PCP - General 01/04/10 [address] [place] [phone] documented as of this encounter
[2022-08-26 07:55] LABS: HCT 44.6 % (40.0-50.0); HGB 14.9 g/dL (13.5-17.5); MCH 31.8 pg (27.0-33.0); MCHC 33.4 % (32.0-36.0); MCV 95 fL (80-95); MPV 9.8 fL (8.0-11.0); Platelet Count 269 10^3/uL (130-400); RBC 4.68 10^6/uL (4.36-5.78); RDW 12.1 % (11.8-14.1); WBC 7.46 10^3/uL (4.4-10.8)
[2022-08-26 08:46] LABS: ALT 24 U/L (16-63); AST 16 U/L (15-37); Albumin 3.9 g/dL (3.4-5.0); Alkaline Phosphatase 70 U/L (46-116); Anion Gap 6.8 mmol/L (3-11); BUN 27 mg/dL (7-18); Bilirubin, Total 0.7 mg/dL (0.2-1.0); CO2 28.2 mmol/L (21.0-32.0); CREATININE 1.1 mg/dL (0.70-1.30); Calculated LDL 92 mg/dL (<100); Chloride 104 mmol/L (98-107); Cholesterol 144 mg/dL (<200); Estimated GFR 73.58 (mL/min/1.73m2); Glucose 94 mg/dL (74-106); HDL Cholesterol 43 mg/dL (40-60); Potassium 4.1 mmol/L (3.5-5.1); Sodium 139 mmol/L (136-145); Total Protein 7.1 g/dL (6.4-8.2); Triglyceride 45 mg/dL (<150)
== END 2022-08-26 01:46 | disposition home or self-care (01) ==
LOC: LBO 01:45
PROVIDERS: PCP Nurse Practitioner; Visit Provider Nurse Practitioner
DX: E78.00 Pure hypercholesterolemia, unspecified (principal)
CPT/HCPCS: 36415; 80053; 80061; 85027

== ENCOUNTER 2022-10-18 02:14 | Outpatient (CLI) | payer BC, SELFPAY ==
[2022-10-18 17:47] LABS: PSA, Diagnostic 6.8 ng/mL (<=4.5)
== END 2022-10-18 02:15 | disposition home or self-care (01) ==
LOC: LBO 02:14
PROVIDERS: PCP Nurse Practitioner; Visit Provider Nurse Practitioner Gerontology
DX: N40.0 Benign prostatic hyperplasia without lower urinary tract symptoms (principal); R97.20 Elevated prostate specific antigen [PSA]
CPT/HCPCS: 36415; 84153

== ENCOUNTER 2022-12-14 10:26 | Day surgery (SDC) | payer BC, SELFPAY ==
--- NOTE | 2022-12-14 10:36 | W.ANESPRE ---
General Info Date of Service Date Performed: 12/14/22 Height: 6 ft 3 in Weight: 103.419 kg Body Mass Index (BMI): 28.5 Surgical Procedure: Operation Date: 12/14/22 13:40 Proposed Procedure Side Surgeon p Wrist ECTR Right Devonte Root MD Meds Allergies and Home Medications Allergies Allergy/AdvReac Type Severity Reaction Status Date / Time No Known Allergies Allergy Verified 12/14/22 10:47 Home Medication Medication Instructions Recorded aspirin 81 mg tablet,delayed 81 mg PO DAILY #1 tab-cap 11/27/15 release (Aspir-) ibuprofen 600 mg tablet 600 mg PO QID PRN pain and 01/08/21 inflammation #60 tabs tamsulosin 0.4 mg capsule 0.4 mg PO DAILY #90 caps 08/22/22 simvastatin 40 mg tablet 40 mg PO DAILY #90 tabs 10/17/22 Current Visit Medications: Current Medications Generic Name Dose Route Start Last Admin Trade Name Freq PRN Reason Stop Dose Admin Ringer's Solution 1,000 mls @ 80 mls/hr 12/14/22 06:00 IV 01/12/23 23:59 INFUSION TORO Cefazolin Sodium/Dextrose 2 gm in 50 mls @ 100 mls/hr 12/14/22 06:00 Ancef Duplex IVPB 01/12/23 23:59 PREOP TORO IV Miscellaneous Supplies 1 each 12/14/22 06:00 Iv Access IV 01/12/23 23:59 DIRECTED TORO Sodium Chloride 0 ml 12/14/22 06:00 Normal Saline Flush 10 Ml Syr IV 01/12/23 23:59 PRN PRN Sodium Chloride 0 ml 12/14/22 06:00 Normal Saline 10 Ml Vial IJ 01/12/23 23:59 DIRECTED PRN Sterile Water 0 ml 12/14/22 06:00 Water,Injection,Sterile 10 Ml Vial IJ 01/12/23 23:59 DIRECTED PRN PFSH Active Problems Active Problems: Problem Status Onset Code Carpal tunnel syndrome of right wrist G56.01 Ganglion cyst of finger of right hand M67.441 Carpal tunnel syndrome 07/04/13 G56.00 Elevated PSA R97.20 Erectile dysfunction N52.9 Urinary hesitancy R39.11 BPH without obstruction/lower urinary tract symptoms 07/04/13 N40.0 Non-healing wound Numerous moles D22.9 Peters angioma D18.01 Seborrheic keratosis L82.1 Skin tag, acquired L91.8 Hypercholesterolemia 07/25/13 E78.00 Hammertoe of right foot M20.41 Ganglion of left hand M67.442 History of squamous cell carcinoma Z85.89 SCC (squamous cell carcinoma) C44.92 Wart B07.9 Verruca vulgaris B07.9 Tubular adenoma D36.9 Colorectal polyps K63.5 Medical History Medical History Abdominal pain Cervical radiculopathy (11/21/14) prob R C5, C6; epi steroid C7 [facility] 03/03/15 Diverticulitis Enteritis Erectile dysfunction (10/10/14) H/O seborrheic keratosis R lateral cheek-Dr Myrick Prehypertension (10/10/14) Medical History Comments:: Per pt. , stated years and years and years ago, he was told his throat would close up, but since having the UPPS surgery it no longer goes that. Pt. has had anesthesia here 12/2020 for Arthrodesis and did well/ Surgical History Surgical History (Updated 12/14/22 @ 10:46 by Florence Honeycutt, AV[facility]) Hernia, umbilical History of biopsy R parietal scalp 07/02/19-Dr Myrick History of uvulopalatopharyngoplasty Hx of elbow surgery States he had a detached muscle repaired. Hx of hammer toe correction december 2020 S/P colonoscopy (~12/30/19) Status post epidural steroid injection (07/12/18) Cervical epidural steroid injection [facility] Tobacco Smoking/Tobacco Use Status: Never Passive smoking exposure: No Second hand exposure: No Alcohol Alcohol Intake: current Alcohol intake frequency: 0-2 drinks per day Alcohol type: beer Substance Use Substance use: Never Substance use type: does not use Vital Signs and Lab Results Lab Results Blood Type / Crossmatch: No Data to Display Complete Blood Count: No Data to Display Complete Metabolic Panel: No Data to Display Liver Function Panel: No Data to Display Coagulation Panel: No Data to Display Cardiac Panel: No Data to Display Arterial Blood Gas: No Data to Display Venous Blood Gas: No Data to Display Pancreas Panel: No Data to Display Thyroid Panel: No Data to Display Infectious Disease: No Data to Display Blood Cultures: No Data to Display Toxicology Panel: No Data to Display Imaging and Studies Imaging and Studies Study information below may be from another EMR and interpreted by another provider. Please see original notes in EMR for more complete details. EKG Summary: (08/11/22) Sinus rhythm...normal P axis, V-rate 50- 99 Possible inferior infarct, old...Q >35mS, II III aVF Suspected chest leads reversed, V1 for V3 Anesthesia Assessment and Plan Anesthesia History Personal History: No History of Anesthesia Complications and Other Family History: No Family History of Anesthesia Complications Exercise Tolerance Exercise Tolerance: Metabolic Equivalents>4 Pertinent Negatives Pertinent Negatives: No Symptoms of GERD, No Major Cardiovascular Symptoms or Complaints, No Major Pulmonary Symptoms or Complaints and No History of CVA/TIA Cardiac & Pulmonary Exam Cardiac Exam: Normal S1/S2 Heart Sounds Pulmonary Exam: Clear Bilateral Breath Sounds Implantable Cardiac Device Does patient have a Pacemaker or an ICD?: No Airway Exam Known Difficult Airway: No Mallampati Class: 4 Mouth Opening: Normal (> 3cm) Thyromental Distance: Greater than 3 cm Neck Range of Motion: Limited ROM Neck Circumference: Normal Teeth Condition: Generalized Poor Dentition and Loose or Chipped (chipped front tooth- none loose ) ASA Classification ASA Score: ASA 2 Emergency Case?: No NPO Status NPO Status: NPO Clears >2 hours, Solids >8 hours Anesthesia Plan Resuscitation Status: Full Code Anesthesia Technique: MAC Anesthesia Airway Planned: Natural Airway Monitors Used: Standard Monitors
[2022-12-14 10:49] VITALS: BP 151/91; PULSE 72; RESP 18; TEMP 36.2; O2SAT 98
[2022-12-14] MEDS: Lactated Ringers 1,000 ML 80 ML IV (11:00)
[2022-12-14 11:25] VITALS: BMI 28.5
[2022-12-14] MEDS: ceFAZolin 2 GM/50 ML BAG IVPB (11:37)
[2022-12-14] MEDS: Lidocaine 1% Pres-Free W/EPI 1/200,000 10 ML VIAL (11:48)
[2022-12-14 12:04] VITALS: BP 123/89; PULSE 68; RESP 16; TEMP 36.4; O2SAT 96
--- NOTE | 2022-12-14 12:10 | W.PM.DSUDISC ---
Date of service: 12/14/22 Time of Service: 12:10 Discharge Plan Disposition Patient Disposition: Home Condition: Good Discharge Details Reason For Visit: R ECTR Attending Provider: Devonte Root Primary Care Provider: Sirena Eli Home Meds and New Rx's Prescriptions: New acetaminophen 500 mg tablet 1,000 mg PO TID Qty: 90 0RF hydrocodone-acetaminophen 5-325 mg tablet 1 tab PO Q6H PRN (Reason: pain) Qty: 4 0RF ibuprofen 600 mg tablet 600 mg PO TID PRN (Reason: pain) Qty: 90 0RF Continued aspirin [Aspir-81] 81 MG tablet,delayed release (DR/EC) 81 mg PO DAILY Qty: 1 tamsulosin 0.4 mg capsule 0.4 mg PO DAILY Qty: 90 3RF simvastatin 40 mg tablet 40 mg PO DAILY Qty: 90 3RF Discontinued ibuprofen 600 mg tablet 600 mg PO QID PRN (Reason: pain and inflammation) Qty: 60 1RF Discharge Instructions Stand Alone Forms: Anesthesia Discharge InstCaitie, Jenny Robb (DSU), Dk [place] Tunnel Release Activity:: Activity as Tolerated Remove Dressings/Wound Care:: 48 hours Shower/Bathe:: 48 hours Diet:: As Tolerated Discharge Orders Discharge Orders: Discharge Order (Routine); Ordered 12/14/22 Ordered By: Devin Marcelo DS: Diagnosis Discharge Diagnosis (1) Carpal tunnel syndrome of right wrist: Status: Acute
--- NOTE | 2022-12-14 12:13 | W.ANESPOSTOP ---
Postoperative Evaluation Date, Time and Location Date Performed: 12/14/22 Time Performed: 12:14 Patient Location: Day Surgery Unit Vital Signs Most Recent Imported Vital Signs: Most Recent Vital Signs Temp Pulse Resp BP Pulse Ox 36.4 C L 68 16 123/89 96 12/14/22 12:04 12/14/22 12:04 12/14/22 12:04 12/14/22 12:04 12/14/22 12:04 Pain Score Most Recent Pain Score: Most Recent Pain Score Pain Level 0 12/14/22 12:04 Assessment Mental Status: Awake (Alert & Oriented to Patient Baseline) Airway and Respiratory Function: Patent airway with normal (patient baseline) respiratory exam Cardiovascular Function: Hemodynamically Stable Hydration Status: Adequately Hydrated Nausea & Vomiting: No Nausea or Vomiting Pain: Pt. Denies Any Pain Peripheral Nerve Block: Patient did not receive a nerve block
[2022-12-14 12:26] VITALS: BP 137/92; PULSE 61; RESP 18; TEMP 36.6; O2SAT 96
[2022-12-14 12:40] VITALS: BP 138/88; PULSE 75; RESP 18; TEMP 36.6; O2SAT 97
--- NOTE | 2022-12-16 15:48 | W.PM.OP ---
Date of service: 12/14/22 Time of Service: 12:30 Operative Note Operative Note DATE OF PROCEDURE: 12/14/22 PRE-OP DIAGNOSIS: Right Carpal Tunnel Syndrome POST-OP DIAGNOSIS: same PROCEDURE: Right Endoscopic Carpal Tunnel Release SURGEON: Devonte Root ANESTHESIA TYPE: General:No Airway Refer to Anesthesia Record ESTIMATED BLOOD LOSS: 0 PATHOLOGY: none sent TOURNIQUET TIME: 4 COMPLICATIONS: None Patient was transported to: same day Patient's condition: stable Indications: I have seen Edwin in clinic for symptoms of carpal tunnel syndrome. The numbness, tingling, and pain limited function. Clinical exam findings with nerve conduction tests confirmed the diagnosis of carpal tunnel syndrome. Nonoperative measures such as bracing, time, activity modifications had been tried but disability and pain persisted. I discussed carpal tunnel release with the patient. I reviewed the risks of the procedure to include, but not limited to, bleeding, infection, pain, stiffness, incomplete release, damage to nerves or vessels, persistent numbness, recurrence. Despite these risks, the patient elected to proceed. Findings: There was tightened carpal tunnel. This was dilated and released successfully with the endoscopic with increased space within the tunnel. The antebrachial fascia was released proximally freeing the median nerve at the wrist. Procedure Description: Edwin was greeted in the preoperative holding area where the correct side was identified and marked. The consent was reviewed with the patient and signed. The history and physical was updated. All questions were answered. He was taken back to the operating room. The patient was placed into the supine position on the operating room table with the right arm on an arm board. A nonsterile tourniquet was placed high onto the arm. All bony prominences were well padded. Prophylactic antibiotics in the form of Cefazolin were administered. The right arm was then prepped with Chloraprep and draped in a standard fashion with stockinette and extremity drape. A timeout to confirm correct identity, side and site, procedure, allergies, anesthesia, and medical concerns was performed. The surgical site was marked in the volar wrist creases in line with the radial border of the fourth ray. This area was anesthetized with approximately 6cc of 1% Lidocaine. The limb was then exsanguinated with an Esmarch. The skin was incised with a 15 blade, approximately 1cm. The skin only was cut and the deeper tissue was dissected bluntly with a tenotomy scissor, avoiding passing nerve and venous structures. The fascia was penetrated and opened bluntly. A two-prong skin hook was placed under this proximal fascial edge. A series of hamate finders were used to identify and dilate the carpal tunnel. Synovial elevator was used to free synovial attachments to the underside of the transverse carpal ligament. My thumb was kept in the palm to crystal the distal extent of the carpal tunnel and correctly position the hand. The Microaire endoscope was inserted without difficulty and without resistance. Excellent visualization showed horizontally running fibers of the transverse carpal ligament (TCL). The distal extent of the TCL was visualized and the end of the scope palpated with the thumb. The blade was elevated and withdrawn from distal to proximal. The TCL was split into two flaps. The endoscope was reinserted to confirm complete release and any remnant ligament was incised. The scope was withdrawn and the proximal aspect of the carpal tunnel was grossly inspected and appeared release with the median nerve visible. The antebrachial fascia at the level of the wrist was then freed from the overlying skin and then the underlying median nerve with blunt dissection. This was transected longitudinally for about 3cm proximal to the wrist incision. The wound was then irrigated with easy flow of irrigant distally and proximally. The incision was closed with a single 4-0 Nylon suture. The wound was dressed with Xeroform, Gauze, Kerlix and Mahad. The tourniquet was deflated with the initial dressing and held with some pressure. Blood flow returned easily to all digits with capillary refill less than 2 seconds. The patient tolerated the procedure well and was returned to the Same Day Surgery area in a stable condition suffering no known complication.
== END 2022-12-14 12:46 | disposition home or self-care (01) ==
PROVIDERS: PCP Nurse Practitioner; Visit Provider Student in an Organized Health Care Education/Training Program
PROC: 01N54ZZ Release Median Nerve, Percutaneous Endoscopic Approach (ICD-10-PCS; CPT 29848; principal; 2022-12-14 13:30)
DX: G56.01 Carpal tunnel syndrome, right upper limb (principal)
CPT/HCPCS: 29848; J0690; J1100; J2405; J2704

== ENCOUNTER 2022-12-26 10:34 | Day surgery (SDC) | payer BC, SELFPAY ==
--- NOTE | 2022-12-25 19:51 | W.PM.DSUDISC ---
Date of service: 12/26/22 Time of Service: 14:25 Discharge Plan Disposition Patient Disposition: Home Condition: Good Discharge Details Reason For Visit: screening colonoscopy Attending Provider: Drake Bledsoe Primary Care Provider: Sirena Eli Home Meds and New Rx's Prescriptions: Continued aspirin [Aspir-81] 81 MG tablet,delayed release (DR/EC) 81 mg PO DAILY Qty: 1 tamsulosin 0.4 mg capsule 0.4 mg PO DAILY Qty: 90 3RF simvastatin 40 mg tablet 40 mg PO DAILY Qty: 90 3RF acetaminophen 500 mg tablet 1,000 mg PO TID Qty: 90 0RF ibuprofen 600 mg tablet 600 mg PO TID PRN (Reason: pain) Qty: 90 0RF Discontinued bisacodyl [Dulcolax (bisacodyl)] 5 mg tablet,delayed release (DR/EC) 5 mg PO ONCE Qty: 4 0RF Rx Instructions: Take according to provider's instructions for colonoscopy prep. polyethylene glycol 3350 17 gram/dose powder 17 g PO ONCE Qty: 238 0RF Rx Instructions: To be taken as directed by prescriber's office for colonoscopy prep. Discharge Instructions Additional Instructions: Edwin, I was able to complete your colonoscopy today without any difficulty. The quality of your prep was excellent. I did not see any signs of any polyps or tumors. In fact, your colon was totally normal. Based on your family history, you should have another colonoscopy in 5 years. 1. If tolerated, consume a soft, low fiber diet for 1-2 days. 2. Do not drive, drink alcohol, operate machinery, make critical decisions, or do activities that require coordination or balance for 24 hours. 3. Because air was put into your colon during the procedure, expelling air from your rectum (passing gas or farting) is normal. 4. You may not have a bowel movement for 1-3 days because of the colonoscopy prep. This is normal. 5. Go directly to the emergency room if you notice any of the following: Develop chills (warm to touch), or if you have a thermometer and your temperature is above 101 Difficulty breathing or difficultly swallowing Persistent vomiting Severe abdominal pain, other than gas cramps Severe chest pain Black, tarry stools Any bleeding ? exceeding one tablespoon 6. Call your physician if the site where your intravenous was started becomes red, swollen, painful, and warm to touch. 7. Your physician has reviewed your pre-procedure medications. Please continue to take those medications as previously ordered. You will be given specific information/education regarding any changes to your medications before leaving. Activity:: Activity as Tolerated Diet:: As Tolerated Discharge Orders Discharge Orders: Discharge Order (Routine); Ordered 12/25/22 Ordered By: Drake Bledsoe DS: Diagnosis Discharge Diagnosis (1) Screening for colon cancer: Status: Acute Asessment and Plan: Normal screening colonoscopy, next one should be in 5 years based on family history
--- NOTE | 2022-12-25 19:53 | W.COLOREPORT ---
Date of service: 12/26/22 Time of Service: 14:26 Colonoscopy Report Date of procedure: 12/26/22 Pre-op diagnosis general: Screening colonoscopy Post-op diagnosis procedure note: other (Normal colonoscopy) Procedure: Colonoscopy Surgeon: Drake Bledsoe Anesthesia Type: General:No Airway Estimated blood loss (mL): 0 Pathology: none sent Complications: None Disposition: same day Indications: Edwin is a 67 year old man here for a screening colonoscopy. He has a family history of a son with colon cancer Prep: Miralax/Dulcolax Procedure Start Time: 13:47 Procedure End Time: 14:15 Retraction Time: 15 Findings: Normal colonoscopy Procedure Description: After the induction of monitored anesthetic care, and with the patient in left lateral decubitus position, I began by performing an external anorectal exam.? Perineum and skin were normal, as was the anal verge.? There was no not evidence of external hemorrhoids.? Next, I performed a digital rectal exam.? I did appreciate any abnormal findings.? Next, I advanced a colonoscope into the rectal vault.? I performed retroflexion.? This was normal.? Using insufflation, I then advanced the colonoscope beyond the rectal folds and into the sigmoid colon before advancing towards the cecum.? The quality of the prep was excellent.? The scope was noted to be in the cecum by identification of the ileocecal valve and appendiceal orifice.? I then began withdrawing the colonoscope using repeated irrigation as necessary for full evaluation of the colonic mucosa. ?Once the scope was withdrawn to the level of the rectum, great care was taken to examine portions of the rectal folds.? Finally, the scope was withdrawn and the patient was brought to the same-day surgery recovery unit as the anesthetic wore off. I did not see any evidence of any polyps or cancers. Based on his family history of a son with colon cancer, he should have another colonoscopy in 5 years. the findings and instructions were shared with the patient prior to discharge.
[2022-12-26 10:50] VITALS: BP 139/94; PULSE 82; RESP 18; TEMP 36.6; O2SAT 98
[2022-12-26] MEDS: Lactated Ringers 1,000 ML 80 ML IV (11:14)
--- NOTE | 2022-12-26 11:36 | W.ANESPRE ---
General Info Date of Service Date Performed: 12/26/22 Height: 6 ft 3 in Weight: 98.9 kg Body Mass Index (BMI): 27.2 Surgical Procedure: Operation Date: 12/26/22 12:35 Proposed Procedure Side Surgeon p Tori Bledsoe MD Meds Allergies and Home Medications Allergies Allergy/AdvReac Type Severity Reaction Status Date / Time No Known Allergies Allergy Verified 12/26/22 10:57 Home Medication Medication Instructions Recorded aspirin 81 mg tablet,delayed 81 mg PO DAILY #1 tab-cap 11/27/15 release (Aspir-) tamsulosin 0.4 mg capsule 0.4 mg PO DAILY #90 caps 08/22/22 simvastatin 40 mg tablet 40 mg PO DAILY #90 tabs 10/17/22 acetaminophen 500 mg tablet 1,000 mg PO TID #90 tabs 12/14/22 ibuprofen 600 mg tablet 600 mg PO TID PRN pain #90 tabs 12/14/22 Current Visit Medications: Current Medications Generic Name Dose Route Start Last Admin Trade Name Freq PRN Reason Stop Dose Admin Hyoscyamine Sulfate 0.125 mg 12/25/22 19:55 Hyoscyamine 0.125 Mg Sl/Oral/Chew SL DIRECTED PRN Ringer's Solution 1,000 mls @ 80 mls/hr 12/26/22 06:00 12/26/22 11:14 IV 01/22/23 23:59 80 mls/hr INFUSION TORO Administration IV Miscellaneous Supplies 1 each 12/26/22 06:00 Iv Access IV 01/22/23 23:59 DIRECTED TORO Ondansetron HCl 4 mg 12/25/22 19:55 Ondansetron 4 Mg/2 Ml Vial IVP Q4H PRN PRN Nausea / Vomiting Sodium Chloride 0 ml 12/26/22 06:00 Normal Saline Flush 10 Ml Syr IV 01/22/23 23:59 PRN PRN Sodium Chloride 0 ml 12/26/22 06:00 Normal Saline 10 Ml Vial IJ 01/22/23 23:59 DIRECTED PRN Sterile Water 0 ml 12/26/22 06:00 Water,Injection,Sterile 10 Ml Vial IJ 01/22/23 23:59 DIRECTED PRN PFSH Active Problems Active Problems: Problem Status Onset Code Screening for colon cancer Z12.11 Verruca vulgaris B07.9 Hypercholesterolemia 07/25/13 E78.00 BPH without obstruction/lower urinary tract symptoms 07/04/13 N40.0 SCC (squamous cell carcinoma) C44.92 Colorectal polyps K63.5 Tubular adenoma D36.9 Wart B07.9 History of squamous cell carcinoma Z85.89 Ganglion of left hand M67.442 Hammertoe of right foot M20.41 Skin tag, acquired L91.8 Seborrheic keratosis L82.1 Peters angioma D18.01 Numerous moles D22.9 Non-healing wound Urinary hesitancy R39.11 Erectile dysfunction N52.9 Elevated PSA R97.20 Ganglion cyst of finger of right hand M67.441 Medical History Medical History Abdominal pain Cervical radiculopathy (11/21/14) prob R C5, C6; epi steroid C7 [facility] [place] 03/03/15 Diverticulitis Enteritis Erectile dysfunction (10/10/14) H/O seborrheic keratosis R lateral cheek-Dr Myrick Prehypertension (10/10/14) Medical History Comments:: Per pt. , stated years and years and years ago, he was told his throat would close up, but since having the UPPS surgery it no longer goes that. Pt. has had anesthesia here 12/2020 for Arthrodesis and did well/ Surgical History Surgical History Carpal tunnel syndrome of right wrist S/P ECTR: 12/14/2022 Hernia, umbilical History of biopsy R parietal scalp 07/02/19-Dr Myrick History of uvulopalatopharyngoplasty Hx of elbow surgery States he had a detached muscle repaired. Hx of hammer toe correction december 2020 S/P colonoscopy (~12/30/19) Status post epidural steroid injection (07/12/18) Cervical epidural steroid injection [facility] [place] Tobacco Smoking/Tobacco Use Status: Never Passive smoking exposure: No Second hand exposure: No Alcohol Alcohol Intake: current Alcohol intake frequency: a few times a month Alcohol type: beer Substance Use Substance use: Never Substance use type: does not use Vital Signs and Lab Results Vital Signs Most Recent Vital Signs in EMR: Most Recent Vital Signs Temp Pulse Resp BP Pulse Ox 36.6 C 82 18 139/94 H 98 12/26/22 10:50 12/26/22 10:50 12/26/22 10:50 12/26/22 10:50 12/26/22 10:50 Lab Results Blood Type / Crossmatch: No Data to Display Complete Blood Count: No Data to Display Complete Metabolic Panel: No Data to Display Liver Function Panel: No Data to Display Coagulation Panel: No Data to Display Cardiac Panel: No Data to Display Arterial Blood Gas: No Data to Display Venous Blood Gas: No Data to Display Pancreas Panel: No Data to Display Thyroid Panel: No Data to Display Infectious Disease: No Data to Display Blood Cultures: No Data to Display Toxicology Panel: No Data to Display Imaging and Studies Imaging and Studies Study information below may be from another EMR and interpreted by another provider. Please see original notes in EMR for more complete details. EKG Summary: (08/11/22) Sinus rhythm...normal P axis, V-rate 50- 99 Possible inferior infarct, old...Q >35mS, II III aVF Suspected chest leads reversed, V1 for V3 Anesthesia Assessment and Plan Anesthesia History Personal History: No History of Anesthesia Complications and Other Family History: No Family History of Anesthesia Complications Exercise Tolerance Exercise Tolerance: Metabolic Equivalents>4 Pertinent Negatives Pertinent Negatives: No Symptoms of GERD, No Major Cardiovascular Symptoms or Complaints and No Major Pulmonary Symptoms or Complaints Cardiac & Pulmonary Exam Cardiac Exam: Normal S1/S2 Heart Sounds Pulmonary Exam: Clear Bilateral Breath Sounds Implantable Cardiac Device Does patient have a Pacemaker or an ICD?: No Airway Exam Known Difficult Airway: No Mallampati Class: 4 Mouth Opening: Normal (> 3cm) Thyromental Distance: Greater than 3 cm Neck Range of Motion: Limited ROM Neck Circumference: Normal Teeth Condition: Generalized Poor Dentition and Loose or Chipped (chipped front tooth- none loose ) ASA Classification ASA Score: ASA 2 Emergency Case?: No NPO Status NPO Status: NPO Clears >2 hours, Solids >8 hours Anesthesia Plan Resuscitation Status: Full Code Anesthesia Technique: General Anesthesia Airway Planned: Natural Airway Monitors Used: Standard Monitors
[2022-12-26 11:37] VITALS: BMI 27.2
[2022-12-26 14:23] VITALS: BP 115/79; PULSE 69; RESP 16; TEMP 36.4; O2SAT 96
--- NOTE | 2022-12-26 14:26 | W.ANESPOSTOP ---
Postoperative Evaluation Date, Time and Location Date Performed: 12/26/22 Time Performed: : Patient Location: Day Surgery Unit Vital Signs Most Recent Imported Vital Signs: Most Recent Vital Signs Temp Pulse Resp BP Pulse Ox 36.4 C L 69 16 115/79 96 12/26/22 14:23 12/26/22 14:23 12/26/22 14:23 12/26/22 14:23 12/26/22 14:23 Pain Score Most Recent Pain Score: Most Recent Pain Score Pain Level 0 12/26/22 14:23 Assessment Mental Status: Awake (Alert & Oriented to Patient Baseline) Airway and Respiratory Function: Patent airway with normal (patient baseline) respiratory exam Cardiovascular Function: Hemodynamically Stable Hydration Status: Adequately Hydrated Nausea & Vomiting: No Nausea or Vomiting Pain: Pt. Denies Any Pain Peripheral Nerve Block: Patient did not receive a nerve block
[2022-12-26 14:48] VITALS: BP 135/93; PULSE 59; RESP 16; TEMP 36.5; O2SAT 97
== END 2022-12-26 14:57 | disposition home or self-care (01) ==
PROVIDERS: PCP Nurse Practitioner; Visit Provider Surgery
PROC: 0DJD8ZZ Inspection of Lower Intestinal Tract, Via Natural or Artificial Opening Endoscopic (ICD-10-PCS; CPT 45378; principal; 2022-12-26 12:30)
DX: Z12.11 Encounter for screening for malignant neoplasm of colon (principal); Z80.0 Family history of malignant neoplasm of digestive organs
CPT/HCPCS: 45378

== ENCOUNTER 2023-01-25 13:28 | Outpatient (REF) | payer BC, SELFPAY ==
[2023-01-25 15:42] LABS: COVID-19 PCR Negative (Negative); Influenza A PCR Negative (Negative); Influenza B PCR Negative (Negative); RSV PCR Negative (Negative)
[2023-01-25 15:43] LABS: Source Nasopharynx
== END 2023-01-25 13:29 | disposition home or self-care (01) ==
LOC: LBN 13:28
PROVIDERS: PCP Nurse Practitioner; Referring Provider Nurse Practitioner Family; Visit Provider Nurse Practitioner Family
DX: J02.9 Acute pharyngitis, unspecified (principal); R05.8 Other specified cough; Z20.822 Contact with and (suspected) exposure to COVID-19
CPT/HCPCS: 87637

== ENCOUNTER 2023-02-21 13:43 | Outpatient (CLI) | payer BC, SELFPAY ==
--- NOTE | 2023-02-21 14:43 | DI.RAD_ITS ---
Exam(s) XR SHOULDER RT COMPLETE 2+V EXAM: XR SHOULDER RT COMPLETE 2+V CLINICAL HISTORY: Injury, S49.90XA, Suspect rotator cuff tear, insurance needs Xray 1st. TECHNIQUE: 2D digital imaging was performed of the right shoulder. Five images were obtained. AP, Grashey, Y-view and axillary views were obtained. COMPARISON: No exams were available for comparison FINDINGS: BONES: No acute fracture is present. No bony destructive lesion is seen. JOINTS: No dislocation present. Mild degenerative changes are seen at the acromioclavicular joint. T he glenohumeral joint is well maintained. SOFT TISSUE: Normal. IMPRESSION: Mild degenerative changes of the right AC joint. DATA REPOSITORY: RADIATION DOSE DELIVERED:
== END 2023-02-21 14:03 ==
LOC: DI 13:43
PROVIDERS: PCP Nurse Practitioner; Visit Provider Family Medicine
DX: S49.90XA Unspecified injury of shoulder and upper arm, unspecified arm, initial encounter (principal)
CPT/HCPCS: 73030

== ENCOUNTER 2023-03-23 02:08 | Outpatient (CLI) | payer BC, SELFPAY ==
--- NOTE | 2023-03-23 08:45 | DI.MRI_ITS ---
Exam(s) MR UPPER JOINT RT WO EXAM: MR UPPER JOINT RT WO CLINICAL HISTORY: ? RTC TEAR,SHOULDER INJURY,M75.101,S49.90XA. TECHNIQUE: Multiplanar multisequence MRI was performed. COMPARISON: CR XR SHOULDER RT COMPLETE 2+V from 02/21/2023 FINDINGS: BONES: There is no fracture or contusion pattern. JOINTS: There are degenerative changes seen at the acromioclavicular joint. The glenohumeral joint i s normal. TENDONS: Supraspinatus: There is a partial intrasubstance tear of the supraspinatus tendon. Infraspinatus: Unremarkable. Subscapularis: Unremarkable. Teres Minor: Unremarkable. Biceps and [place]: Unremarkable. MUSCLES: There is mild fatty atrophy of the teres minor muscle. GLENOID LABRUM: Unremarkable on this noncontrast examination. SOFT TISSUES: Unremarkable. LIGAMENTS: Unremarkable. OTHER: There is a small amount of fluid seen in the subacromial subdeltoid bursa. IMPRESSION: 1. There is a partial intrasubstance tear of the supraspinatus tendon. 2. There is mild fatty atrophy of the teres minor muscle. No soft tissue mass is identified. 3. Degenerative changes of the acromioclavicular joint. DATA REPOSITORY:
== END 2023-03-23 02:28 ==
LOC: DI 02:08
PROVIDERS: PCP Nurse Practitioner; Visit Provider Student in an Organized Health Care Education/Training Program
DX: M75.101 Unspecified rotator cuff tear or rupture of right shoulder, not specified as traumatic (principal); M19.011 Primary osteoarthritis, right shoulder
CPT/HCPCS: 73221

== ENCOUNTER 2023-04-18 03:25 | Outpatient (CLI) | payer BC, SELFPAY ==
[2023-04-18 19:18] LABS: PSA, Diagnostic 7.9 ng/mL (<=4.5)
== END 2023-04-18 03:26 | disposition home or self-care (01) ==
LOC: LBO 03:25
PROVIDERS: PCP Nurse Practitioner; Visit Provider Nurse Practitioner Gerontology
DX: R97.20 Elevated prostate specific antigen [PSA] (principal); N40.0 Benign prostatic hyperplasia without lower urinary tract symptoms
CPT/HCPCS: 36415; 84153

== ENCOUNTER 2023-04-28 07:51 | Day surgery (SDC) | payer BC, SELFPAY ==
[2023-04-28] VITALS (12 sets, daily range): BP systolic 104–141; BP diastolic 68–91; PULSE 59–76; RESP 13–19; TEMP 36.1–36.6; O2SAT 94–97; BMI 28.7
--- NOTE | 2023-04-28 06:33 | W.ANESPRE ---
General Info Date of Service Date Performed: 04/28/23 Height: 6 ft 3 in Weight: 104.326 kg Body Mass Index (BMI): 28.7 Surgical Procedure: Operation Date: 04/28/23 10:10 Proposed Procedure Side Surgeon p Shoulder Rotator Cuff Arthroscopic w/Extensive Debridement, Biceps Tenodesis, Subacromial Decompression Right Yao Myers MD Meds Allergies and Home Medications Allergies Allergy/AdvReac Type Severity Reaction Status Date / Time No Known Allergies Allergy Verified 04/28/23 08:15 Home Medication Medication Instructions Recorded aspirin 81 mg tablet,delayed 81 mg PO DAILY #1 tab-cap 11/27/15 release (Aspir-) tamsulosin 0.4 mg capsule 0.4 mg PO DAILY #90 caps 08/22/22 simvastatin 40 mg tablet 40 mg PO DAILY #90 tabs 10/17/22 acetaminophen 500 mg tablet 1,000 mg PO TID #90 tabs 12/14/22 ibuprofen 600 mg tablet 600 mg PO TID PRN pain #90 tabs 12/14/22 Current Visit Medications: Current Medications Generic Name Dose Route Start Last Admin Trade Name Freq PRN Reason Stop Dose Admin Ringer's Solution 1,000 mls @ 30 mls/hr 04/28/23 06:00 IV 05/27/23 23:59 INFUSION TORO Cefazolin Sodium/Dextrose 2 gm in 50 mls @ 100 mls/hr 04/28/23 06:00 Ancef Duplex IVPB 05/27/23 23:59 PREOP TORO IV Miscellaneous Supplies 1 each 04/28/23 06:00 Iv Access IV 05/27/23 23:59 DIRECTED TORO Sodium Chloride 0 ml 04/28/23 06:00 Normal Saline Flush 10 Ml Syr IV 05/27/23 23:59 PRN PRN Sodium Chloride 0 ml 04/28/23 06:00 Normal Saline 10 Ml Vial IJ 05/27/23 23:59 DIRECTED PRN Sterile Water 0 ml 04/28/23 06:00 Water,Injection,Sterile 10 Ml Vial IJ 05/27/23 23:59 DIRECTED PRN PFSH Active Problems Active Problems: Problem Status Onset Code Bursitis of right shoulder M75.51 Tendonitis of long head of biceps brachii of right shoulder M75.21 Traumatic tear of right rotator cuff ~11/2022 S46.011A Screening for colon cancer Z12.11 Verruca vulgaris B07.9 Hypercholesterolemia 07/25/13 E78.00 BPH without obstruction/lower urinary tract symptoms 07/04/13 N40.0 SCC (squamous cell carcinoma) C44.92 Colorectal polyps K63.5 Tubular adenoma D36.9 Wart B07.9 History of squamous cell carcinoma Z85.89 Ganglion of left hand M67.442 Hammertoe of right foot M20.41 Skin tag, acquired L91.8 Seborrheic keratosis L82.1 Peters angioma D18.01 Numerous moles D22.9 Non-healing wound Urinary hesitancy R39.11 Erectile dysfunction N52.9 Elevated PSA R97.20 Ganglion cyst of finger of right hand M67.441 Medical History Medical History Abdominal pain Cervical radiculopathy (11/21/14) prob R C5, C6; epi steroid C7 [facility] [place] 03/03/15 Diverticulitis Enteritis Erectile dysfunction (10/10/14) H/O seborrheic keratosis R lateral cheek-Dr Myrick Prehypertension (10/10/14) Medical History Comments:: Per pt. , stated years and years and years ago, he was told his throat would close up, but since having the UPPS surgery it no longer goes that. Pt. has had anesthesia 12/26/22 for ECTR and did well Surgical History Surgical History Carpal tunnel syndrome of right wrist S/P ECTR: 12/14/2022 Hernia, umbilical History of biopsy R parietal scalp 07/02/19-Dr Myrick History of uvulopalatopharyngoplasty Hx of elbow surgery States he had a detached muscle repaired. Hx of hammer toe correction december 2020 S/P colonoscopy (~12/30/19) Status post epidural steroid injection (07/12/18) Cervical epidural steroid injection [facility] [place] Tobacco Smoking/Tobacco Use Status: Never Passive smoking exposure: No Second hand exposure: No Alcohol Alcohol Intake: current Alcohol intake frequency: a few times a week Alcohol type: beer Substance Use Substance use: Never Substance use type: does not use Vital Signs and Lab Results Vital Signs Most Recent Vital Signs in EMR: Temp Pulse Resp BP Pulse Ox 36.1 C L 71 16 141/91 H 97 04/28/23 07:55 04/28/23 07:55 04/28/23 07:55 04/28/23 07:55 04/28/23 07:55 Lab Results Blood Type / Crossmatch: No Data to Display Complete Blood Count: No Data to Display Complete Metabolic Panel: No Data to Display Liver Function Panel: No Data to Display Coagulation Panel: No Data to Display Cardiac Panel: No Data to Display Arterial Blood Gas: No Data to Display Venous Blood Gas: No Data to Display Pancreas Panel: No Data to Display Thyroid Panel: No Data to Display Infectious Disease: No Data to Display Blood Cultures: No Data to Display Toxicology Panel: No Data to Display Imaging and Studies Imaging and Studies Study information below may be from another EMR and interpreted by another provider. Please see original notes in EMR for more complete details. EKG Summary: :08/11/22: Sinus rhythm...normal P axis, V-rate 50- 99 Possible inferior infarct, old...Q >35mS, II III aVF Suspected chest leads reversed, V1 for V3 Anesthesia Assessment and Plan Anesthesia History Personal History: Other Family History: No Family History of Anesthesia Complications Exercise Tolerance Exercise Tolerance: Metabolic Equivalents>4 Cardiac & Pulmonary Exam Cardiac Exam: Normal S1/S2 Heart Sounds Pulmonary Exam: Clear Bilateral Breath Sounds Implantable Cardiac Device Does patient have a Pacemaker or an ICD?: No Airway Exam Known Difficult Airway: No Mallampati Class: 4 Mouth Opening: Normal (> 3cm) Thyromental Distance: Greater than 3 cm Neck Range of Motion: Limited ROM Neck Circumference: Normal Teeth Condition: Generalized Poor Dentition and Loose or Chipped (chipped front tooth- none loose ) ASA Classification ASA Score: ASA 2 Emergency Case?: No NPO Status NPO Status: NPO Clears >2 hours, Solids >8 hours Anesthesia Plan Resuscitation Status: Full Code Anesthesia Technique: General Anesthesia Airway Planned: Endotracheal Tube Pain Management: Surgeon and patient request nerve block Monitors Used: Standard Monitors Preoperative Comments:: 67 yo male for RTC repair. Sig PMHx: Cervical radiculopathy (has not had issue in years), UPPP, never smoker, occ EtOH. Previous anes: - prop, natural airway, no issues x 3.
--- NOTE | 2023-04-28 07:14 | W.PM.DSUDISC ---
Date of service: 04/28/23 Time of Service: 14:00 Discharge Plan Disposition Patient Disposition: Home Discharge Details Attending Provider: Yao Myers Primary Care Provider: Sirena Eli Home Meds and New Rx's Prescriptions: New naproxen 250 mg tablet 250 - 500 mg PO BID PRNQty: 40 0RF Rx Instructions: take with a meal oxycodone 5 mg tablet 5 - 10 mg PO Q4H MDD 30 mg PRN (Reason: moderate to severe pain) Qty: 18 0RF Continued aspirin [Aspir-81] 81 MG tablet,delayed release (DR/EC) 81 mg PO DAILY Qty: 1 tamsulosin 0.4 mg capsule 0.4 mg PO DAILY Qty: 90 3RF simvastatin 40 mg tablet 40 mg PO DAILY Qty: 90 3RF Discontinued acetaminophen 500 mg tablet 1,000 mg PO TID Qty: 90 0RF ibuprofen 600 mg tablet 600 mg PO TID PRN (Reason: pain) Qty: 90 0RF Hold Instructions: Home Medication placed on hold at Doctor's office Discharge Instructions Additional Instructions: Surgery: Right shoulder arthroscopy with rotator cuff repair (suture-only supraspinatus), biceps tenodesis, extensive debridement, and subacromial decompression. Activity: For 6 weeks, you should keep your arm at your side in a neutral position at all times except for physical therapy. Do not try to lift or raise your arm using your own muscles. You should use the sling whenever you are out of the house. You may have to adjust the abduction pillow or remove it for comfort. At home it is best to remove the sling and rest the arm on a pillow at your side or support the operative side with your other hand. You may allow the arm to dangle at your side. A physical therapy prescription will be sent electronically to begin in about 3 weeks. Prescriptions: Resume daily aspirin tomorrow Naproxen 250 mg take 1-2 every 12 hours with a meal as needed for moderate pain Oxycodone 5 mg take 1-2 every 4-6 hours as needed for severe pain You may use [id number]-[id number] Tylenol (acetaminophen) as needed for mild pain. These pain medications may be taken all at once or in different combinations as needed. Also, recommend Colace (docusate) as a stool softener as surgery and pain medicine cause constipation. You may try insl-jmi-bfplbwy diphenhydramine (Benadryl) 25-50 mg nightly as a sleep aid Dressings: Remove shoulder bandage after 3 days. Leave the sticky Steri-Strips in place until they fall off or remove them after you shower. Cover the incisions with Band-Aids or leave them open to air. You may shower after 5 days. Follow-up: 10-[address] Myers You may take off the leg compression stockings this evening at home. You may also leave them on a few days longer if you have a history of leg swelling or edema. Let us know right away if you develop any redness, drainage, fevers, chest pain, or trouble breathing. Do not drink alcohol or drive for at least 24 hours after anesthesia. Please call the office during business hours with any questions or concerns. Discharge Orders Discharge Orders: Discharge Order (Routine); Ordered 04/28/23 Ordered By: Yao Myers DS: Diagnosis Discharge Diagnosis (1) Traumatic tear of right rotator cuff: Status: Acute
--- NOTE | 2023-04-28 07:15 | W.PM.OP ---
Date of service: 04/28/23 Time of Service: 10:30 Operative Note Operative Note DATE OF PROCEDURE: 04/28/23 PRE-OP DIAGNOSIS: Right: 1. Rotator cuff tear 2. LHB tendinopathy 3. Bursitis POST-OP DIAGNOSIS: same PROCEDURE: Right: 1. Rotator cuff repair, CPT# 43481. This involved suture?only repair of the supraspinatus. 2. Arthroscopic biceps tenodesis, CPT# 59610. This involved arthroscopically suturing and reattaching the long head of the biceps tendon to the proximal humerus at the superior margin of the bicipital groove with a screw at the correct tension. 3. Extensive debridement, CPT# 58513. This involved using arthroscopic hand instruments, power instruments, and radiofrequency instruments to release the long head of the biceps tendon and debride areas of SLAP tearing, anterior and posterior labral tearing, rotator interval synovitis, and mild superior humeral head and glenoid chondromalacia. 4. Subacromial decompression with partial acromioplasty, CPT# 23234. This involved using arthroscopic power instruments and a radiofrequency wand to complete a bursectomy and smooth the undersurface of the acromion. The plant attendant or assistant operator was medically required in order to help assist in techniques above, which require positioning the arm, holding the arthroscope, and manipulating multiple instruments and sutures at the same time. This cannot be done without the help of an experienced plant attendant or assistant operator. SURGEON: Yao Myers [employer] SALES SUPERVISOR: Lizeth Tristan ANESTHESIA TYPE: General LMA/ETT and Primary Nerve Block Refer to Anesthesia Record ESTIMATED BLOOD LOSS: 10 PATHOLOGY: none sent COMPLICATIONS: None Patient was transported to: PACU Patient's condition: stable Implants: Arthrex: 4.75mm SwiveLocks x 1 Indications: The patient was diagnosed with the above conditions and appropriately indicated for surgical intervention. Please see complete medical record for details. Findings: Exam under anesthesia: Moderately full range of motion, no instability Glenohumeral joint: Significant anterior and rotator interval synovitis and capsulitis. Moderate anterior and posterior labral fraying and tearing. Inflamed and unstable long head biceps tendon anchor SLAP tear. Intact subscapularis and articular rotator cuff. Subacromial space: Significant bursitis. Moderately narrowed acromiohumeral interval. Small longitudinal supraspinatus mid?tendon, over the footprint, high?grade defect. Remainder supraspinatus laterally and infraspinatus intact. Procedure Description: In the operating room, general anesthesia was induced. Bilateral shoulders were examined. The patient was positioned in the beachchair position. All bony prominences were well-padded. Preoperative antibiotics were administered. The shoulder was prepped and draped in the usual sterile fashion. The correct patient, procedure, and side of the procedure were all verified prior to incision. Starting through the posterior portal a standard complete diagnostic arthroscopy was performed of the glenohumeral joint including inspection of the long head of the biceps, anterior and superior labrum, subscapularis tendon, supraspinatus and infraspinatus tendons, and axillary recess. The glenoid and humeral head cartilage as well as the posterior labrum were inspected from an anterior viewing portal. Significant findings and interventions noted above. Of note, the articular rotator cuff was intact. An all-arthroscopic suprapectoral biceps tenodesis was performed through an anterior portal using a Loop N Tack method with a SutureTape FiberLink cinched around and through the tendon. The biceps was tenotomized from the labrum and fixated with a suture anchor at the superior margin of the bicipital groove. The extra repair stitch was then shuttled around the biceps tendon stump and back through the knotless anchor eyelet mechanism to add additional security to the repair. Starting through the posterior portal, the arthroscope was directed into the subacromial space. A lateral 50 yard line lateral portal was created. A combination of power instruments and a radiofrequency ablator were used to debride bursitis anteriorly, posteriorly, and laterally as well as expose and smooth bone spurring on the undersurface of the acromion. The coracoacromial ligament was partially released. The bursectomy was completed viewing laterally and working from posteriorly and the rotator cuff was thoroughly inspected with findings noted above. Working and viewing in the subacromial space was challenging due to the limited space available even after decompression. The supraspinatus was thoroughly probed especially about the area corresponding to the MRI defect, which showed a small longitudinal high?grade focus that probed down to the greater tuberosity footprint. Given the intact articular side and remainder intact lateral tissue to the greater tuberosity, a [id number] repair was done. A 90 degree lasso was used through the anterior superior lateral portal to shuttle a suture tape from the posterior superior lateral portal incorporating the full-thickness supraspinatus fibers about the defect. This initial repair suture was tied with SMC arthroscopic knot securing the medial aspect of the defect. This suture tape repair was repeated with an additional similar repair stitch laterally. The defect was well secured, closed, and probing did not show any additional voids or tears. The shoulder was drained of arthroscopic fluid. All portal sites were copiously irrigated. These incisions were closed using 3-0 Monocryl in a buried fashion and then covered with Mastisol, Steri-Strips, Xeroform, dry gauze, and ABDs. The dressings were covered and secured with Medipore tape. The operative extremity was placed into a sling for immobilization. The patient awoke from anesthesia without complication and was transferred to the recovery room in a stable condition.
[2023-04-28] MEDS: Lactated Ringers 1,000 ML 30 ML IV (08:30)
--- NOTE | 2023-04-28 09:43 | W.ANESNERVE ---
Nerve Block Single Injection Procedure Date and Time Date Performed: 04/28/23 Procedure Start: 09:35 Location Where Procedure Performed Procedure Location: Day Surgery Unit Reason Performed: Postoperative Analgesia Requesting Provider: Yao Myers Timeout Performed Timeout Performed: Yes Monitoring Used ECG, Blood Pressure and SpO2 Sterility Sterility: Hand Hygiene, Surgical Cap, Surgical Mask and Sterile Gloves Sedation Given During Procedure Sedation Given (Indicate Dose Given): Versed IV Dose:: 2 mg Patient Mental Status Patient Mental Status: Sedate with meaningful communication Nerve Block 1st Nerve Block: Laterality: Right Block Type: Interscalene Ultrasound Image Saved?: Yes Needle / Catheter Used: 100mm SonoPlex II Local Anesthetic Bolus (Indicate Dose Given): Lidocaine used for local infiltration of skin, Bupivacaine 0.5% Dose:: 12 mL and Exparel Dose:: 8 mL Additives (Indicate Dose Given): None Ultrasound: Sterile probe cover and gel used Nerve Stimulator: Supplement to Ultrasound use and No twitch or parasthesia noted < 0.5 mA Paresthesia: None Procedure Tolerated: No Complications Procedure Outcome: Successful Performed By: Evaristo Neil
[2023-04-28] MEDS: ceFAZolin 2 GM/50 ML BAG IVPB (10:00)
[2023-04-28] MEDS: EPINEPHrine 30 MG/30 ML VIAL (11:20)
--- NOTE | 2023-04-28 13:33 | W.ANESPOSTOP ---
Postoperative Evaluation Date, Time and Location Date Performed: 04/28/23 Time Performed: 13:33 Patient Location: Day Surgery Unit Vital Signs Most Recent Imported Vital Signs: Most Recent Vital Signs Temp Pulse Resp BP Pulse Ox 36.4 C L 76 18 120/76 96 04/28/23 13:08 04/28/23 13:08 04/28/23 13:08 04/28/23 13:08 04/28/23 13:08 Pain Score Most Recent Pain Score: Most Recent Pain Score Pain Level 0 04/28/23 13:08 Assessment Mental Status: Awake (Alert & Oriented to Patient Baseline) Airway and Respiratory Function: Patent airway with normal (patient baseline) respiratory exam Cardiovascular Function: Hemodynamically Stable Hydration Status: Adequately Hydrated Nausea & Vomiting: No Nausea or Vomiting Pain: Pt. Denies Any Pain Peripheral Nerve Block: Regional nerve block not resolved at time of post operative discharge
== END 2023-04-28 15:15 | disposition home or self-care (01) ==
PROVIDERS: PCP Nurse Practitioner; Visit Provider Student in an Organized Health Care Education/Training Program
PROC: (CPT 29827; principal; 2023-04-28 10:00)
DX: M75.101 Unspecified rotator cuff tear or rupture of right shoulder, not specified as traumatic (principal); M75.51 Bursitis of right shoulder; M75.21 Bicipital tendinitis, right shoulder; M94.211 Chondromalacia, right shoulder
CPT/HCPCS: 29827; 29828; 29826; 29823; 76942; J0690; J1885; J2250

== ENCOUNTER 2023-10-03 08:39 | Outpatient (REF) | payer BC, SELFPAY ==
--- NOTE | 2023-10-03 07:30 | SKI_PTH ---
PATIENT: Edwin Weiss LOC: [facility] U#:[id number] AGE/SX: 68/M ROOM: RE10/03/[address]: Gaurav Byers MD : [id number] BED: DIS: 10/03/2023 SPEC #: [id number] RECD: 10/03/23 16:31 STATUS: MARTINE REKarson #: [id number] JAMEE: 10/03/23 07:[address]: Gaurav Byers DEPT: Surgical Specimen RECD BY: Akila Velazquez ENTERED: 10/03/23 16:34 SP TYPE: ZAIDA HOLDER DR: Sirena Eli APRN Tissues: 1 - SKIN BIOPSY(SHAVE/PUNCH) Procedures: SKIN LEVEL 4 Comments: [id number]
== END 2023-10-03 08:40 | disposition home or self-care (01) ==
LOC: LBN 08:39
PROVIDERS: PCP Nurse Practitioner; Visit Provider Otolaryngology
DX: D22.21 Melanocytic nevi of right ear and external auricular canal (principal)
CPT/HCPCS: 88305

== ENCOUNTER 2023-10-18 04:34 | Outpatient (CLI) | payer BC, SELFPAY ==
[2023-10-18 08:10] LABS: ALT 31 U/L (16-63); AST 18 U/L (15-37); Albumin 3.9 g/dL (3.4-5.0); Alkaline Phosphatase 81 U/L (46-116); Anion Gap 3.3 mmol/L (3-11); BUN 19 mg/dL (7-18); Bilirubin, Total 0.5 mg/dL (0.2-1.0); CO2 31.7 mmol/L (21.0-32.0); Calcium 9.1 mg/dL (8.5-10.1); Calculated LDL 101 mg/dL (<100); Chloride 104 mmol/L (98-107); Cholesterol 165 mg/dL (<200); Estimated GFR 81.98 (mL/min/1.73m2); Glucose 82 mg/dL (74-106); HDL Cholesterol 44 mg/dL (40-60); Potassium 4.3 mmol/L (3.5-5.1); Sodium 139 mmol/L (136-145); Total Protein 7.3 g/dL (6.4-8.2); Triglyceride 100 mg/dL (<150)
== END 2023-10-18 04:35 | disposition home or self-care (01) ==
PROVIDERS: PCP Nurse Practitioner; Visit Provider Nurse Practitioner Gerontology
DX: E78.00 Pure hypercholesterolemia, unspecified (principal); N40.0 Benign prostatic hyperplasia without lower urinary tract symptoms; R97.20 Elevated prostate specific antigen [PSA]
CPT/HCPCS: 36415; 80053; 80061; 84153

== ENCOUNTER 2024-04-17 04:43 | Outpatient (CLI) | payer BC, SELFPAY ==
[2024-04-17 18:06] LABS: PSA, Diagnostic 6.9 ng/mL (<=4.5)
== END 2024-04-17 04:44 | disposition home or self-care (01) ==
LOC: LBO 04:43
PROVIDERS: PCP Nurse Practitioner; Visit Provider Nurse Practitioner Gerontology
DX: N40.0 Benign prostatic hyperplasia without lower urinary tract symptoms (principal); R97.20 Elevated prostate specific antigen [PSA]
CPT/HCPCS: 36415; 84153

== ENCOUNTER 2024-10-15 03:02 | Outpatient (CLI) | payer BC, SELFPAY ==
[2024-10-15 18:38] LABS: PSA, Diagnostic 9.2 ng/mL (<=4.5)
== END 2024-10-15 03:03 | disposition home or self-care (01) ==
LOC: LBO 03:03
PROVIDERS: PCP Nurse Practitioner; Visit Provider Nurse Practitioner Gerontology
DX: N40.0 Benign prostatic hyperplasia without lower urinary tract symptoms (principal); R97.20 Elevated prostate specific antigen [PSA]
CPT/HCPCS: 36415; 84153

== ENCOUNTER 2025-01-15 03:53 | Outpatient (CLI) | payer BC, SELFPAY ==
[2025-01-15 18:23] LABS: PSA, Diagnostic 6.7 ng/mL (<=4.5)
== END 2025-01-15 03:54 | disposition home or self-care (01) ==
PROVIDERS: PCP Nurse Practitioner; Visit Provider Nurse Practitioner Gerontology
DX: N40.0 Benign prostatic hyperplasia without lower urinary tract symptoms (principal); R97.20 Elevated prostate specific antigen [PSA]
CPT/HCPCS: 36415; 84153

== ENCOUNTER 2025-03-22 15:17 | Emergency (ER) | payer BC, SELFPAY ==
[2025-03-22] VITALS (19 sets, daily range): BP systolic 128–145; BP diastolic 68–82; PULSE 64–90; RESP 8–20; TEMP 36.6; O2SAT 93–98
--- NOTE | 2025-03-22 15:30 | DI.CT_ITS ---
Exam(s) CT ABDOMEN PELVIS W EXAM: CT ABDOMEN PELVIS W CLINICAL HISTORY: RLQ/umbilical pain, hx diverticulitis. TECHNIQUE: Imaging Protocol: Axial computed tomography images with coronal and sagittal reformatted images were created and reviewed CONTRAST MATERIAL: Intravenous: Omnipaque 350 Contrast volume:100 ml Oral: no COMPARISON: CT CT ABDOMEN PELVIS W from 12/03/2019 FINDINGS: ABDOMEN and PELVIS: Lung Bases: No acute findings. Dependent changes. Liver: Normal density. No suspicious mass. Gallbladder and biliary tract: No radiodense calculus. No wall thickening or pericholecystic fluid. No biliary dilation. Pancreas: Normal density. No abnormal calcifications or inflammatory process. No evidence of mass. Spleen: Normal. Kidneys: Normal size, contour and axis. Small nonobstructing stone upper pole left kidney. Parapelv ic cysts involving left kidney. No obstructive uropathy. No suspicious masses seen. Adrenal glands: No masses seen. Vasculature: Abdominal aorta non-dilated. Soft tissues: Tiny fat containing left inguinal hernia. Bladder: No gross wall thickening. No calculi.No focal mass. Bowel: No obstruction. No bowel wall thickening. Appendix normal. Moderate quantity of stool. Peritoneal cavity: No ascites. No focal collection. No mesenteric inflammatory response. No free air . Bones: Unremarkable for age. Reproductive organs: Prostate is markedly enlarged, measuring 6 by 5.8 x 8.7 cm, impinging on the bas e of the bladder. Vasectomy clips. Lymph nodes: No pathologically enlarged lymph nodes. IMPRESSION:: No acute abnormality in the abdomen or pelvis. Enlarged prostate, impressing on the base of the bladder. Moderate quantity of stool. No evidence of diverticulitis. Appendix normal. The preliminary [facility] report was reviewed. RADIATION DOSE DELIVERED: Total DLP DATA REPOSITORY: All CT scans at this facility are submitted to the National Radiology Data Registry (NRDR) Dose Index Registry (DIR) with the [employer] (A[employer]). RADIATION OPTIMIZATION: All CT scans at this facility use at least one of these dose optimization te chniques: automated exposure control; mA and/or kV adjustment per patient size (includes targeted exa ms where dose is matched to clinical indication); or iterative reconstruction.
--- NOTE | 2025-03-22 15:39 | W.ED.GENAD ---
Discharge Plan Disposition Patient Disposition: Home Condition: Stable Discharge Details Clinical Impression: Abdominal pain, Constipation, Enlarged prostate, Kidney cysts Primary Care Provider: Sirena Eli ED Provider: Nneka Wick Home Meds and New Rx's Prescriptions: No Action tamsulosin 0.4 mg capsule 0.4 mg PO DAILY Qty: 90 3RF aspirin [Aspir-81] 81 MG tablet,delayed release (DR/EC) 81 mg PO DAILY Qty: 1 acetaminophen 500 mg tablet 1,000 mg PO .Q8 HR PRN Rx Instructions: Around the clock until 05/18/2024 simvastatin 40 mg tablet See Rx Instructions .ROUTE .COMPLEX Qty: 90 3RF Dose Instruction: TAKE ONE TABLET BY MOUTH EVERY DAY Rx Instructions: TAKE ONE TABLET BY MOUTH EVERY DAY Discharge Instructions Instructions: Abdominal Pain, Adult ED Additional Instructions: You were seen in the emergency department today for evaluation of abdominal pain. In our department you had a full physical examination performed, had laboratory studies that were reassuring, and had a CT scan that did not show any abnormalities to explain your symptoms entirely. You do have some evidence of constipation, which could certainly be contributing. I recommend that you restart your MiraLAX, 1 cap once per day and adjust the amount that you are using to ensure that you are passing 1 soft, toothpaste consistency stool per day. I recommend that you increase your hydration and continue to use Tylenol and ibuprofen as needed for ongoing pain. You had some incidental findings on your CT scan. Most notable of which is enlargement of your prostate, which appears to extend up towards the base of your bladder. You are following with Dr. Echeverria for monitoring for prostate cancer, and should contact his office to schedule a sooner appointment for reevaluation given this imaging finding. Please follow-up with your primary care provider in the next few days to discuss this visit and any symptoms that change, worsen, or persist. Thank you for allowing us to be part of your care. HPI General Mode of arrival: ambulatory. Date/Time Provider Initiated Documentation: 03/22/25 15:23. Limitations to Documentation: no limitations. Information obtained by: patient, family and old records reviewed. HPI Narrative: This is a 69-year-old male patient with a past medical history significant for BPH, a remote episode of diverticulitis, who is presenting for evaluation of abdominal tenderness. The patient reports that his pain started on , he initially thought he sprained a muscle or pulled a muscle, but his pain has been constant and continuous since that time. Sometimes it improves in severity when he rests or does not move, but it does get worse when he bends over, presses on it, or moves about. He has not had any fevers or chills, nausea or vomiting, bowel or bladder changes, and specifically denies diarrhea, bloody stools, dysuria. He states that he has a history of umbilical hernia repair, notices a bulge when he flexes his muscles but has not noted any irreducible bulges, overlying skin changes, or obstructive symptoms. No other abdominal surgical history reported. He has not tried any medications for management of the symptoms in the outpatient environment. Related Data Home Medications ?Medication ?Instructions ?Recorded ?Confirmed aspirin 81 mg tablet,delayed 81 mg PO DAILY #1 tab-cap 11/27/15 03/22/25 release (Aspir-) tamsulosin 0.4 mg capsule 0.4 mg PO DAILY #90 caps 04/24/24 03/22/25 acetaminophen 500 mg tablet 1,000 mg PO .Q8 HR PRN 05/10/24 03/22/25 simvastatin 40 mg tablet See Rx Instructions .Route 09/30/24 03/22/25 .COMPLEX #90 tabs Previous Rx's ?Medication ?Instructions ?Recorded tamsulosin 0.4 mg capsule 0.4 mg PO DAILY #90 caps 04/24/24 simvastatin 40 mg tablet See Rx Instructions .Route 09/30/24 .COMPLEX #90 tabs Allergies Allergy/AdvReac Type Severity Reaction Status Date / Time No Known Allergies Allergy Verified 03/22/25 15:25 General Stated Complaint: Abd Prob AIDA: 3 Exam Narrative Exam Narrative: Gen: Awake and alert, in no apparent distress HEENT: Non-icteric sclera Neck: Supple Lungs: No apparent respiratory distress, normal respiratory effort. CV: Appears well perfused, heart with regular rate and rhythm, strong distal pulses Abdomen: Non-distended, soft, tender to palpation in the periumbilical and right lower quadrant region, with a positive Rovsing sign. The patient does have guarding but no rigidity or rebound. No overlying skin changes noted, small bulge appreciated just to the right of the umbilicus, which is tender to palpation. Bowel sounds present and appropriate MSK: Moves 4 extremities without apparent limitation in ROM Skin: Visualized skin without rashes, cyanosis. Neuro: Normal Gait, no obvious focal deficits or facial asymmetry. Speaks in full, clear sentences. Psych: Appropriate for situation. Course Vital Signs Vital signs: Vital Signs Temperature 36.6 C 03/22/25 15:21 Pulse 90 03/22/25 15:21 Respiratory Rate 20 03/22/25 15:21 Blood Pressure 145/76 H 03/22/25 15:21 Pulse Oximetry 96 03/22/25 15:21 Temperature 36.6 C 03/22/25 15:33 Pulse 90 03/22/25 15:33 Respiratory Rate 20 03/22/25 15:33 Blood Pressure 145/76 H 03/22/25 15:33 Pulse Oximetry 96 03/22/25 15:33 Oxygen Delivery Method Room Air 03/22/25 15:33 Oxygen Flow Rate 0 03/22/25 15:33 Pain Level 8 03/22/25 15:33 Medical Decision Making This is a 69-year-old male patient presenting for evaluation of abdominal pain. My differential includes but is not limited to appendicitis, diverticulitis, bowel obstruction, incarcerated or strangulated hernia, cholecystitis, hepatitis, pancreatitis, gastroenteritis, peptic ulcer disease/gastritis. Patient is without significant urinary symptoms to increase my concern for urinary tract infection or nephrolithiasis. I considered mesenteric ischemia, though the patient is without pain out of proportion to exam, and has not had proceed prandial worsening of his symptoms. I did not note any pulsatile masses or hemodynamic instability to significantly increase my concern for abdominal aortic aneurysm. The pain is at the low the level of the umbilicus, and he has no associated chest pain to increase my concern for ACS. We will obtain laboratory studies to include CBC, CMP, magnesium, troponin, lipase, and lactate. I will obtain a urinalysis as well as a CT abdomen pelvis with contrast to better characterize any abnormalities. I will provide the patient with a dose of Tylenol for initial management of pain. I independently interpreted the laboratory studies, which show no significant leukocytosis, anemia, or thrombocytopenia. The chemistry panel is without evidence of electrolyte abnormality, kidney dysfunction, or liver injury. Lipase low, troponin negative and without interval increase on 1 hour delta recheck. Lactate is low. Urinalysis noninfectious. CT scan reviewed by myself, the patient has no evidence of diverticulitis, appendicitis, or hernia issues. He does have some moderate constipation which could certainly be contributing to his abdominal discomfort, and I counseled him on good hydration, MiraLAx. The patient did have some incidental findings on his CT scan, including an enlarged prostate with extension up to the inferior bladder wall, concerning for prostate neoplasm. I note that he is appropriately followed by Dr. Echeverria for elevated PSA and prostate enlargement, but I counseled him to reach out to this clinic sooner for reevaluation given this finding. He is not having any obstructive urinary symptoms at this time. He had some nonspecific bilateral changes in his lungs, does endorse a recent upper respiratory infection which may be the cause of this finding. Finally, he had a parapelvic renal cyst, with no evidence of obstruction. All of these findings were shared with the patient at the bedside. At this time, the patient has had a full medical evaluation and is safe for discharge to home. They are hemodynamically stable, ambulatory, and tolerating PO. They are understanding of the follow-up plan and return precautions. They left our facility without incident. Nneka Wick MD Quality:SDOH Health Related Social Needs: No Data to Display PFSH All Active Problems (Updated 03/22/25 @ 17:26 by Nneka Wick MD) Kidney cysts (Acute) Enlarged prostate (Acute) Constipation (Acute) Abdominal pain (Acute) Cervical vertebral fusion (Acute) [place] [facility] [place]/2024 C5-7 Skin lesion (Acute) Tendonitis of long head of biceps brachii of right shoulder (Acute) Traumatic tear of right rotator cuff (Acute ~11/2022) Screening for colon cancer (Acute) Verruca vulgaris (Acute) Hypercholesterolemia (Acute 07/25/13) PCEq 9.5%; FRS 15%; LDL baseline 156 BPH without obstruction/lower urinary tract symptoms (Acute 07/04/13) SCC (squamous cell carcinoma) (Acute) R chondral bowl 04/2003 Colorectal polyps (Acute) Tubular adenoma (Acute) cecum and descending colon Wart (Acute) History of squamous cell carcinoma (Acute) Ganglion of left hand (Acute) Hammertoe of right foot (Acute) Skin tag, acquired (Acute) Seborrheic keratosis (Acute) Peters angioma (Acute) Numerous moles (Acute) Non-healing wound (Acute) Urinary hesitancy (Acute) Erectile dysfunction (Acute) Elevated PSA (Acute) Ganglion cyst of finger of right hand (Acute) Medical History (Updated 03/22/25 @ 17:26 by Nneka Wick MD) Intradermal melanocytic nevus Bursitis of right shoulder Enteritis Diverticulitis Abdominal pain H/O seborrheic keratosis R lateral cheek-Dr Myrick Cervical radiculopathy (11/21/14) prob R C5, C6; epi steroid C7 [facility] [place] 04/04/24 appointment and surgery planned 05/08/24 R Shoulder surgery done Erectile dysfunction (10/10/14) Prehypertension (10/10/14) Surgical History (Updated 06/03/24 @ 18:55 by Jennie Barker LPN) S/P cervical discectomy (~05/08/24) C5-C7 RUE History of excision of lesion (10/03/23) R postauricular--melanocytic nevus, intradermal type Dr Byers Hx of hammer toe correction december 2020 Carpal tunnel syndrome of right wrist S/P ECTR: 12/14/2022 S/P colonoscopy (~12/30/19) History of uvulopalatopharyngoplasty Hernia, umbilical Hx of elbow surgery States he had a detached muscle repaired. History of biopsy R parietal scalp 07/02/19-Dr Myrick Status post epidural steroid injection (07/12/18) Cervical epidural steroid [place] [facility] [place] History Mother Hypertension Father Diabetes Heart disease Myocardial infarction Cancer Son Cancer Colon cancer Social History Smoking/Tobacco Use Status: Never Second Hand Exposure: No Smoking risk assessment performed?: Yes Alcohol Intake: current Alcohol Intake frequency: a few times a week Alcohol type: beer Drug use: Never Substance use type: does not use Counseling given: No Adopted: No Caregiver/Support person: No Foster care: No Household members: spouse Housing: house Number of Children: 2 number of grandchildren: 3 Communication Needs: None Education Level: high school Do you need help understanding health information?: Rarely current occupation: Retired Pets and animals: No Sexually active: No Do you think of yourself as: straight/heterosexual Current gender identity: male What is your relationship status?: How often do you talk on the phone with friends or family?: three or more times per week How often do you get together with friends or relatives?: twice per week How often do you attend hindu or uatsdin services?: 1-3 times per year Do you belong to any clubs or organized social groups?: yes Panel score (0-1 are the most socially isolated patients): 3 What type of physical activity do you participate in: walking Duration: 30-45 minutes/day Frequency: daily Special erika needs: No Seatbelt use: sometimes Helmet use: No Drive intox or ride 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
[2025-03-22 15:49] LABS: Lactate 0.9 mmol/L (<or=2.0)
[2025-03-22 15:50] LABS: Abs Immature Grans 0.01 10^3/uL (0.0-0.06); Absolute Basophil Count 0.04 10^3/uL (0.0-0.2); Absolute Eosinophil Count 0.13 10^3/uL (0.0-0.7); Absolute Neutrophil Count 5.84 10^3/uL (1.2-6.7); Basophils % 0.5 %; Eosinophils % 1.6 %; HCT 43.8 % (40.0-50.0); HGB 14.9 g/dL (13.5-17.5); Immature Grans % 0.1 %; MCH 31.7 pg (27.0-33.0); MCV 93 fL (80-95); MPV 9.4 fL (8.0-11.0); Monocytes % 9.6 %; Neutrophils % 70.2 %; Platelet Count 237 10^3/uL (130-400); RDW 11.9 % (11.8-14.1); RDW-SD 41.1 fL; WBC 8.32 10^3/uL (4.4-10.8)
[2025-03-22] MEDS: Acetaminophen 500 MG TAB 1000 MG PO (15:53)
[2025-03-22 16:08] LABS: ALT 27 U/L (16-63); AST 18 U/L (15-37); Albumin 3.9 g/dL (3.4-5.0); Alkaline Phosphatase 75 U/L (46-116); Anion Gap 6.1 mmol/L (3-11); BUN 16 mg/dL (7-18); Bilirubin, Total 0.7 mg/dL (0.2-1.0); CO2 28.9 mmol/L (21.0-32.0); CREATININE 1.1 mg/dL (0.70-1.30); Calcium 8.7 mg/dL (8.5-10.1); Chloride 104 mmol/L (98-107); Estimated GFR 72.67 (mL/min/1.73m2); Glucose 93 mg/dL (74-106); Lipase 36 U/L (<78); Potassium 3.9 mmol/L (3.5-5.1); Sodium 139 mmol/L (136-145); Total Protein 6.8 g/dL (6.4-8.2); Troponin I 4 ng/L (<or=76)
[2025-03-22 16:15] LABS: Bilirubin Negative (Negative); Blood Negative (Negative); Clarity Clear (Clear); Glucose Negative (Negative); Ketones Negative (Negative); Leukocyte Esterase Negative (Negative); Nitrite Negative (Negative); Urobilinogen 0.2 mg/dL (Up to 0.2); pH 6.5 (5-8)
[2025-03-22] MEDS: Omnipaque 350 MG/ML 100 ML BTL IJ (16:17)
[2025-03-22] MEDS: Normal Saline - Diluent 50 ML VIAL IJ (16:17)
[2025-03-22 17:01] LABS: Troponin I 7 ng/L (<or=76)
--- NOTE | 2025-03-22 17:07 | DI.[facility]AD_ITS ---
PROCEDURE INFORMATION: Exam: CT Abdomen And Pelvis With Contrast Exam date and time: 03/22/2025 4:20 PM Age: 69 years old Clinical indication: Other: Rlq/umbilical pain, HX diverticulitis TECHNIQUE: Imaging protocol: Computed tomography of the abdomen and pelvis with contrast. Contrast material: 350; Contrast volume: 100 ml; Contrast route: INTRAVENOUS (IV); COMPARISON: CT ABDOMEN PELVIS W 12/03/2019 6:58 PM FINDINGS: Lungs: There is minimal bibasilar atelectasis. Scattered mild patchy ground-glass opacities within the lungs. These findings are nonspecific and may represent hypoventilatory change,edema, hemorrhage, or an infectious/inflammatory process (acute or chronic). Pleural spaces: There is no evidence of pneumothorax. There are no pleural effusions present. Heart: The cardiac structures are normal. Coronary arteries: There is mild atherosclerotic calcification of the coronary arteries. Liver: There are no focal liver lesions present. There is no evidence of intrahepatic or extrahepatic biliary ductal dilation. Gallbladder and biliary ducts: The gallbladder is normal. There is no cholelitiasis, wall thickening or pericholecystic fluid to suggest cholecystitis. Pancreas: The pancreas is normal. Spleen: The spleen is normal. Adrenal glands: The adrenal glands are normal without evidence of mass or enlargement. Kidneys and ureters: The right kidney is normal. The left kidney shows a nonobstructing calculus within the upper pole. There are probable parapelvic cysts the largest measuring approximately 2 cm. Possible localized hydronephrosis within the lower pole of the left kidney without evidence of an obvious obstructing lesion. The ureters are normal caliber and follow a normal caliber and course. Stomach and bowel: There is no evidence of intestinal obstruction. There is moderate increased colonic fecal content. The colon is mildly distended. These findings suggest a moderate degree of constipation. Clinical correlation recommended. Appendix: A normal appendix is identified. There is no evidence of distention or periappendiceal inflammation to suggest appendicitis. Intraperitoneal space: There is no free intraperitoneal air. There is no evidence of free intraperitoneal or pelvic fluid. Vasculature: The aorta and common iliac arteries are tortous which may represent longstanding hypertension.The aorta demonstrates mild atherosclerotic calcification. The portal, mesenteric and splenic veins are patent.The inferior venacava appears normal. Lymph nodes: There is no evidence of lymphadenopathy. Urinary bladder: Unremarkable as visualized. Reproductive: Evidence of prior vasectomy. The prostate is moderately to severely enlarged with inhomogeneous attenuation and enhancement. The prostate is shown significant enlargement and extension into the bladder base. Consider neoplastic process. Bones/joints: Mild degenerative changes of the hips and sacroiliac joints bilaterally. The skeletal structures and soft tissues show no evidence of fracture or other acute processes. The thoracolumbar spine demonstrates moderate degenerative changes at multiple levels. No significant degenerative changes of the lumbosacral spine. Soft tissues: There is a nonobstructing left inguinal hernia containing fat and possibly a small amount of mesentery. IMPRESSION: 1. The prostate is moderately to severely enlarged with inhomogeneous attenuation and enhancement. The prostate is shown significant enlargement and extension into the bladder base. Consider neoplastic process. 2. Scattered mild patchy ground-glass opacities within the lungs. These findings are nonspecific and may represent hypoventilatory change,edema, hemorrhage, or an infectious/inflammatory process (acute or chronic). 3. Possible localized hydronephrosis within the lower pole of the left kidney without evidence of an obvious obstructing lesion. 4. Moderate constipation. 5. Otherwise, no definitive explanation for patient's current clinical presentation elicited on this study. Dictated and Authenticated by: Beto Benavides MD. Orderin [facility]. Rashel Early MD
== END 2025-03-22 17:42 | disposition home or self-care (01) ==
PROVIDERS: Emergency Provider Emergency Medicine; PCP Nurse Practitioner
DX: N40.0 Benign prostatic hyperplasia without lower urinary tract symptoms (principal); N28.1 Cyst of kidney, acquired; K59.00 Constipation, unspecified; R10.31 Right lower quadrant pain; Z87.19 Personal history of other diseases of the digestive system
CPT/HCPCS: 99284; 99285; 36415; 80053; 83690; 74177; 81003; 83605; 83735; 84484; 85025; J3490

== ENCOUNTER 2025-04-10 15:30 | Outpatient (REF) | payer BC, SELFPAY | END 2025-04-10 15:31 | disposition home or self-care (01) | LOC: LBN 15:30 | PROVIDERS: PCP Nurse Practitioner; Visit Provider Nurse Practitioner Gerontology | DX: R31.0 Gross hematuria (principal) | CPT/HCPCS: 87086 ==

== ENCOUNTER 2025-04-21 07:09 | Day surgery (SDC) | payer BC, SELFPAY ==
[2025-04-21 07:15] VITALS: BP 134/89; PULSE 53; RESP 18; TEMP 36.5; O2SAT 98
[2025-04-21] MEDS: Lactated Ringers 1,000 ML 80 ML IV (07:42)
--- NOTE | 2025-04-21 08:00 | W.PM.HP.N ---
Date of service: 04/21/25 Time of Service: 08:00 Assessment and Plan Assessment and plan (1) Gross hematuria: Status: Acute Assessment and plan: We will attempt to complete his hematuria workup with a cystoscopy and bilateral retrograde pyelogram. We will be prepared to resect any visible abnormality in the bladder. If the source of the hematuria is his enlarged prostate (which would be the most common source), we may want to use a 5 alpha reductase inhibitor to decrease the size and vascularity of the prostate. History of Present Illness History of Present Illness Chief Complaint: Gross hematuria Narrative: This is a 69-year-old gentleman who has a history of an elevated PSA. He has not been diagnosed with prostate cancer. He recently had gross painless hematuria. He was evaluated with a CT scan which demonstrated no renal masses. His prostate was certainly enlarged and impinged on the base of the bladder, but no specific bladder masses were found. He presents now for cystoscopy and bilateral retrograde pyelogram to complete his hematuria workup. If any abnormalities in the bladder are identified, we will be prepared to do a transurethral resection of any visible bladder tumor. His hematuria has resolved since his last office visit [facility] All Active Problems Gross hematuria (Acute) Kidney cysts (Acute) Enlarged prostate (Acute) Constipation (Acute) Abdominal pain (Acute) Cervical vertebral fusion (Acute) Done at [facility] Dr. Benjamin 05/08/2024 C5-7 Skin lesion (Acute) Tendonitis of long head of biceps brachii of right shoulder (Acute) Traumatic tear of right rotator cuff (Acute ~11/2022) Screening for colon cancer (Acute) Verruca vulgaris (Acute) Hypercholesterolemia (Acute 07/25/13) PCEq 9.5%; FRS 15%; LDL baseline 156 BPH without obstruction/lower urinary tract symptoms (Acute 07/04/13) SCC (squamous cell carcinoma) (Acute) R chondral bowl 04/2003 Colorectal polyps (Acute) Tubular adenoma (Acute) cecum and descending colon Wart (Acute) History of squamous cell carcinoma (Acute) Ganglion of left hand (Acute) Hammertoe of right foot (Acute) Skin tag, acquired (Acute) Seborrheic keratosis (Acute) Peters angioma (Acute) Numerous moles (Acute) Non-healing wound (Acute) Urinary hesitancy (Acute) Erectile dysfunction (Acute) Elevated PSA (Acute) Ganglion cyst of finger of right hand (Acute) Medical History Intradermal melanocytic nevus Bursitis of right shoulder Enteritis Diverticulitis Abdominal pain H/O seborrheic keratosis R lateral cheek-Dr Myrick Cervical radiculopathy (11/21/14) prob R C5, C6; epi steroid C7 [facility] 03/03/15 04/04/24 appointment and surgery planned 05/08/24 R Shoulder surgery done Erectile dysfunction (10/10/14) Prehypertension (10/10/14) Surgical History S/P cervical discectomy (~05/08/24) C5-C7 RUE History of excision of lesion (10/03/23) R postauricular--melanocytic nevus, intradermal type Dr Byers Hx of hammer toe correction december 2020 Carpal tunnel syndrome of right wrist S/P ECTR: 12/14/2022 S/P colonoscopy (~12/30/19) History of uvulopalatopharyngoplasty Hernia, umbilical Hx of elbow surgery States he had a detached muscle repaired. History of biopsy R parietal scalp 07/02/19-Dr Myrick Status post epidural steroid injection (07/12/18) Cervical epidural steroid injection [facility] Family History Mother Hypertension Father Diabetes Heart disease Myocardial infarction Cancer Son Cancer Colon cancer Social History Smoking/Tobacco Use Status: Never Second Hand Exposure: No Smoking risk assessment performed?: Yes Alcohol Intake: current Alcohol Intake frequency: a few times a week Alcohol type: beer Drug use: Never Substance use type: does not use Counseling given: No Adopted: No Caregiver/Support person: No Foster care: No Household members: spouse Housing: house Number of Children: 2 number of grandchildren: 3 Communication Needs: None Education Level: high school Do you need help understanding health information?: Rarely current occupation: Retired Pets and animals: No Sexually active: No Do you think of yourself as: straight/heterosexual Current gender identity: male What is your relationship status?: How often do you talk on the phone with friends or family?: three or more times per week How often do you get together with friends or relatives?: twice per week How often do you attend denominational or jainism services?: 1-3 times per year Do you belong to any clubs or organized social groups?: yes Panel score (0-1 are the most socially isolated patients): 3 What type of physical activity do you participate in: walking Duration: 30-45 minutes/day Frequency: daily Special erika needs: No Seatbelt use: sometimes Helmet use: No Drive intox 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 Instructions: Changed by Provider tamsulosin 0.4 mg capsule 0.4 mg PO DAILY #90 caps 04/24/24 04/21/25 Rx acetaminophen 500 mg tablet 1,000 mg PO .Q8 HR PRN 05/10/24 04/21/25 History simvastatin 40 mg tablet See Rx Instructions .Route 09/30/24 04/21/25 Rx .COMPLEX #90 tabs Exam Narrative Exam Narrative: No fevers or chills No vision change or dysphasia No diabetes or thyroid dysfunction No shortness of breath, cough or hemoptysis No chest pain or palpitations No nausea, vomiting, hepatitis, ulcers, jaundice No seizures, strokes or peripheral neuropathy No bleeding disorders or anemia No gout Const General: cooperative Neck Neck: normal visual inspection and supple Resp Effort & Inspection: normal respiratory effort Auscultation: clear to auscultation bilaterally Cardio Rate: regular rate Rhythm: regular rhythm GI Inspection: normal to inspection Palpation: soft and no masses Neuro General: patient alert, patient awake and patient oriented x3 Results Last Vital Signs Temp 36.5 C 04/21/25 07:15 Pulse 53 L 04/21/25 07:15 Resp 18 04/21/25 07:15 BP 134/89 04/21/25 07:15 Pulse Ox 98 04/21/25 07:15 Time Spent Time spent with Patient: <40 minutes Time was spent: other
--- NOTE | 2025-04-21 08:13 | W.ANESPRE ---
General Info Date of Service Date Performed: 04/21/25 Height: 6 ft 4 in Weight: 98.9 kg Body Mass Index (BMI): 26.5 Surgical Procedure: Operation Date: 04/21/25 08:40 Proposed Procedure Side Surgeon p Cystoscopy w/Retrograde, ? Transurethral Resection Bladder Tumor, ? Cauterization of Prostate Bleeds Bilateral Oliverio Echeverria MD Meds Allergies and Home Medications Allergies Allergy/AdvReac Type Severity Reaction Status Date / Time No Known Allergies Allergy Verified 04/21/25 07:27 Home Medication ?Medication ?Instructions ?Recorded aspirin 81 mg tablet,delayed 81 mg PO DAILY #1 tab-cap 11/27/15 release (Aspir-) Held on 05/10/24. Instructions: Changed by Provider tamsulosin 0.4 mg capsule 0.4 mg PO DAILY #90 caps 04/24/24 acetaminophen 500 mg tablet 1,000 mg PO .Q8 HR PRN 05/10/24 simvastatin 40 mg tablet See Rx Instructions .Route 09/30/24 .COMPLEX #90 tabs Current Visit Medications: Current Medications Generic Name Dose Route Start Last Admin Trade Name Viniciusq PRN Reason Stop Dose Admin Ringer's Solution 1,000 mls @ 80 mls/hr 04/21/25 06:00 04/21/25 07:42 IV 04/21/25 23:59 80 mls/hr INFUSION TORO Administration Cefazolin Sodium/Dextrose 2 gm in 50 mls @ 100 mls/hr 04/21/25 06:00 Ancef Duplex IVPB 04/21/25 23:59 PREOP TORO IV Miscellaneous Supplies 1 each 04/21/25 06:00 Iv Access IV 04/21/25 23:59 DIRECTED TORO Sodium Chloride 0 ml 04/21/25 06:00 Normal Saline Flush 10 Ml Syr IV 04/21/25 23:59 PRN PRN Sodium Chloride 0 ml 04/21/25 06:00 Normal Saline 10 Ml Vial IJ 04/21/25 23:59 DIRECTED PRN Sterile Water 0 ml 04/21/25 06:00 Water,Injection,Sterile 10 Ml Vial IJ 04/21/25 23:59 DIRECTED PRN PFSH Active Problems Active Problems: Problem Status Onset Code Gross hematuria Acute R31.0 Kidney cysts Acute N28.1 Enlarged prostate Acute N40.0 Constipation Acute K59.00 Abdominal pain Acute R10.9 Cervical vertebral fusion Acute M43.22 Skin lesion Acute L98.9 Tendonitis of long head of biceps brachii of right shoulder Acute M75.21 Traumatic tear of right rotator cuff Acute ~11/2022 S46.011A Screening for colon cancer Acute Z12.11 Verruca vulgaris Acute B07.9 Hypercholesterolemia Acute 07/25/13 E78.00 BPH without obstruction/lower urinary tract symptoms Acute 07/04/13 N40.0 SCC (squamous cell carcinoma) Acute C44.92 Colorectal polyps Acute K63.5 Tubular adenoma Acute D36.9 Wart Acute B07.9 History of squamous cell carcinoma Acute Z85.89 Ganglion of left hand Acute M67.442 Hammertoe of right foot Acute M20.41 Skin tag, acquired Acute L91.8 Seborrheic keratosis Acute L82.1 Peters angioma Acute D18.01 Numerous moles Acute D22.9 Non-healing wound Acute Urinary hesitancy Acute R39.11 Erectile dysfunction Acute N52.9 Elevated PSA Acute R97.20 Ganglion cyst of finger of right hand Acute M67.441 Medical History Medical History Intradermal melanocytic nevus Bursitis of right shoulder Enteritis Diverticulitis Abdominal pain H/O seborrheic keratosis R lateral cheek-Dr Myrick Cervical radiculopathy (11/21/14) prob R C5, C6; epi steroid C7 [facility] 03/03/15 04/04/24 appointment and surgery planned 05/08/24 R Shoulder surgery done Erectile dysfunction (10/10/14) Prehypertension (10/10/14) Medical History Comments:: Per pt. , stated years and years and years ago, he was told his throat would close up, but since having the UPPS surgery it no longer goes that. Pt. has had anesthesia 12/26/22 for ECTR and did well Surgical History Surgical History S/P cervical discectomy (~05/08/24) C5-C7 RUE History of excision of lesion (10/03/23) R postauricular--melanocytic nevus, intradermal type Dr Byers Hx of hammer toe correction december 2020 Carpal tunnel syndrome of right wrist S/P ECTR: 12/14/2022 S/P colonoscopy (~12/30/19) History of uvulopalatopharyngoplasty Hernia, umbilical Hx of elbow surgery States he had a detached muscle repaired. History of biopsy R parietal scalp 07/02/19-Dr Myrick Status post epidural steroid injection (07/12/18) Cervical epidural steroid injection [facility] Tobacco Smoking/Tobacco Use Status: Never Passive smoking exposure: No Second hand exposure: No Alcohol Alcohol Intake: current Alcohol intake frequency: a few times a week Alcohol type: beer Substance Use Substance use: Never Substance use type: does not use Vital Signs and Lab Results Vital Signs Most Recent Vital Signs in EMR: Most Recent Vital Signs Temp Pulse Resp BP Pulse Ox 36.5 C 53 L 18 134/89 98 04/21/25 07:15 04/21/25 07:15 04/21/25 07:15 04/21/25 07:15 04/21/25 07:15 Lab Results Complete Blood Count: WBC, (4.4-10.8) 8.32 10^3/uL 03/22/25, 15:43 RBC, (4.36-5.78) 4.70 10^6/uL 03/22/25, 15:43 Hgb, (13.5-17.5) 14.9 g/dL 03/22/25, 15:43 Hct, (40.0-50.0) 43.8 % 03/22/25, 15:43 Plt Count, (130-400) 237 10^3/uL 03/22/25, 15:43 VBG Lactate, (<or=2.0) 0.9 mmol/L 03/22/25, 15:43 Complete Metabolic Panel: Sodium, (136-145) 139 mmol/L 03/22/25, 15:43 Potassium, (3.5-5.1) 3.9 mmol/L 03/22/25, 15:43 Chloride, (98-107) 104 mmol/L 03/22/25, 15:43 Carbon Dioxide, (21.0-32.0) 28.9 mmol/L 03/22/25, 15:43 BUN, (7-18) 16 mg/dL 03/22/25, 15:43 Creatinine, (0.70-1.30) 1.1 mg/dL 03/22/25, 15:43 Est GFR (CKD-EPI 2020), (mL/min/1.73m2) 72.67 03/22/25, 15:43 Magnesium, (1.8-2.4) 2.0 mg/dL 03/22/25, 15:43 Calcium, (8.5-10.1) 8.7 mg/dL 03/22/25, 15:43 Albumin, (3.4-5.0) 3.9 g/dL 03/22/25, 15:43 Glucose, (74-106) 93 mg/dL 03/22/25, 15:43 Liver Function Panel: ALT, (16-63) 27 U/L 03/22/25, 15:43 AST, (15-37) 18 U/L 03/22/25, 15:43 Cardiac Panel: Troponin I, (<or=76) 7 ng/L 03/22/25 Pancreas Panel: Lipase, (<78) 36 U/L 03/22/25, 15:43 Imaging and Studies Imaging and Studies Study information below may be from another EMR and interpreted by another provider. Please see original notes in EMR for more complete details. EKG Summary: :08/11/22: Sinus rhythm...normal P axis, V-rate 50- 99 Possible inferior infarct, old...Q >35mS, II III aVF Suspected chest leads reversed, V1 for V3 Anesthesia Assessment and Plan Anesthesia History Personal History: No History of Anesthesia Complications Family History: No Family History of Anesthesia Complications Exercise Tolerance Exercise Tolerance: Metabolic Equivalents>4 Pertinent Negatives Pertinent Negatives: No Symptoms of GERD, No Major Cardiovascular Symptoms or Complaints and No Major Pulmonary Symptoms or Complaints Cardiac & Pulmonary Exam Cardiac Exam: Normal S1/S2 Heart Sounds Pulmonary Exam: Clear Bilateral Breath Sounds Implantable Cardiac Device Does patient have a Pacemaker or an ICD?: No Airway Exam Known Difficult Airway: No Mallampati Class: 4 Mouth Opening: Normal (> 3cm) Thyromental Distance: Greater than 3 cm Neck Range of Motion: Limited ROM Neck Circumference: Normal Teeth Condition: Generalized Poor Dentition and Loose or Chipped (chipped front tooth- none loose ) ASA Classification ASA Score: ASA 2 Emergency Case?: No NPO Status NPO Status: NPO Clears >2 hours, Solids >8 hours Anesthesia Plan Resuscitation Status: Full Code Anesthesia Technique: General Anesthesia Airway Planned: Natural Airway Monitors Used: Standard Monitors Preoperative Comments:: Previous anesthetic: Pierson 3, grade I
[2025-04-21 08:16] VITALS: BMI 26.5
[2025-04-21] MEDS: ceFAZolin 2 GM/50 ML BAG IVPB (08:40)
--- NOTE | 2025-04-21 08:56 | PAPNONF_PTH ---
PATIENT: Edwin Weiss LOC: [facility] U#:[id number] AGE/SX: 69/M ROOM: RE04/21/[address]: Oliverio Echeverria MD : 1955 BED: DIS: 04/21/2025 SPEC #: [id number] RECD: 04/21/25 13:26 STATUS: MARTINE CLAUDIO #: [id number] JAMEE: 04/21/25 08:[address]: Oliverio Echeverria DEPT: [facility] Cytology RECD BY: Akila Velazquez ENTERED: 04/21/25 13:26 SP TYPE: KARL HOLDER DR: Sirena Eli APRN Tissues: 1 - BODY FLUID CYTO(SPUTUM/URINE)[facility] Procedures: BODY FLUID CYTO(URINE/SPUTUM) Comments: [id number] (TV = 70 ml, 30 ml CYTOLYT ADDED) (REFRIGERATED)
[2025-04-21] MEDS: Omnipaque 300 MG/ML 50 ML BTL (08:58)
[2025-04-21] MEDS: Lidocaine 2% Jelly 11 ML SYR (08:58)
--- NOTE | 2025-04-21 09:05 | DI.RAD_ITS ---
Exam(s) XR RETROGRADE IN OR EXAM: XR RETROGRADE IN OR CLINICAL HISTORY: GROSS HEMATURIA. TECHNIQUE: Fluoroscopy was provided for the referring physician for guidance with performing retrograde procedure. COMPARISON: CT CT ABDOMEN PELVIS W from 03/22/2025 FINDINGS: Please see procedure note for details. Fluoro time: 21.4 seconds RADIATION DOSE DELIVERED: lalita Leong=5.87 mGy
--- NOTE | 2025-04-21 09:17 | W.PM.DSUDISC ---
Date of service: 04/21/25 Discharge Plan Disposition Patient Disposition: Home Condition: Stable Discharge Details Reason For Visit: cystoscopy Attending Provider: Oliverio Echeverria Primary Care Provider: Sirena Eli Home Meds and New Rx's Prescriptions: No Action tamsulosin 0.4 mg capsule 0.4 mg PO DAILY Qty: 90 3RF aspirin [Aspir-81] 81 MG tablet,delayed release (DR/EC) 81 mg PO DAILY Qty: 1 acetaminophen 500 mg tablet 1,000 mg PO .Q8 HR PRN Rx Instructions: Around the clock until 05/18/2024 simvastatin 40 mg tablet See Rx Instructions .ROUTE .COMPLEX Qty: 90 3RF Dose Instruction: TAKE ONE TABLET BY MOUTH EVERY DAY Rx Instructions: TAKE ONE TABLET BY MOUTH EVERY DAY Discharge Instructions Additional Instructions: Do not be surprised if you see blood in the urine for the next 3 to 5 days after the cystoscopy. Please drink plenty of fluids to flush the blood out of your system so does not perform clots in the urine I did take a urine cytology sample. We should discuss the results when they are available in 1 to 2 weeks. This discussion can even be done by phone if it is easier for you. Activity:: Activity as Tolerated Shower/Bathe:: 24 hours Diet:: As Tolerated Discharge Orders Discharge Orders: Discharge Order (Routine); Ordered 04/21/25 Ordered By: Oliverio Echeverria DS: Diagnosis Discharge Diagnosis (1) Gross hematuria: Status: Acute
[2025-04-21 09:18] VITALS: BP 107/74; PULSE 57; RESP 16; TEMP 36.3; O2SAT 96
--- NOTE | 2025-04-21 09:19 | W.PM.OP ---
Operative Note Operative Note PRE-OP DIAGNOSIS: Gross hematuria POST-OP DIAGNOSIS: same PROCEDURE: cystoscopy with bilateral retrograde pyelogram SURGEON: Oliverio Echeverria ANESTHESIA TYPE: Local By Surgeon and General:No Airway Refer to Anesthesia Record ESTIMATED BLOOD LOSS: 5 PATHOLOGY: other (urine for cytology) COMPLICATIONS: None Patient was transported to: same day Patient's condition: stable Implants: None Indications: This is a 69-year-old gentleman who has a history of an elevated PSA. He recently had an episode of gross painless hematuria. He had a CT scan with contrast which showed no solid renal masses and no obvious bladder lesions. He presents for cystoscopy with bilateral retrograde pyelogram and possible transurethral resection of any visible bladder tumor Findings: markedly enlaged prostate with no concerning bladder lesions Procedure Description: The patient was given IV antibiotics and brought to the operating room on 04/21/2025. After successful induction of general anesthesia without intubation, he was placed in the dorsal lithotomy position. His genitalia was prepped and draped. 2% Xylocaine jelly was instilled into the urethra to act as a local anesthetic. A 22 [place] rigid cystoscope was passed through the urethra into the bladder. The urethra and bladder were inspected using a 30 degree lens. The pendulous, bulbar and membranous urethra was all appeared normal with no strictures. The prostatic urethra showed trilobar enlargement with significant lateral lobe hypertrophy and a prominent median lobe jutting back into the bladder. No mucosal-based lesions were seen in the prostatic urethra. The bladder neck was entered and the bladder mucosa was inspected. No papillary or nodular lesions were seen throughout the bladder. I was able to identify each ureteral orifice and cannulate the orifice with a 5 [place] access catheter. On the left side, cannulating the orifice required passing a Glidewire up the ureter to allow the access catheter to pass freely. Retrograde pyelograms were then obtained by injecting Omnipaque through the access catheter under fluoroscopic guidance. No persistent filling defects were seen on the retrograde pyelograms. Both kidneys and collecting systems drained promptly on a 5-minute drainage fill. The bladder was reinspected using a 70 degree lens. Again, I found no concerning bladder lesions on my examination. The bladder was emptied and the cystoscope was withdrawn. The patient tolerated this procedure well with no complications. Date of Procedure: 04/21/25
[2025-04-21 09:47] VITALS: BP 124/79; PULSE 52; RESP 17; TEMP 36.5; O2SAT 96
--- NOTE | 2025-04-21 09:52 | W.ANESPOSTOP ---
Postoperative Evaluation Date, Time and Location Date Performed: 04/21/25 Time Performed: 09:53 Patient Location: Day Surgery Unit Vital Signs Most Recent Imported Vital Signs: Most Recent Vital Signs Temp Pulse Resp BP Pulse Ox 36.3 C L 57 L 16 107/74 96 04/21/25 09:18 04/21/25 09:18 04/21/25 09:18 04/21/25 09:18 04/21/25 09:18 Pain Score Most Recent Pain Score: Most Recent Pain Score Pain Level 0 04/21/25 09:18 Assessment Mental Status: Awake (Alert & Oriented to Patient Baseline) Airway and Respiratory Function: Patent airway with normal (patient baseline) respiratory exam Cardiovascular Function: Hemodynamically Stable Hydration Status: Adequately Hydrated Nausea & Vomiting: No Nausea or Vomiting Pain: Pt. Denies Any Pain Peripheral Nerve Block: Patient did not receive a nerve block
[2025-04-21] MEDS: Phenazopyridine 200 MG TAB PO (10:18)
== END 2025-04-21 10:23 | disposition home or self-care (01) ==
PROVIDERS: PCP Nurse Practitioner; Visit Provider Urology
PROC: 0TBB8ZZ Excision of Bladder, Via Natural or Artificial Opening Endoscopic (ICD-10-PCS; CPT 52005; principal; 2025-04-21 08:30)
DX: R31.0 Gross hematuria (principal)
CPT/HCPCS: 52005; 74420; 88104; J0690; J1885; J2003; J2405; J2704; J3010; Q9967